=== PATIENT | female | born 1980 | race Caucasian/White ===

== ENCOUNTER 2016-08-25 20:53 | Emergency (ER) | payer BC, OTHER ==
[~2016-08-25] VITALS: Ht 152.4 cm; Wt 79.4 kg
[~2016-08-25 20:53] MED LIST: AC500T PO; ACET-2222 PO; AMOX500C2 PO; AZIT-21 PO; CLIN150C17 PO; CLIN300C11 PO; CLOT15CR4 TP; CPH250CIP PO; CPR500T PO; CYCL-97 PO; CYCL10TA45 PO; CYCL10TA9 PO; DCS100C PO; DICL25CA4 PO; FAMO20TA5 PO; FERR-47 PO; FLC100T1 PO; GABA-488 PO; HYDR-34 PO; HYDR-3720 PO; HYDR-3816 PO; HYDROCODONE; IBP800T PO; IBUP-1780 PO; LNS30CCR; NAPR-243 PO; NAPR-689 PO; NAPR550T PO; OMEP-10 PO; PHEN37.555; PHEN37.555 PO; PREN1TAB25 PO; RNT150T PO; SULF1TAB38 PO; TRAM50TA2 PO; TRM50T PO
[2016-08-25] MEDS ORDERED: KETOROLAC 60 MG/2 ML VIAL IM ONE (22:45)
[2016-08-25] MEDS ORDERED: PRD20T PO (22:45)
--- NOTE | 2016-08-25 22:46 | ED General ---
General Chief Complaint: Chest Wall/Rib Pain Stated Complaint: CHEST PAIN Nursing Triage Note: c/o left upper chest wall pain x2 weeks, seen at [facility] friday given motrin/flexeril. pt reports pain worse x2 days. denies injury. Nursing Sepsis Screen: No Definite Risk Source of Information: Patient Exam Limitations: No Limitations History of Present Illness Time Seen by Provider: 22:14 Initial Comments This 35-year-old woman presents to the emergency room with right hand paresthesias and pain around the left clavicle and left upper arm. Pain started a couple weeks ago. She was seen at the [facility] earlier last week. She has been taking ibuprofen without significant improvement. She takes Flexeril as well which helps her sleep but has not resolved the pain. Pain is a little worse with deep breathing and she has tenderness over the above -described areas. She also describes some pain with turning her neck. Allergies and Home Medications Allergies Coded Allergies: No Known Drug Allergies (Unverified , 01/09/09) Home Medications Cyclobenzaprine HCl 10 Mg Tablet #10 10 MG PO TID PRN PRN SPASMS Prescribed by: AMEENA ITWARI on 01/08/16 0325 Ibuprofen 800 Mg Tablet #20 1 TAB PO UD PRN PRN PAIN (Reported) Prednisone 20 Mg Tab #4 20 MG PO DAILY Prescribed by: AMEENA TIWARI on 08/25/16 8505 Constitutional: no symptoms reported EENTM: no symptoms reported Respiratory: no symptoms reported Cardiovascular: no symptoms reported Gastrointestinal: no symptoms reported Genitourinary: no symptoms reported Musculoskeletal: see HPI Skin: no symptoms reported Psychiatric/Neurological: See HPI Hematologic/Lymphatic: No Symptoms Reported Past Wxdoswv-Potfmg-Aggqsc Hx Patient Social History Alcohol Use: Denies Use Recreational Drug Use: No Smoking Status: Current Everyday Smoker Type Used: Cigarettes Recent Foreign Travel: No Contact w/Someone Who Travel: No Recent Infectious Disease Expo: No Recent Hopitalizations: No Immunizations Up To Date Tetanus Booster (TDap): Unknown Seasonal Allergies Seasonal Allergies: No Surgeries HX Surgeries: Yes (5 C-SECTIONS) Surgeries: Section Respiratory Hx Respiratory Disorders: No Cardiovascular Hx Cardiac Disorders: No Neurological Hx Neurological Disorders: Yes Neurological Disorders: Headaches /Migraines Reproductive System : No Hx : 5 Hx Para: 5 Hx Reproductive Disorders: No Sexually Transmitted Disease: No Female Reproductive Disorders: Denies Genitourinary Hx Genitourinary Disorders: Yes Genitourinary Disorders: UTI-Chronic Gastrointestinal Hx Gastrointestinal Disorders: No Musculoskeletal Hx Musculoskeletal Disorders: Yes Musculoskeletal Disorders: Arthritis, Chronic Back Pain Endocrine Hx Endocrine Disorders: No HEENT HX ENT Disorders: No Cancer Hx Cancer: No Psychosocial Hx Psychiatric Problems: No Integumentary HX Skin/Integumentary Disorder: Yes (Chronic dermatitis of the hands) Blood Transfusions Hx Blood Disorders: No Adverse Reaction to a Blood Tr: No Family Medical History Significant Family History: No Pertinent Family Hx Family Medial History: Family history: Hypertension 19 MOTHER Physical Exam Vital Signs Vital Sign - Last 12Hours 08/25/16 21:11 Temp 97.6 Pulse 89 Resp 16 B/P 123/74 Pulse Ox 99 O2 Delivery Room Air Capillary Refill : Less Than 3 Seconds General Appearance: No Apparent Distress WD/WN HEENT: PERRL/EOMI Normal ENT Inspection Neck: Normal Inspection Tender Lateral (Over the left paraspinous muscles) Respiratory: Lungs Clear Normal Breath Sounds No Accessory Muscle Use No Respiratory Distress Other (Upper left anterior chest is tender near the sternoclavicular joint and beneath the left clavicle) Cardiovascular: Regular Rate, Rhythm No Edema No Murmur Gastrointestinal: Non Tender Soft Extremity: Normal Inspection No Pedal Edema Neurologic/Psychiatric: Alert Oriented x3 No Motor/Sensory Deficits Normal Mood/Affect clamp operator II-XII Norm as Tested Skin: Normal Color Warm/Dry Progress/Results/Core Measures Results/Orders My Orders Orders-AMEENA CAO MD Chest Pa/Lat (2 View) (08/25/16 22:21) Ketorolac Injection (Toradol Injection) (08/25/16 22:45) Vital Signs/I&O Blood Pressure Mean: 90 Progress Note : Progress Note Pain appeared to be musculoskeletal in nature with tenderness over the left upper anterior chest near the clavicle and over the left neck. Toradol was administered in the ER. Chest x-ray was unremarkable. Diagnostic Imaging Diagonstic Imaging: Xray Plain Films/CT/US/NM/MRI: chest Comments Chest x-ray viewed by me and report not yet available. No acute abnormalities appreciated. Departure Impression Impression: Primary Impression: Chest wall pain Additional Impression: Neck pain on left side Disposition: 01 HOME, SELF-CARE Condition: Improved Departure-Patient Inst. Decision time for Depature: 22:35 Referrals: [facility] (PCP/Family) Primary Care Physician Patient Instructions: Chest Pain That Is Not Caused by the Heart (DC) Add. Discharge Instructions: You may continue using Tylenol and/or ibuprofen for pain. Use the prednisone as prescribed. Take prednisone and ibuprofen with food or milk to avoid irritation on your stomach. Follow-up with your primary care provider if not improving after a few days. All discharge instructions reviewed with patient and/or family. Voiced understanding. Scripts Prednisone 20 Mg Tab20 Mg PO DAILY #4 TAB Prov:AMEENA CAO MD 08/25/16 AMEENA CAO MD Aug 25, 2016 22:45
[2016-08-25 22:54] VITALS: BP 100/63
--- NOTE | 2016-08-26 07:59 | Diagnostic Imaging Report ---
INDICATION: Left upper chest wall pain for two weeks, no known injury. DISCUSSION: 2 views of the chest were obtained, comparison 11/11/2010. The heart and lungs are normal. No acute osseous abnormality identified. IMPRESSION: Negative chest. Dictated by: Dictated on workstation # [id number]
== END 2016-08-25 22:54 | disposition home or self-care (01) ==
LOC: EDUNIT# 20:53 → ER 20:56
DX: R07.89 Other chest pain (principal); M54.2 Cervicalgia; R20.2 Paresthesia of skin; F17.210 Nicotine dependence, cigarettes, uncomplicated
CPT/HCPCS: 71020; 96372; 99283

== ENCOUNTER 2017-08-05 21:42 | Emergency (ER) | payer OTHER ==
[~2017-08-05] VITALS: Ht 154.9 cm; Wt 77.1 kg
[~2017-08-05 21:42] MED LIST changes: -HYDR-3816 PO; +PRD20T PO
--- OUTSIDE RECORDS SUMMARY | 2017-08-05 21:47 | XMS REPORT ---
Author Author JUN LO [facility] Address Unknown Care Team Providers Care District Manager Major Accounts Sales Name Role Phone JUN LO Unavailable PROBLEMS Type Condition ICD9-CM Code [id number] Code Onset Dates Condition Status SNOMED Code Problem Bilateral low back pain without sciatica M54.5 Active 728484916 Problem Muscle spasm of back M62.830 Active 177624033 Assessment Dental examination Z01.20 Jan, Active 933203869 ALLERGIES Substance Reaction Event Type Date Status N.K.D.A. Unknown Non Drug Allergy Jan, Unknown SOCIAL HISTORY No smoking Hx information available PLAN OF CARE VITAL SIGNS Height 60 in 2016-02-01 Blood pressure systolic 121 mmHg 2016-02-01 Blood pressure diastolic 84 mmHg 2016-02-01 MEDICATIONS Medication Instructions Dosage Frequency Start Date End Date Duration Status Azithromycin 250 MG Orally Once a day 2 tablets on the first day, then 1 tablet daily for 4 days 24h Jan, Jan, 5 day(s) Active Naproxen 500 MG Orally every 12 hrs 1 tablet as needed 12h Active Flexeril Active Motrin IB 200 MG Orally every 6 hrs 1 tablet as needed 6h Jan, Jan, 5 days Active RESULTS No Results PROCEDURES Procedure Date Ordered Related Diagnosis Body Site Dental no charge Feb 01, 2016 IMMUNIZATIONS No Known Immunizations
--- OUTSIDE RECORDS SUMMARY | 2017-08-05 21:48 | XMS REPORT ---
Author Author JUN LO [employer] Address Unknown Phone Unavailable Care Team Providers Care Image Editor Name Role Phone JUN LO CP Unavailable Allergies, Adverse Reactions, Alerts Substance Reaction Event Type N.K.D.A. Info Not Available Non Drug Allergy Problems Problem Type Condition Code Onset Dates Condition Status Problem Muscle spasm of back M62.830 Active Assessment Dental examination Z01.20 Active Problem Bilateral low back pain without sciatica M54.5 Active Medications Medication Code System Code Instructions Start Date End Date Status Dosage [place] [facility] [address]-25 5-325 MG Orally every 6 hrs Jan 12, 2016 Jan 17, 2016 1 tablet as needed Gabapentin [facility] [address]-76 300 MG Orally Three times a day December 15, 2015 1 capsule Amoxicillin [facility] [address]-18 500 MG Orally every 8 hrs Jan 12, 2016 Jan 17, 2016 1 capsule Procedures Procedure Coding System Code Date LTD ORAL EVALUATION - PROBLEM FOCUS CPT-4 D0140 Jan 12, 2016 Vital Signs Date/Time: Jan 12, 2016 Blood Pressure Diastolic 84 mmHg Blood Pressure Systolic 122 mmHg Height 60 in Results No Known Results Summary Purpose [employer] Submission
--- OUTSIDE RECORDS SUMMARY | 2017-08-05 21:48 | XMS REPORT ---
Author Author ONI MA [facility] Address [address] [place] [address] Care Team Providers Care Patrol Judge Name Role Phone ONI MA Unavailable PROBLEMS Type Condition ICD9-CM Code PBY07-SF Code Onset Dates Condition Status SNOMED Code Problem Muscle spasm of back M62.830 Active 168003598 Problem Bilateral low back pain without sciatica M54.5 Active 586126055 ALLERGIES No Information SOCIAL HISTORY Never Assessed PLAN OF CARE VITAL SIGNS MEDICATIONS Unknown Medications RESULTS No Results PROCEDURES No Known procedures IMMUNIZATIONS No Known Immunizations MEDICAL (GENERAL) HISTORY Type Description Date Surgical History sectionx5 Hospitalization History Kidney infection
--- OUTSIDE RECORDS SUMMARY | 2017-08-05 21:48 | XMS REPORT ---
Author Author JOSE RAFAEL PORRAS Organization [employer] Address Unknown Phone Unavailable Care Team Providers Care Pinked Edge Sewing Machine Operator Name Role Phone JOSE RAFAEL PORRAS CP Unavailable Allergies No Known Allergies Problems Problem Type Condition ICD-9 Code Onset Dates Condition Status Problem Encounter for removal of intrauterine contraceptive device V25.12 Active Problem Contact dermatitis and other eczema due to detergents 692.0 Active Problem General counseling for prescription of oral contraceptives V25.01 Active Assessment Dental examination V72.2 Active Problem examination or test, positive result V72.42 Active Problem Previous delivery, unspecified as to episode of care or not applicable 654.20 Active Problem Spasm of muscle 728.85 Active Problem Tobacco use disorder complicating , childbirth, or the puerperium, unspecified as to episode of care or not applicable 649.00 Active Problem Pain in soft tissues of limb 729.5 Active Problem Other malaise and fatigue 780.79 Active Problem Headache 784.0 Active Problem Bicipital tenosynovitis 726.12 Active Medications No Known Medications Procedures Procedure Coding System Code Date INTRAORL-PERIAPICAL 1 FILM 03797 CPT-4 D0220 Feb 01, 2015 BITEWING - SINGLE FILM CPT-4 D0270 Feb 01, 2015 LTD ORAL EVALUATION - PROBLEM FOCUS CPT-4 D0140 Feb 01, 2015 EXTRAC ERUPTED TOOTH/EXPOSED ROOT CPT-4 D7140 Feb 01, 2015 Results No Known Results Summary Purpose [employer] Submission
--- OUTSIDE RECORDS SUMMARY | 2017-08-05 21:48 | XMS REPORT ---
Author VANDANA Alvarez Organization [employer] Address Unknown Phone Unavailable Care Team Providers Care Novelty Candy Maker Name Role Phone VANDANA SINCLAIR CP Unavailable Allergies, Adverse Reactions, Alerts Substance Reaction Event Type N.K.D.A. Info Not Available Non Drug Allergy Problems Problem Type Condition Code Onset Dates Condition Status Problem Muscle spasm of back M62.830 Active Assessment Bilateral low back pain without sciatica M54.5 Active Problem Bilateral low back pain without sciatica M54.5 Active Assessment Muscle spasm of back M62.830 Active Medications Medication Code System Code Instructions Start Date End Date [place] [address]-10 500 MG Orally every 12 hrs Jun 27, 2015 August 26, 2015 1 tablet as needed Cyclobenzaprine HCl [facility] [address]-45 10 MG Orally Three times a day JunAugust 26, 2015 1 tablet Flexeril NDC 0 not defined Tramadol HCl NDC 0 not defined Naproxen NDC [address]-28 500 MG Orally every 12 hrs 1 tablet as needed Procedures Procedure Coding System Code Date Office Visit, Est Pt., Level 3 CPT-4 88840 Jun 27, 2015 X-RAY EXAM OF LOWER SPINE CPT-4 63418 Jun 27, 2015 Vital Signs Date/Time: Jun 27, 2015 Temperature 98.5 F Weight 185.9 lbs Height 60 in BMI 36.30 Index Blood Pressure Diastolic 60 mmHg Blood Pressure Systolic 110 mmHg Cardiac Monitoring Heart Rate 88 bpm Results No Known Results Summary Purpose [employer]Works Submission
--- OUTSIDE RECORDS SUMMARY | 2017-08-05 21:48 | XMS REPORT ---
Author Author TORRES TRENT [facility] [employer] Address Unknown Phone Unavailable Care Team Providers Care Steam Fitter Supervisor Name Role Phone TORRES TRENT CP Unavailable Allergies, Adverse Reactions, Alerts Substance Reaction Event Type N.K.D.A. Info Not Available Non Drug Allergy Problems Problem Type Condition Code Onset Dates Condition Status Problem Muscle spasm of back M62.830 Active Assessment Dental examination Z01.20 Active Problem Bilateral low back pain without sciatica M54.5 Active Medications Medication Code System Code Instructions Start Date End Date Status Dosage [place] [facility] [address]-99 5-325 MG Orally every 6 hrs 1 tablet as needed Tramadol HCl [facility] [address]-72 50 mg Orally every 6 hrs December 15, 2015 1 tablet as needed Gabapentin [facility] [address]-93 300 MG Orally Three times a day December 15, 2015 1 capsule Clindamycin HCl [facility] [address]-61 300 MG Orally every 8 hrs December 15, 2015 December 22, 2015 1 capsule Procedures Procedure Coding System Code Date LTD ORAL EVALUATION - PROBLEM FOCUS CPT-4 D0140 December 19, 2015 Results No Known Results Summary Purpose eClinicalWorks Submission
--- OUTSIDE RECORDS SUMMARY | 2017-08-05 21:48 | XMS REPORT ---
Author Author VANDANA SINCLAIR Organization [employer] Address Unknown Phone Unavailable Care Team Providers Care Insurance Plan Specialist Name Role Phone VANDANA SINCLAIR CP Unavailable Allergies No Known Allergies Problems Problem Type Condition Code Onset Dates Condition Status Problem Muscle spasm of back M62.830 Active Assessment Bilateral low back pain without sciatica M54.5 Active Problem Bilateral low back pain without sciatica M54.5 Active Medications Medication Code System Code Instructions Start Date End Date Status Dosage PredniSONE [facility] [address]-43 10 MG Orally Once a day Jun 30, 2015 Jul 10, 2015 4 tablets for 4 days, then 3 tablets for 3 days, then 2 tablets for 2 days, then 1 tablet for 1 day. Results No Known Results Summary Purpose [employer] Submission
--- OUTSIDE RECORDS SUMMARY | 2017-08-05 21:48 | XMS REPORT ---
Author Author VANDANA SINCLAIR Organization [employer] Address Unknown Phone Unavailable Care Team Providers Care Water Fitness Instructor Name Role Phone VANDANA SINCLAIR CP Unavailable Allergies No Known Allergies Problems Problem Type Condition Code Onset Dates Condition Status Problem Muscle spasm of back M62.830 Active Problem Bilateral low back pain without sciatica M54.5 Active Medications No Known Medications Results No Known Results Summary Purpose [employer] Submission
--- OUTSIDE RECORDS SUMMARY | 2017-08-05 21:49 | XMS REPORT | Continuity of Care Document ---
Author Author [facility] Address Unknown Phone Unavailable Allergies Active Description Code Type Severity Reaction Onset Reported/Identified Relationship to Patient Clinical Status Yes No Known Drug Allergies [id number] Drug Allergy Mild N/A 01/09/2009 Medications There is no data. Problems Date Dx Coded Attending Type Code Diagnosis Diagnosed By 10/05/2009 ONI MA DO V65.11 NEW MOMMY VISIT 10/05/2009 V65.11 NEW MOMMY VISIT 10/05/2009 ONI MA DO V65.11 NEW MOMMY VISIT 10/05/2009 ONI MA DO V65.11 NEW MOMMY VISIT 10/05/2009 ONI MA DO V65.11 NEW MOMMY VISIT 10/05/2009 KASSIE FALK APRN A V65.11 NEW MOMMY VISIT 10/05/2009 ONI MA DO V65.11 NEW MOMMY VISIT 07/22/2012 ONI MA DO 726.12 BICIPITAL TENOSYNOVITIS 07/22/2012 ONI MA DO K 729.5 ARM PAIN 07/22/2012 726.12 BICIPITAL TENOSYNOVITIS 07/22/2012 729.5 ARM PAIN 07/22/2012 ONI MA DO 726.12 BICIPITAL TENOSYNOVITIS 07/22/2012 ONI MA DO K 729.5 ARM PAIN 07/22/2012 ONI MA DO K 726.12 BICIPITAL TENOSYNOVITIS 07/22/2012 ONI MA DO K 729.5 ARM PAIN 07/22/2012 ONI MA DO K 726.12 BICIPITAL TENOSYNOVITIS 07/22/2012 PAULA MA DOA K 729.5 ARM PAIN 07/22/2012 KASSIE FALK APRN A 726.12 BICIPITAL TENOSYNOVITIS 07/22/2012 KASSIE FALK APRN A 729.5 ARM PAIN 07/22/2012 MA DO, ONI K 726.12 BICIPITAL TENOSYNOVITIS 07/22/2012 MA DO, ONI K 729.5 ARM PAIN 11/04/2012 V25.01 CONTRACEPTION - ORAL CONTRACEPTION 11/04/2012 V25.12 IUD REMOVAL 11/04/2012 MA DO, ONI K V25.01 CONTRACEPTION - ORAL CONTRACEPTION 11/04/2012 MA DO, ONI K V25.12 IUD REMOVAL 11/04/2012 MA DO, ONI K V25.01 CONTRACEPTION - ORAL CONTRACEPTION 11/04/2012 MA DO, ONI K V25.12 IUD REMOVAL 11/04/2012 MA DO, ONI K V25.01 CONTRACEPTION - ORAL CONTRACEPTION 11/04/2012 MA DO, ONI K V25.12 IUD REMOVAL 11/04/2012 DEYA POSTAL INSPECTOR, KASSIE A V25.01 CONTRACEPTION - ORAL CONTRACEPTION 11/04/2012 DEYA POSTAL INSPECTOR, KASSIE A V25.12 IUD REMOVAL 11/04/2012 MA DO, ONI K V25.01 CONTRACEPTION - ORAL CONTRACEPTION 11/04/2012 MA DO, ONI K V25.12 IUD REMOVAL 03/16/2013 MA DO, ONI K 728.85 SPASM OF MUSCLE 03/16/2013 MA DO, ONI K 784.0 HEADACHE 03/16/2013 MA DO, ONI K 728.85 SPASM OF MUSCLE 03/16/2013 MA DO, ONI K 784.0 HEADACHE 03/16/2013 MA DO, ONI K 728.85 SPASM OF MUSCLE 03/16/2013 MA DO, ONI K 784.0 HEADACHE 03/16/2013 DEYA POSTAL INSPECTOR, KASSIE A 728.85 SPASM OF MUSCLE 03/16/2013 DEYA POSTAL INSPECTOR, KASSIE A 784.0 HEADACHE 03/16/2013 MA DO, ONI K 728.85 SPASM OF MUSCLE 03/16/2013 MA DO, ONI K 784.0 HEADACHE 03/24/2013 MA DO, ONI K 780.79 fatigue 03/24/2013 MA DO, ONI K 799.22 IRRITABILITY 03/24/2013 MA DO, ONI K 780.79 fatigue 03/24/2013 MA DO, ONI K 799.22 IRRITABILITY 03/24/2013 DEYA POSTAL INSPECTOR, KASSIE A 780.79 fatigue 03/24/2013 KASSIE FALK APRN A 799.22 IRRITABILITY 03/24/2013 ONI MA DO K 780.79 fatigue 03/24/2013 ONI MA DO K 799.22 IRRITABILITY 04/07/2013 ONI MA DO V72.42 EXAMINATION OR TEST POSITIVE RESULT 04/07/2013 KASSIE FALK APRN A V72.42 EXAMINATION OR TEST POSITIVE RESULT 04/07/2013 ONI MA DO K V72.42 EXAMINATION OR TEST POSITIVE RESULT 05/11/2013 KASSIE FALK APRN A 649.00 COMPL OF - TOBACCO USE 05/11/2013 KASSIE FALK APRN A 654.20 PREVIOUS 05/11/2013 ONI MA DO K 649.00 COMPL OF - TOBACCO USE 05/11/2013 ONI MA DO K 654.20 PREVIOUS 05/15/2014 ZAYRA OLMSTEAD MD Ot 723.4 05/15/2014 ZAYRA OLMSTEAD MD Ot 724.2 03/23/2015 Ot L25.9 12/05/2015 SRIDHAR ORTIZ APRN Ot F17.210 NICOTINE DEPENDENCE, CIGARETTES, UNCOMPL 12/05/2015 SRIDHAR ORTIZ APRN Ot R51 HEADACHE 12/06/2015 SRIDHAR ORTIZ APRN Ot F17.210 NICOTINE DEPENDENCE, CIGARETTES, UNCOMPL 12/06/2015 SRIDHAR ORTIZ APRN Ot R51 HEADACHE 12/17/2015 SRIDHAR ORTIZ APRN Ot K02.9 DENTAL CARIES, UNSPECIFIED 12/19/2015 SRIDHAR ORTIZ APRN Ot K02.9 DENTAL CARIES, UNSPECIFIED 01/08/2016 KILEY DONALD, AMEENA Duran Ot F17.210 NICOTINE DEPENDENCE, CIGARETTES, UNCOMPL 01/08/2016 KILEY DONALD, AMEENA Duran Ot R11.2 NAUSEA WITH VOMITING, UNSPECIFIED 01/08/2016 KILEY DONALD, AMEENA Duran Ot R51 HEADACHE 01/08/2016 KILEY DONALD, AMEENA Duran Ot S16.1XXA STRAIN OF MUSCLE, FASCIA AND TENDON AT N 01/08/2016 AMEENA CAO MD Ot X58.XXXA EXPOSURE TO OTHER SPECIFIED FACTORS, INI 01/08/2016 KILEY DONALD, AMEENA Duran Ot Y99.8 OTHER EXTERNAL CAUSE STATUS 08/25/2016 AMEENA CAO MD Ot F17.210 NICOTINE DEPENDENCE, CIGARETTES, UNCOMPL 08/25/2016 AMEENA CAO MD Ot M54.2 CERVICALGIA 08/25/2016 AMEENA CAO MD Ot R07.89 OTHER CHEST PAIN 08/25/2016 AMEENA CAO MD Ot R20.2 PARESTHESIA OF SKIN 08/27/2016 AMEENA CAO MD Ot F17.210 NICOTINE DEPENDENCE, CIGARETTES, UNCOMPL 08/27/2016 AMEENA CAO MD Ot M54.2 CERVICALGIA 08/27/2016 AMEENA CAO MD Ot R07.89 OTHER CHEST PAIN 08/27/2016 AMEENA CAO MD Ot R20.2 PARESTHESIA OF SKIN Procedures Code Description Performed By Performed On MATTHEW OBREGON 07/22/2012 93029 ANTIBODY SCREEN (order) 05/11/2013 77086 URINE TEST (IN- HOUSE) 05/11/2013 04795 UA OB DIP 05/11/2013 36778 CBC 05/11/2013 26459 TSH 05/11/2013 88506 HEP B SURFACE ANTIGEN (RML) 05/11/2013 92213 SYPHILLIS TEST 05/11/2013 4553568 ANTIBODY SCREEN (RESULT ONLY) 05/12/2013 75409 BLOOD TYPE/Rh FACTOR 05/12/2013 90236 HIV ANTIBODIES (RML) 05/12/2013 97259 RUBELLA ANTIBODY, IGG 05/12/2013 48435 CULTURE URINE 05/12/2013 Results There is no data. Encounters ACCT No. Visit Date/Time Discharge Status Pt. Type Provider Facility Loc./Unit Complaint [id number] 05/11/2013 10:53:00 05/11/2013 23:59:59 CLS Outpatient ONI MA DO [id number] 05/11/2013 10:53:00 05/11/2013 23:59:59 CLS Outpatient KASSIE FALK APRN [id number] 04/07/2013 09:31:00 04/07/2013 23:59:59 CLS Outpatient ONI MA DO [id number] 03/24/2013 16:34:00 03/24/2013 23:59:59 CLS Outpatient ONI MA DO [id number] 03/16/2013 18:22:00 03/16/2013 23:59:59 CLS Outpatient ONI MA DO [id number] 07/22/2012 14:13:00 07/22/2012 23:59:59 CLS Outpatient ONI MA DO [id number] 11/04/2012 11:49:00 Document Registration [id number] 08/25/2016 20:56:00 08/25/2016 22:54:00 DIS Emergency AMEENA CAO MD [facility] ER CHEST PAIN [id number] 01/08/2016 02:12:00 01/08/2016 03:33:00 DIS Emergency AMEENA CAO MD [facility] ER HEADACHES, N/V [id number] 12/17/2015 22:03:00 12/17/2015 22:35:00 DIS Emergency SRIDHAR ORTIZ APRN [facility] ER DENTAL PAIN [id number] 12/05/2015 20:58:00 12/05/2015 22:51:00 DIS Emergency SRIDHAR ORTIZ POSTAL INSPECTOR [facility] ER [id number] 05/15/2014 12:20:00 05/15/2014 14:26:00 DIS Emergency ZAYRA OLMSTEAD MD [facility] ER [id number] 11/25/2013 10:00:00 11/27/2013 17:53:00 DIS Inpatient [id number] 11/18/2013 11:15:00 11/18/2013 23:59:59 CLS Outpatient [id number] 11/08/2013 17:10:00 11/08/2013 18:45:00 DIS Outpatient [id number] 10/16/2013 17:21:00 10/16/2013 19:55:00 DIS Outpatient [id number] 09/14/2013 09:42:00 09/14/2013 23:59:59 CLS Outpatient [id number] 08/26/2013 17:21:00 08/26/2013 19:07:00 DIS Outpatient [id number] 08/19/2013 14:03:00 08/19/2013 23:59:59 CLS Outpatient [id number] 08/18/2013 18:23:00 08/18/2013 20:00:00 DIS Emergency [id number] 07/03/2013 02:19:00 07/03/2013 06:11:00 DIS Emergency [id number] 04/02/2013 11:33:00 04/02/2013 23:59:59 CLS Outpatient [id number] 04/01/2013 20:38:00 04/01/2013 23:11:00 DIS Emergency [id number] 11/02/2012 04:09:00 11/03/2012 14:00:00 DIS Inpatient [id number] 03/23/2015 22:43:00 Document Registration
[2017-08-05] MEDS ORDERED: LACTATED RINGERS 1,000 ML IV ONE (22:02)
--- NOTE | 2017-08-05 22:06 | ED GI ---
General Chief Complaint: Abdominal/GI Problems Stated Complaint: ABD AND BACK PAIN, HEADACHE, NAUSEA Nursing Triage Note: pt presents to er with complaint of lower abdominal pain and nausea. states it started a few days ago Sepsis Screen: No Definite Risk Source of Information: Patient Exam Limitations: No Limitations History of Present Illness Date Seen by Provider: Aug 05, 2017 Time Seen by Provider: 21:56 Initial Comments Patient presents to the ER by private conveyance with a chief complaint of nausea without vomiting for the last 3 or 4 days has progressively gotten worse , malaise, chills but no objective fever. She has no history of abdominal surgery other than 5 C-sections. She had a bowel movement this morning that was normal, formed without blood in it. She's not been around anybody with any sick features. She has no dysuria or discharge. Her last missed her period was 3-1/2 weeks ago and she is not on any kind of control. She is not having any pain in her belly or chest. No shortness of breath or coughing. No nasal congestion or ears feeling like her under water or having pain or pressure. Allergies and Home Medications Allergies Coded Allergies: No Known Drug Allergies (Unverified , 08/05/17) Home Medications Cyclobenzaprine HCl 10 Mg Tablet, 10 MG PO TID PRN for SPASMS Prescribed by: AMEENA TIWARI on 01/08/16 0325 Ibuprofen 800 Mg Tablet, 1 TAB PO UD PRN for PAIN, (Reported) Prednisone 20 Mg Tab, 20 MG PO DAILY Prescribed by: AMEENA TIWARI on 08/25/16 2245 Review of Systems Constitutional: No chills, No diaphoresis EENTM: No Blurred Vision, No Double Vision Respiratory: Denies Cough, Denies Shortness of Air Cardiovascular: Denies Chest Pain, Denies Edema, Denies Irregular Heart Rate, Denies Palpitations Gastrointestinal: Denies Abdomen Distended, Denies Abdominal Pain, Denies Constipated, Denies Diarrhea, Nausea, Denies Vomiting Genitourinary: Denies Discharge, Denies Drainage Musculoskeletal: No back pain, No joint pain Past Diysfiq-Nbbpki-Ojffna Hx Patient Social History Alcohol Use: Denies Use Recreational Drug Use: No Smoking Status: Current Everyday Smoker Type Used: Cigarettes Recent Foreign Travel: No Contact w/Someone Who Travel: No Recent Infectious Disease Expo: No Recent Hopitalizations: No Immunizations Up To Date Tetanus Booster (TDap): Unknown Seasonal Allergies Seasonal Allergies: No Surgeries History of Surgeries: Yes (5 C-SECTIONS) Surgeries: Section Respiratory History of Respiratory Disorde: No Cardiovascular History of Cardiac Disorders: No Neurological History of Neurological Disord: Yes Neurological Disorders: Headaches /Migraines Reproductive System Hx Reproductive Disorders: No Sexually Transmitted Disease: No Female Reproductive Disorders: Denies Genitourinary Genitourinary Disorders: UTI-Chronic Gastrointestinal History of Gastrointestinal Di: No Musculoskeletal History of Musculoskeletal Dis: Yes Musculoskeletal Disorders: Arthritis, Chronic Back Pain Endocrine History of Endocrine Disorders: No Cancer History of Cancer: No Psychosocial History of Psychiatric Problem: No Integumentary History of Skin or Integumenta: Yes (Chronic dermatitis of the hands) Blood Transfusions History of Blood Disorders: No Adverse Reaction to a Blood Tr: No Family Medical History Significant Family History: No Pertinent Family Hx Family Medial History: Family history: Hypertension 19 MOTHER Physical Exam Vital Signs VS - Last 72 Hours, by Label 08/05/17 21:45 Temp 98.7 Pulse 96 Resp 20 B/P (MAP) 119/74 (89) Pulse Ox 97 O2 Delivery Room Air Capillary Refill : Less Than 3 Seconds General Appearance: WD/WN, no apparent distress HEENT: PERRL/EOMI, normal ENT inspection, TMs normal, pharynx normal ( Oropharynx is dry) Neck: non-tender, full range of motion, supple, normal inspection Respiratory: chest non-tender, lungs clear, normal breath sounds, no respiratory distress, no accessory muscle use Cardiovascular: normal peripheral pulses, regular rate, rhythm, no edema, no murmur Peripheral Pulses: 2+ Dorsalis Pedis (R), 2+ Left Dors-Pedis (L) Gastrointestinal: normal bowel sounds, non tender, soft, no organomegaly Back: normal inspection, no vertebral tenderness, CVA tenderness (L) Neurologic/Psychiatric: alert, normal mood/affect, oriented x 3 Skin: normal color, warm/dry Progress/Results/Core Measures Results/Orders Lab Results Laboratory Tests Test 08/05/17 21:50 08/05/17 22:10 Range/Units Urine Color YELLOW Urine Clarity CLEAR Urine pH 6 5-9 Urine Specific Browning 1.020 1.016-1.022 Urine Protein NEGATIVE NEGATIVE Urine Glucose (UA) NEGATIVE NEGATIVE Urine Ketones NEGATIVE NEGATIVE Urine Nitrite NEGATIVE NEGATIVE Urine Bilirubin NEGATIVE NEGATIVE Urine Urobilinogen NORMAL NORMAL MG/DL Urine Leukocyte Esterase NEGATIVE NEGATIVE Urine RBC (Auto) 2+ H NEGATIVE Urine RBC 2-5 H /HPF Urine WBC RARE /HPF Urine Squamous Epithelial Cells 10-25 H /HPF Urine Crystals NONE /LPF Urine Bacteria TRACE /HPF Urine Casts NONE /LPF Urine Mucus NEGATIVE /LPF Urine Culture Indicated NO Urine Test NEGATIVE NEGATIVE White Blood Count 17.0 H 4.3-11.0 10^3/uL Red Blood Count 3.84 L 4.35-5.85 10^6/uL Hemoglobin 11.7 11.5-16.0 G/DL Hematocrit 35 35-52 % Mean Corpuscular Volume 92 80-99 FL Mean Corpuscular Hemoglobin 31 25-34 PG Mean Corpuscular Hemoglobin Concent 33 32-36 G/DL Red Cell Distribution Width 15.3 H 10.0-14.5 % Platelet Count 327 130-400 10^3/uL Mean Platelet Volume 10.9 H 7.4-10.4 FL Neutrophils (%) (Auto) 59 42-75 % Lymphocytes (%) (Auto) 32 12-44 % Monocytes (%) (Auto) 6 0-12 % Eosinophils (%) (Auto) 3 0-10 % Basophils (%) (Auto) 1 0-10 % Neutrophils # (Auto) 10.1 H 1.8-7.8 X 10^3 Lymphocytes # (Auto) 5.4 H 1.0-4.0 X 10^3 Monocytes # (Auto) 1.0 0.0-1.0 X 10^3 Eosinophils # (Auto) 0.5 H 0.0-0.3 10^3/uL Basophils # (Auto) 0.1 0.0-0.1 10^3/uL Neutrophils % (Manual) 59 % Lymphocytes % (Manual) 39 % Monocytes % (Manual) 0 % Eosinophils % (Manual) 2 % Basophils % (Manual) 0 % Band Neutrophils 0 % Anisocytosis SLIGHT Sodium Level 138 135-145 MMOL/L Potassium Level 3.7 3.6-5.0 MMOL/L Chloride Level 108 H 98-107 MMOL/L Carbon Dioxide Level 20 L 21-32 MMOL/L Anion Gap 10 5-14 MMOL/L Blood Urea Nitrogen 12 7-18 MG/DL Creatinine 0.63 0.60-1.30 MG/DL Estimat Glomerular Filtration Rate > 60 BUN/Creatinine Ratio 19 Glucose Level 113 H 70-105 MG/DL Calcium Level 8.6 8.5-10.1 MG/DL Total Bilirubin 0.1 0.1-1.0 MG/DL Aspartate Amino Transf (AST/SGOT) 10 5-34 U/L Alanine Aminotransferase (ALT/SGPT) 13 0-55 U/L Alkaline Phosphatase 91 40-136 U/L Total Protein 6.6 6.4-8.2 GM/DL Albumin 3.9 3.2-4.5 GM/DL Lipase 24 8-78 U/L My Orders Orders - AIME PEREZ Cbc With Automated Diff (08/05/17 22:02) Comprehensive Metabolic Panel (08/05/17 22:02) Hcg,Qualitative Urine (08/05/17 22:02) Ua Culture If Indicated (08/05/17 22:02) Saline Lock/Iv-Start (08/05/17 22:02) Lactated Ringers (Lr 1000 Ml Iv Solution (08/05/17 22:02) Ondansetron Injection (Zofran Injectio (08/05/17 22:15) Manual Differential (08/05/17 22:10) Ondansetron Injection (Zofran Injectio (08/05/17 22:45) Lipase (08/05/17 22:44) Ct Abd/Pelv W (Appendicitis) (08/05/17 22:48) Iohexol Injection (Omnipaque 350 Mg/Ml 1 (08/05/17 23:00) Ns (Ivpb) (Sodium Chloride 0.9% Ivpb Bag (08/05/17 23:00) Medications Given in ED Current Medications Medications Dose Ordered Sig/Franc Route Start Time Stop Time Status Last Admin Dose Admin Iohexol 100 ml ONCE ONCE IV 08/05/17 23:00 08/05/17 23:06 DC 08/05/17 23:15 100 ML Lactated Ringer's 1,000 ml @ 0 mls/hr Q0M ONCE IV 08/05/17 22:02 08/05/17 22:03 DC 08/05/17 22:15 1,000 MLS/HR Ondansetron HCl 4 mg ONCE ONCE IVP 08/05/17 22:15 08/05/17 22:16 DC 08/05/17 22:15 4 MG Ondansetron HCl 4 mg ONCE ONCE IVP 08/05/17 22:45 08/05/17 22:46 DC 08/05/17 22:48 4 MG Sodium Chloride 100 ml ONCE ONCE IV 08/05/17 23:00 08/05/17 23:06 DC 08/05/17 23:15 100 ML Vital Signs/I&O Vital Sign - Last 12Hours 08/05/17 21:45 Temp 98.7 Pulse 96 Resp 20 B/P (MAP) 119/74 (89) Pulse Ox 97 O2 Delivery Room Air Blood Pressure Mean: 89 Progress Note #1: Time: 22:05 Progress Note We'll check a urinalysis, urine test as well as some basic labs. Sounds like it may be a viral gastroenteritis. She's been avoiding drinking for the past couple days because of her nausea so we'll make sure she has something anti-medic and give her some fluids back while she is waiting on lab results. Progress Note #2: Time: 22:45 Progress Note Seeing the white blood cells being 17,000 without a left shift prompted us to go back and reexamine the patient's abdomen again and she endorses a little bit of tenderness in the epigastric region to being depressed but no history of pancreatitis, alcohol, triglyceridemia. We added a lipase and she still having some nausea so we'll give another round of Zofran through IV. She has some mild tenderness over McBurney's point as well without rebound. No mesenteric signs. CMP reveals mild acidosis so we'll going to go ahead and just get a CT scan of her abdomen with contrast looking for appendicitis versus enteritis/colitis. Diagnostic Imaging Diagonstic Imaging: CT Plain Films/CT/US/NM/MRI: pelvis Comments Appendix is well seen, non-thickened or inflamed. No acute intra-abdominal abnormality noted. Stat read impression no acute findings. No evidence of appendicitis. Reviewed: Reviewed by Me Departure Impression Impression: Primary Impression: Gastroenteritis and colitis, viral Disposition: 01 HOME, SELF-CARE Condition: Improved Departure-Patient Inst. Decision time for Depature: 23:58 Referrals: [facility] (PCP/Family) Primary Care Physician Patient Instructions: Viral Gastroenteritis, Adult (DC) Add. Discharge Instructions: Drink plenty fluids and use one tablet of Zofran on the tongue every 4 hours as needed to control your nausea. Expect to be sick for 3-5 days usually. If your symptoms worsen or you begin to have chest pain, nausea that is not controlled by the pills, or other worrisome symptoms return to care. All discharge instructions reviewed with patient and/or family. Voiced understanding. Scripts Ondansetron (Ondansetron Odt) 4 Mg Tab.rapdis 4 MG PO Q6H Y for NAUSEA/VOMITING, #8 TAB 0 Refills Prov: AIME PEREZ 08/05/17 Copy Copies To 1: ONI MA TITUS J Aug 05, 2017 22:06
[2017-08-05 22:09] LABS: BILIRUBIN,URINE NEGATIVE (NEGATIVE); CLARITY,URINE CLEAR; COLOR,URINE YELLOW; GLUCOSE, URINE (UA) NEGATIVE (NEGATIVE); KETONES,URINE NEGATIVE (NEGATIVE); LEUKOCYTE ESTERASE ,URINE NEGATIVE (NEGATIVE); NITRITE,URINE NEGATIVE (NEGATIVE); PH,URINE 6 (5-9); PROTEIN,URINE NEGATIVE (NEGATIVE); UROBILINOGEN,URINE NORMAL (NORMAL)
[2017-08-05] MEDS ORDERED: ONDANSETRON 4 MG/2 ML (SDV) Z0FRAN IVP ONE ×2 (22:15→22:45)
[2017-08-05 22:19] LABS: BASOPHILS # (AUTO) 0.1 10^3/uL (0.0-0.1); BASOPHILS % (AUTO) 1 % (0-10); EOSINOPHILS # (AUTO) 0.5 10^3/uL (0.0-0.3); EOSINOPHILS % (AUTO) 3 % (0-10); HEMATOCRIT 35 % (35-52); HEMOGLOBIN 11.7 G/DL (11.5-16.0); LYMPHOCYTES # (AUTO) 5.4 X 10^3 (1.0-4.0); LYMPHOCYTES % (AUTO) 32 % (12-44); MEAN CORPUSCULAR HEMOGLOBIN 31 PG (25-34); MEAN CORPUSCULAR HGB CONC 33 G/DL (32-36); MEAN CORPUSCULAR VOLUME 92 FL (80-99); MEAN PLATELET VOLUME 10.9 FL (7.4-10.4); MONOCYTES % (AUTO) 6 % (0-12); NEUTROPHILS # (AUTO) 10.1 X 10^3 (1.8-7.8); NEUTROPHILS % (AUTO) 59 % (42-75); PLATELET COUNT 327 10^3/uL (130-400); RED BLOOD COUNT 3.84 10^6/uL (4.35-5.85); RED CELL DISTRIBUTION WIDTH 15.3 % (10.0-14.5)
[2017-08-05 22:20] LABS: BACTERIA,URINE TRACE /HPF; WBC,URINE RARE /HPF
[2017-08-05 22:40] LABS: ANISOCYTOSIS SLIGHT; BAND NEUTROPHILS 0 %; BASOPHILS % (MANUAL) 0 %; EOSINOPHILS % (MANUAL) 2 %; LYMPHOCYTES % (MANUAL) 39 %; MONOCYTES % (MANUAL) 0 %; NEUTROPHILS % (MANUAL) 59 %
[2017-08-05 22:44] LABS: ALANINE AMINOTRANSFERASE 13 U/L (0-55); ALBUMIN 3.9 GM/DL (3.2-4.5); ALKALINE PHOSPHATASE 91 U/L (40-136); BILIRUBIN,TOTAL 0.1 MG/DL (0.1-1.0); BUN/CREATININE RATIO 19; CALCIUM 8.6 MG/DL (8.5-10.1); CARBON DIOXIDE 20 MMOL/L (21-32); CHLORIDE 108 MMOL/L (98-107); CREATININE SERUM 0.63 MG/DL (0.60-1.30); GFR ESTIMATED > 60; GLUCOSE 113 MG/DL (70-105); POTASSIUM 3.7 MMOL/L (3.6-5.0); SODIUM 138 MMOL/L (135-145); TOTAL PROTEIN 6.6 GM/DL (6.4-8.2)
[2017-08-05] MEDS ORDERED: IOHEXOL 350 MG/ML 100 ML (OMNIPAQUE 350) VIAL IV ONE (23:00)
[2017-08-05] MEDS ORDERED: NS 100 ML (IVPB) BAG IV ONE (23:00)
[2017-08-05] MEDS ORDERED: ONDA4TAB11 PO (23:59)
[2017-08-05] MEDS ORDERED: RX-ONDANSETRON 4 MG ODT (ZOFRAN) PPK #4 PO STA (23:59)
[2017-08-06 00:07] VITALS: BP 119/74
--- NOTE | 2017-08-06 06:16 | Diagnostic Imaging Report ---
PROCEDURE: CT abdomen and pelvis with contrast, rule out appendicitis. TECHNIQUE: Multiple contiguous axial images were obtained through the abdomen and pelvis after the administration of intravenous contrast. INDICATION: Right lower quadrant pain with nausea and emesis. FINDINGS: There is mild low-density throughout the liver which may represent steatosis. Gallbladder, pancreas and spleen are unremarkable in appearance. There is no evidence of adrenal gland lesion. There is concentration of contrast in both kidneys without evidence of mass or hydronephrosis. Subcentimeter cyst is noted in the anterior cortex of the left kidney. There is no evidence of free fluid in the abdomen or pelvis. No pathologically enlarged adenopathy is identified. There is minimal atherosclerotic calcification involving the right iliac artery. There are probable follicles or cysts within both ovaries. Partially opacified urinary bladder is unremarkable. There is no evidence of localized inflammation. There is narrowing of the L5-S1 disc space with associated endplate spurring and degenerative facet arthropathy, greater on the right. IMPRESSION: No CT evidence of acute abdominal or pelvic abnormality. Dictated by: Dictated on workstation # [id number]
[2017-08-07] MEDS ORDERED: PRD20T PO (00:20)
[2017-08-07] MEDS ORDERED: PROM25TA14 PO (00:20)
== END 2017-08-06 00:07 | disposition home or self-care (01) ==
LOC: EDUNIT# 21:42 → ER 21:44
DX: A08.4 Viral intestinal infection, unspecified (principal); G43.909 Migraine, unspecified, not intractable, without status migrainosus; F17.210 Nicotine dependence, cigarettes, uncomplicated; Z32.02 Encounter for pregnancy test, result negative; Z87.59 Personal history of other complications of pregnancy, childbirth and the puerperium; Z79.52 Long term (current) use of systemic steroids
CPT/HCPCS: 36415; 74177; 80053; 81000; 83690; 84703; 85007; 85027; 96361; 96374; 96376

== ENCOUNTER 2017-08-06 22:24 | Emergency (ER) | payer OTHER ==
[~2017-08-06] VITALS: Ht 154.9 cm; Wt 77.1 kg
[~2017-08-06 22:24] MED LIST changes: +ONDA4TAB11 PO
[2017-08-06] MEDS ORDERED: KETOROLAC 30 MG/ML VIAL ONE (22:42)
[2017-08-06] MEDS ORDERED: LACTATED RINGERS 1,000 ML IV ONE (22:42)
--- NOTE | 2017-08-06 23:40 | ED Abdominal Pain ---
General Chief Complaint: Abdominal/GI Problems Stated Complaint: LEFT SIDE PAIN Source of Information: Patient Exam Limitations: No Limitations History of Present Illness Date Seen by Provider: Aug 06, 2017 Time Seen by Provider: 22:34 Initial Comments Patient presents to the ER after being seen last night by the same provider for symptoms of epigastric and left upper quadrant abdominal pain. She had a laboratory workup showing white blood cell 17,000 without left shift and negative CT of the abdomen pelvis. She says she went home and was doing better and her headache is improved however she is back tonight because she was shaking having increasing pain and feeling of a lump on her left upper quadrant abdomen. She has no dysuria or discharge. Shes having no nausea, acid reflux, indigestion. Shell bowel movement earlier today that was normal formed without diarrhea. She said no vomiting. No one else around her has similar symptoms. Her pain is worse when she takes deep inspirations. No cough, sputum, fever, chills. Allergies and Home Medications Allergies Coded Allergies: No Known Drug Allergies (Unverified , 08/05/17) Home Medications Cyclobenzaprine HCl 10 Mg Tablet, 10 MG PO TID PRN for SPASMS Prescribed by: AMEENA TIWARI on 01/08/16 0325 Ibuprofen 800 Mg Tablet, 1 TAB PO UD PRN for PAIN, (Reported) Ondansetron 4 Mg Tab.rapdis, 4 MG PO Q6H PRN for NAUSEA/VOMITING Prescribed by: AIME PEREZ on 08/05/17 1468 Prednisone 20 Mg Tab, 20 MG PO DAILY Prescribed by: AMEENA TIWARI on 08/25/16 2245 Review of Systems Constitutional: No chills, No diaphoresis, No fever, No malaise EENTM: No Blurred Vision, No Double Vision Respiratory: Denies Cough, Denies Shortness of Air Cardiovascular: Denies Chest Pain, Denies Edema, Denies Syncope Gastrointestinal: See HPI, Denies Abdomen Distended, Abdominal Pain, Denies Constipated, Denies Diarrhea Genitourinary: Denies Burning, Denies Discharge Musculoskeletal: No back pain, No joint pain Skin: No pruritus, No rash Psychiatric/Neurological: Denies Headache, Denies Numbness, Denies Paresthesia Past Dqdtzew-Brkqal-Dsgyyg Hx Patient Social History Smoking Status: Current Everyday Smoker Type Used: Cigarettes Recent Foreign Travel: No Contact w/Someone Who Travel: No Recent Hopitalizations: No Immunizations Up To Date Tetanus Booster (TDap): Unknown Seasonal Allergies Seasonal Allergies: No Surgeries History of Surgeries: Yes (5 C-SECTIONS) Surgeries: Section Respiratory History of Respiratory Disorde: No Cardiovascular History of Cardiac Disorders: No Neurological History of Neurological Disord: Yes Neurological Disorders: Headaches /Migraines Reproductive System Hx Reproductive Disorders: No Sexually Transmitted Disease: No Female Reproductive Disorders: Denies Genitourinary Genitourinary Disorders: UTI-Chronic Gastrointestinal History of Gastrointestinal Di: No Musculoskeletal History of Musculoskeletal Dis: Yes Musculoskeletal Disorders: Arthritis, Chronic Back Pain Endocrine History of Endocrine Disorders: No Cancer History of Cancer: No Psychosocial History of Psychiatric Problem: No Integumentary History of Skin or Integumenta: Yes (Chronic dermatitis of the hands) Blood Transfusions History of Blood Disorders: No Adverse Reaction to a Blood Tr: No Family Medical History Significant Family History: No Pertinent Family Hx Family Medial History: Family history: Hypertension 19 MOTHER Physical Exam Vital Signs VS - Last 72 Hours, by Label 08/06/17 22:30 Temp 98.2 Pulse 100 Resp 16 B/P (MAP) 117/69 (85) Pulse Ox 98 O2 Delivery Room Air Capillary Refill : General Appearance: WD/WN, mild distress HEENT: PERRL/EOMI, TMs normal, pharynx normal Neck: non-tender, supple, normal inspection Respiratory: chest non-tender, lungs clear, normal breath sounds, no respiratory distress, no accessory muscle use Cardiovascular: normal peripheral pulses, regular rate, rhythm, no edema Gastrointestinal: normal bowel sounds, soft, tenderness (all 4 quadrants expressed tenderness to palpation however she has more tenderness in the left upper quadrant especially one palpating directly over costochondral margins.) Back: normal inspection, no CVA tenderness, no vertebral tenderness Neurologic/Psychiatric: alert, normal mood/affect, oriented x 3 Skin: normal color, warm/dry Progress/Results/Core Measures Results/Orders Lab Results Laboratory Tests Test 08/06/17 23:00 Range/Units White Blood Count 16.4 H 4.3-11.0 10^3/uL Red Blood Count 3.95 L 4.35-5.85 10^6/uL Hemoglobin 11.9 11.5-16.0 G/DL Hematocrit 37 35-52 % Mean Corpuscular Volume 93 80-99 FL Mean Corpuscular Hemoglobin 30 25-34 PG Mean Corpuscular Hemoglobin Concent 32 32-36 G/DL Red Cell Distribution Width 15.3 H 10.0-14.5 % Platelet Count 314 130-400 10^3/uL Mean Platelet Volume 11.0 H 7.4-10.4 FL Neutrophils (%) (Auto) 61 42-75 % Lymphocytes (%) (Auto) 29 12-44 % Monocytes (%) (Auto) 7 0-12 % Eosinophils (%) (Auto) 3 0-10 % Basophils (%) (Auto) 0 0-10 % Neutrophils # (Auto) 10.0 H 1.8-7.8 X 10^3 Lymphocytes # (Auto) 4.8 H 1.0-4.0 X 10^3 Monocytes # (Auto) 1.1 H 0.0-1.0 X 10^3 Eosinophils # (Auto) 0.4 H 0.0-0.3 10^3/uL Basophils # (Auto) 0.1 0.0-0.1 10^3/uL Neutrophils % (Manual) 63 % Lymphocytes % (Manual) 31 % Monocytes % (Manual) 3 % Eosinophils % (Manual) 1 % Basophils % (Manual) 0 % Band Neutrophils 2 % Sodium Level 141 135-145 MMOL/L Potassium Level 3.5 L 3.6-5.0 MMOL/L Chloride Level 110 H 98-107 MMOL/L Carbon Dioxide Level 17 L 21-32 MMOL/L Anion Gap 14 5-14 MMOL/L Blood Urea Nitrogen 9 7-18 MG/DL Creatinine 0.68 0.60-1.30 MG/DL Estimat Glomerular Filtration Rate > 60 BUN/Creatinine Ratio 13 Glucose Level 129 H 70-105 MG/DL Calcium Level 9.0 8.5-10.1 MG/DL Total Bilirubin 0.1 0.1-1.0 MG/DL Aspartate Amino Transf (AST/SGOT) 11 5-34 U/L Alanine Aminotransferase (ALT/SGPT) 17 0-55 U/L Alkaline Phosphatase 96 40-136 U/L Total Protein 6.6 6.4-8.2 GM/DL Albumin 4.0 3.2-4.5 GM/DL Lipase 27 8-78 U/L Monoscreen NEGATIVE NEGATIVE My Orders Orders - AIME PEREZ Ketorolac Injection (Toradol Injection) (2/28/18 22:42) Lactated Ringers (Lr 1000 Ml Iv Solution (08/06/17 22:42) Chest Pa/Lat (2 View) (08/06/17 ) Cbc With Automated Diff (08/06/17 23:00) Comprehensive Metabolic Panel (08/06/17 23:00) Lipase (08/06/17 23:00) Monotest (08/06/17 23:00) Saline Lock/Iv-Start (08/07/17 00:05) Manual Differential (08/06/17 23:00) Medications Given in ED Current Medications Medications Dose Ordered Sig/Franc Route Start Time Stop Time Status Last Admin Dose Admin Ketorolac Tromethamine 30 mg STK-MED ONCE .ROUTE 08/06/17 22:42 08/06/17 23:12 DC 08/06/17 22:45 30 MG Lactated Ringer's 1,000 ml @ ud STK-MED ONCE IV 08/06/17 22:42 08/06/17 23:12 DC 08/06/17 22:45 0 MLS/HR Vital Signs/I&O Vital Sign - Last 12Hours 08/06/17 22:30 Temp 98.2 Pulse 100 Resp 16 B/P (MAP) 117/69 (85) Pulse Ox 98 O2 Delivery Room Air Progress Note #1: Time: 23:39 Progress Note Other than a modestly elevated white blood cell count without left shift and was found on previous workup. Tonight her white blood cell count is the same 16.3 still without significant left shift. Monoscreen was negative. Her spleen was unremarkable on the CT yesterday. Progress Note #2: Time: 00:17 Progress Note Her lab is unchanged and her examination is unchanged. He still having tenderness in her left upper quadrant. She's had no diarrhea or loose stools. Reviewed her CT imaging from yesterday offered a CT scan again tonight with the caveat that there is no interval change in her labs or presentation and the likely nothing will be different on CT scan and the patient declined. We are going to try a plan for possible costochondritis versus further chest pain using prednisone, NSAIDs and follow-up next week with a primary care physician. Departure Impression Impression: Primary Impression: Costochondritis Additional Impressions: Pleuritic chest pain Left upper quadrant abdominal pain of unknown etiology Disposition: 01 HOME, SELF-CARE Condition: Stable Departure-Patient Inst. Decision time for Depature: 00:18 Referrals: [facility] (PCP/Family) Primary Care Physician Patient Instructions: Acute Abdomen (Belly Pain), Adult (DC) Add. 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 Use ibuprofen 800 mg every 8 hours [id number] for Naprosyn 2 capsules twice a day for the next 2 weeks. Follow-up next week or the following with a primary care physician for further evaluation and management of your pain. If your pain is unbearable or start to have nausea vomiting, diarrhea or fever then you should return to the ER. All discharge instructions reviewed with patient and/or family. Voiced understanding. Scripts Promethazine HCl (Promethazine Tablet) 25 Mg Tablet 25 MG PO Q6H Y for NAUSEA/VOMITING, #20 TAB 0 Refills Prov: AIME PEREZ 08/07/17 Prednisone (Prednisone) 20 Mg Tab 20 MG PO BID for 5 Days, #10 TAB 0 Refills Prov: AIME PEREZ 08/07/17 Work/School Note: Work Release Form Date Seen in the Emergency Department: Aug 07, 2017 Return to Work: Aug 08, 2017 Restrictions: No Restrictions AIME PEREZ Aug 06, 2017 23:40
[2017-08-07 00:05] LABS: EOSINOPHILS % (AUTO) 3 % (0-10); HEMATOCRIT 37 % (35-52); HEMOGLOBIN 11.9 G/DL (11.5-16.0); LYMPHOCYTES % (AUTO) 29 % (12-44); MEAN CORPUSCULAR HEMOGLOBIN 30 PG (25-34); MEAN CORPUSCULAR HGB CONC 32 G/DL (32-36); MEAN CORPUSCULAR VOLUME 93 FL (80-99); MONOCYTES % (AUTO) 7 % (0-12); NEUTROPHILS % (AUTO) 61 % (42-75); PLATELET COUNT 314 10^3/uL (130-400); RED BLOOD COUNT 3.95 10^6/uL (4.35-5.85); RED CELL DISTRIBUTION WIDTH 15.3 % (10.0-14.5)
[2017-08-07 00:06] LABS: BASOPHILS # (AUTO) 0.1 10^3/uL (0.0-0.1); BASOPHILS % (AUTO) 0 % (0-10); EOSINOPHILS # (AUTO) 0.4 10^3/uL (0.0-0.3); LYMPHOCYTES # (AUTO) 4.8 X 10^3 (1.0-4.0); MONOCYTES # (AUTO) 1.1 X 10^3 (0.0-1.0); WHITE BLOOD COUNT 16.4 10^3/uL (4.3-11.0)
[2017-08-07 00:07] LABS: BAND NEUTROPHILS 2 %; BASOPHILS % (MANUAL) 0 %; EOSINOPHILS % (MANUAL) 1 %; LYMPHOCYTES % (MANUAL) 31 %; MONOCYTES % (MANUAL) 3 %; NEUTROPHILS % (MANUAL) 63 %
[2017-08-07 00:08] LABS: ALKALINE PHOSPHATASE 96 U/L (40-136); BILIRUBIN,TOTAL 0.1 MG/DL (0.1-1.0); BUN/CREATININE RATIO 13; CARBON DIOXIDE 17 MMOL/L (21-32); CHLORIDE 110 MMOL/L (98-107); CREATININE SERUM 0.68 MG/DL (0.60-1.30); GFR ESTIMATED > 60; GLUCOSE 129 MG/DL (70-105); POTASSIUM 3.5 MMOL/L (3.6-5.0); SODIUM 141 MMOL/L (135-145)
[2017-08-07 00:09] LABS: ALANINE AMINOTRANSFERASE 17 U/L (0-55); LIPASE 27 U/L (8-78); TOTAL PROTEIN 6.6 GM/DL (6.4-8.2)
[2017-08-07] MEDS ORDERED: PROM25TA14 PO (00:20)
[2017-08-07] MEDS ORDERED: PRD20T PO (00:20)
[2017-08-07] MEDS ORDERED: KETOROLAC 30 MG/ML VIAL IVP ONE (00:30)
[2017-08-07] MEDS ORDERED: PROMETHAZINE 25 MG (PHENERGAN) TAB PO ONE (00:30)
[2017-08-07 00:44] VITALS: BP 117/69
[2017-08-07] MEDS ORDERED: fentaNYL INJECTION 100 MCG/2 ML AMP IVP ONE (00:45)
--- NOTE | 2017-08-07 06:56 | Diagnostic Imaging Report ---
INDICATION: Nausea with cough. Comparison with 08/25/2016. FINDINGS: PA and lateral chest shows lungs to be well-aerated and clear. The heart is not enlarged. There is no hilar adenopathy. No pulmonary edema. No pneumothorax or pleural effusion. No bony abnormalities. IMPRESSION: Normal PA and lateral chest. Dictated by: Dictated on workstation # [id number]
== END 2017-08-07 00:44 | disposition home or self-care (01) ==
LOC: EDUNIT# 22:24 → ER 22:25
DX: M94.0 Chondrocostal junction syndrome [Tietze] (principal); R07.81 Pleurodynia; R10.12 Left upper quadrant pain; G43.909 Migraine, unspecified, not intractable, without status migrainosus; F17.210 Nicotine dependence, cigarettes, uncomplicated; Z87.440 Personal history of urinary (tract) infections; Z87.59 Personal history of other complications of pregnancy, childbirth and the puerperium
CPT/HCPCS: 36415; 71046; 80053; 83690; 85007; 85027; 86308; 96361; 96374; 96375

== ENCOUNTER 2017-08-15 16:33 | Emergency (ER) | payer OTHER ==
[~2017-08-15] VITALS: Ht 154.9 cm; Wt 77.1 kg
[~2017-08-15 16:33] MED LIST changes: +PROM25TA14 PO
[2017-08-15] MEDS ORDERED: IBUPROFEN 800 MG (MOTRIN) TAB PO STA (17:40)
[2017-08-15] MEDS ORDERED: NS IV 1000 ML 1,000 ML IV ONE (17:52)
[2017-08-15 18:01] LABS: BILIRUBIN,URINE NEGATIVE (NEGATIVE); CLARITY,URINE CLEAR; COLOR,URINE YELLOW; GLUCOSE, URINE (UA) NEGATIVE (NEGATIVE); KETONES,URINE NEGATIVE (NEGATIVE); LEUKOCYTE ESTERASE ,URINE NEGATIVE (NEGATIVE); NITRITE,URINE NEGATIVE (NEGATIVE); PH,URINE 8 (5-9); PROTEIN,URINE NEGATIVE (NEGATIVE); UROBILINOGEN,URINE NORMAL (NORMAL)
--- NOTE | 2017-08-15 18:04 | ED General ---
General Chief Complaint: Cough/Cold/Flu Symptoms Stated Complaint: FEVER/HEADACHE/BODY ACHES Nursing Triage Note: C/O fever, sore throat, and nasal congestion since this am- cough Nursing Sepsis Screen: Possible Sepsis Risk Source of Information: Patient Exam Limitations: No Limitations (TASHA BUSTOS MD) History of Present Illness Date Seen by Provider: Aug 15, 2017 Time Seen by Provider: 17:45 Initial Comments Here with report of upper respiratory congestion, fever, sore throat and headache since yesterday. Has had a variety of illnesses over the last 10 days and is currently on Cipro and Flagyl for abdominal problems. She also has taken. Rocephin headache and that has not helped. She does have migraines. Complains of being cold but has known fever here. Does have sick contacts in her family with similar. No vomiting or diarrhea. Timing/Duration: 1 Week, Getting Worse Severity: Moderate Associated Systoms: No Chest Pain, Cough, Fever/Chills, Headaches, No Nausea/ Vomiting, No Shortness of Air, No Weakness (TASHA BUSTOS MD) Allergies and Home Medications Allergies Coded Allergies: No Known Drug Allergies (Unverified , 08/15/17) Home Medications Cyclobenzaprine HCl 10 Mg Tablet, 10 MG PO TID PRN for SPASMS Prescribed by: AMEENA TIWARI on 01/08/16 0325 Ibuprofen 800 Mg Tablet, 1 TAB PO UD PRN for PAIN, (Reported) Ondansetron 4 Mg Tab.rapdis, 4 MG PO Q6H PRN for NAUSEA/VOMITING Prescribed by: AIME MOSLEY on 08/05/17 2359 Prednisone 20 Mg Tab, 20 MG PO DAILY Prescribed by: AMEENA TIWARI on 08/25/16 2245 Prednisone 20 Mg Tab, 20 MG PO BID Prescribed by: AIME MOSLEY on 08/07/17 0020 Promethazine HCl 25 Mg Tablet, 25 MG PO Q6H PRN for NAUSEA/VOMITING Prescribed by: AIME MOSLEY on 08/07/17 0020 Patient Home Medication List Home Medication List Reviewed: Yes (TASHA BUSTOS MD) Constitutional: No chills, No fever EENTM: nose congestion, throat pain, No ear pain Respiratory: cough, No short of breath Cardiovascular: no symptoms reported Gastrointestinal: see HPI, abdominal pain, No nausea, No vomiting Genitourinary: no symptoms reported : No (TASHA BUSTOS MD) All Other Systems Reviewed Negative Unless Noted: Yes (TASHA BUSTOS MD) Past Yqpyltq-Hvypge-Qamtgm Hx Patient Social History Alcohol Use: Denies Use Recreational Drug Use: No Smoking Status: Current Everyday Smoker Type Used: Cigarettes 2nd Hand Smoke Exposure: No Recent Foreign Travel: No Contact w/Someone Who Travel: No Recent Infectious Disease Expo: No Recent Hopitalizations: No Physical Abuse: No Sexual Abuse: No Mistreated: No Fear: No (TASHA BUSTOS MD) Immunizations Up To Date Tetanus Booster (TDap): Unknown (TASHA BUSTOS MD) Seasonal Allergies Seasonal Allergies: No (TASHA BUSTOS MD) Surgeries History of Surgeries: Yes (5 C-SECTIONS) Surgeries: Section (TASHA BUSTOS MD) Respiratory History of Respiratory Disorde: No (TASHA BUSTOS MD) Cardiovascular History of Cardiac Disorders: No (TASHA BUSTOS MD) Neurological History of Neurological Disord: Yes Neurological Disorders: Headaches /Migraines (TASHA BUSTOS MD) Reproductive System Hx Reproductive Disorders: No Sexually Transmitted Disease: No Female Reproductive Disorders: Denies (TASHA BUSTOS MD) Genitourinary Genitourinary Disorders: UTI-Chronic (TASHA BUSTOS MD) Gastrointestinal History of Gastrointestinal Di: No (TASHA BUSTOS MD) Musculoskeletal History of Musculoskeletal Dis: Yes Musculoskeletal Disorders: Arthritis, Chronic Back Pain (TASHA BUSTOS MD) Endocrine History of Endocrine Disorders: No (TASHA BUSTOS MD) Cancer History of Cancer: No (TASHA BUSTOS MD) Psychosocial History of Psychiatric Problem: No Suicide Risk Score: 0 (TASHA BUSTOS MD) Integumentary History of Skin or Integumenta: Yes (Chronic dermatitis of the hands) (TASHA BUSTOS MD) Blood Transfusions History of Blood Disorders: No Adverse Reaction to a Blood Tr: No (TASHA BUSTOS MD) Reviewed Nursing Assessment Reviewed/Agree w Nursing PMH: Yes (TASHA BUSTOS MD) Family Medical History Significant Family History: No Pertinent Family Hx Family Medial History: Family history: Hypertension 19 MOTHER (TASHA BUSTOS MD) Family Medial History: Family history: Hypertension 19 MOTHER (AIME MOSLEY) Physical Exam Vital Signs Vital Signs - First Documented 08/15/17 17:08 Temp 100.3 Pulse 105 Resp 20 B/P (MAP) 113/52 (72) Pulse Ox 100 (AIME MOSLEY) Vital Signs Capillary Refill : Less Than 3 Seconds (TASHA BUSTOS MD) General Appearance: No Apparent Distress, WD/WN HEENT: PERRL/EOMI, Pharyngeal Erythema, Other (moderate bilateral nasal congestion with erythema and clear rhinorrhea) Neck: Full Range of Motion, Supple Respiratory: Lungs Clear, Normal Breath Sounds Cardiovascular: Regular Rate, Rhythm, No Murmur Gastrointestinal: Normal Bowel Sounds, Non Tender, Soft Back: Normal Inspection, No CVA Tenderness, No Vertebral Tenderness Extremity: Normal Range of Motion, Non Tender, Other (does have body aches everywhere) Neurologic/Psychiatric: Alert, Oriented x3 Skin: Normal Color, Warm/Dry (TASHA BUSTOS MD) Progress/Results/Core Measures Suspected Sepsis Recent Fever Within 48 Hours: Yes Infection Criteria Present: Suspected New Infection New/Unexplained Altered Menta: No Sepsis Screen: Possible Sepsis Risk Sepsis Diagnosis: SIRS Temperature:100.3 Pulse: 105 Respiratory Rate: 20 Blood Pressure 113 /52 Mean: 72 (TASHA BUSTOS MD) Results/Orders Lab Results Laboratory Tests Test 08/15/17 17:51 08/15/17 18:10 Range/Units Urine Color YELLOW Urine Clarity CLEAR Urine pH 8 5-9 Urine Specific [place] 1.015 L 1.016-1.022 Urine Protein NEGATIVE NEGATIVE Urine Glucose (UA) NEGATIVE NEGATIVE Urine Ketones NEGATIVE NEGATIVE Urine Nitrite NEGATIVE NEGATIVE Urine Bilirubin NEGATIVE NEGATIVE Urine Urobilinogen NORMAL NORMAL MG/DL Urine Leukocyte Esterase NEGATIVE NEGATIVE Urine RBC (Auto) 1+ H NEGATIVE Urine RBC 2-5 H /HPF Urine WBC NONE /HPF Urine Squamous Epithelial Cells RARE /HPF Urine Crystals NONE /LPF Urine Bacteria NEGATIVE /HPF Urine Casts NONE /LPF Urine Mucus NEGATIVE /LPF Urine Culture Indicated NO Urine Test NEGATIVE NEGATIVE White Blood Count 14.5 H 4.3-11.0 10^3/uL Red Blood Count 4.31 L 4.35-5.85 10^6/uL Hemoglobin 12.9 11.5-16.0 G/DL Hematocrit 40 35-52 % Mean Corpuscular Volume 92 80-99 FL Mean Corpuscular Hemoglobin 30 25-34 PG Mean Corpuscular Hemoglobin Concent 33 32-36 G/DL Red Cell Distribution Width 16.1 H 10.0-14.5 % Platelet Count 339 130-400 10^3/uL Mean Platelet Volume 10.7 H 7.4-10.4 FL Neutrophils (%) (Auto) 75 42-75 % Lymphocytes (%) (Auto) 16 12-44 % Monocytes (%) (Auto) 7 0-12 % Eosinophils (%) (Auto) 3 0-10 % Basophils (%) (Auto) 0 0-10 % Neutrophils # (Auto) 10.8 H 1.8-7.8 X 10^3 Lymphocytes # (Auto) 2.3 1.0-4.0 X 10^3 Monocytes # (Auto) 1.0 0.0-1.0 X 10^3 Eosinophils # (Auto) 0.4 H 0.0-0.3 10^3/uL Basophils # (Auto) 0.1 0.0-0.1 10^3/uL Neutrophils % (Manual) 74 % Lymphocytes % (Manual) 21 % Monocytes % (Manual) 5 % Eosinophils % (Manual) 0 % Basophils % (Manual) 0 % Band Neutrophils 0 % Anisocytosis SLIGHT Sodium Level 137 135-145 MMOL/L Potassium Level 3.9 3.6-5.0 MMOL/L Chloride Level 105 98-107 MMOL/L Carbon Dioxide Level 23 21-32 MMOL/L Anion Gap 9 5-14 MMOL/L Blood Urea Nitrogen 6 L 7-18 MG/DL Creatinine 0.66 0.60-1.30 MG/DL Estimat Glomerular Filtration Rate > 60 BUN/Creatinine Ratio 9 Glucose Level 82 70-105 MG/DL Calcium Level 8.9 8.5-10.1 MG/DL Total Bilirubin 0.4 0.1-1.0 MG/DL Aspartate Amino Transf (AST/SGOT) 15 5-34 U/L Alanine Aminotransferase (ALT/SGPT) 28 0-55 U/L Alkaline Phosphatase 103 40-136 U/L C-Reactive Protein High Sensitivity 6.03 H 0.00-0.50 MG/DL Total Protein 7.4 6.4-8.2 GM/DL Albumin 4.3 3.2-4.5 GM/DL (AIME MOSLEY) Micro Results Microbiology 08/15/17 Influenza Types A,B Antigen (DIMITRI) - Final, Complete (AIME MOSLEY) My Orders Orders - AIME MOSLEY Acetaminophen Tablet (Tylenol Tablet) (08/15/17 20:30) (AIME MOSLEY) Medications Given in ED Current Medications Medications Dose Ordered Sig/Franc Route Start Time Stop Time Status Last Admin Dose Admin Sodium Chloride 1,000 ml @ 0 mls/hr Q0M ONCE IV 08/15/17 17:52 08/15/17 17:54 DC 08/15/17 18:24 1,000 MLS/HR (AIME MOSLEY) Vital Signs/I&O Vital Sign - Last 12Hours 08/15/17 08/15/17 17:08 17:46 Temp 100.3 100.3 Pulse 105 Resp 20 B/P (MAP) 113/52 (72) Pulse Ox 100 (AIME MOSLEY) Vital Signs/I&O Capillary Refill : Less Than 3 Seconds (TASHA BUSTOS MD) Blood Pressure Mean: 72 Progress Note : Progress Note Seen and evaluated. Ibuprofen 800 mg by mouth for mild fever. Due to persistence of symptoms, IV, labs, UA, normal saline 1 L bolus ordered. We will check CT of the head and chest x-ray. Care transferred to Dr. Mosley at 1805. (TASHA BUSTOS MD) Progress Note #1: Time: 20:28 Progress Note #2: Time: 20:28 Progress Note Assume care of the patient at shift change from Dr. Bustos. Reviewed records and labs. The white blood cell count does appear to be going down is no left shift. It seems that outpatient they're treating her for possible infectious colitis with Cipro and Flagyl. However some of her symptoms of body ache chills could be from viral also she is endorsing what looks to be sinusitis. We have decided to do a CT of her head rule out dangerous pathology as well as it would gets a chance to look at her sinuses. Indeed there is ethmoid mucosal thickening indicating sinus infection so we will switch up her ciprofloxacin 2 level Floxin which would cover her sinusitis and let her continue her antibiotics. The trend of white blood cell going down is encouraging. She says the Motrin has not helped much however we'll give her a gram of Tylenol to go with this. The plan will be to switch up the Cipro for Levaquin for her tender sinuses and headache. We'll renew some Phenergan and give her a couple hydrocodone for breakthrough pain to get her through the weekend and if her pain in her head is not improving in the next 3 days she is to follow-up with her primary care physician. She is in agreement with this plan. (AIME MOSLEY) Diagnostic Imaging Diagonstic Imaging: Xray Plain Films/CT/US/NM/MRI: chest Comments NAME: HARI JAY R MED REC#: [id number] PHYSICIAN: TASHA BUSTOS MD CC: RUTH CARBAJAL MD; TASHA BUSTOS MD Page 1 of 1 RADIOLOGY REPORT VIA [facility]. [place], [place] CC: RUTH CARBAJAL MD; TASHA BUSTOS MD Page 1 of 1 RADIOLOGY REPORT NAME: HARI JAY R [facility] REC#: [id number] PT STATUS: REG ER : 1980 PHYSICIAN: TASHA BUSTOS MD ADMIT DATE: 08/15/17/ER Signed Date of Exam: 08/15/17 CHEST PA/LAT (2 VIEW) INDICATION: Fever, sore throat, coughing, nasal congestion since morning. COMPARISON STUDY: Chest from 08/06. FINDINGS: Frontal and lateral views of the chest demonstrates lungs to be clear. The heart, mediastinum, pulmonary vascularity and visualized bony thorax are normal. IMPRESSION: Normal chest. Dictated by: Dictated on workstation # [id number] Dict: 08/15/171850 Trans: 08/15/171902 Interpreted by: RUTH CARBAJAL MD Electronically signed by: RUTH CARBAJAL MD 08/15/171902 Reviewed: Reviewed by Me Diagonstic Imaging: CT Plain Films/CT/US/NM/MRI: head Comments NAME: HARI JAY R MED REC#: [id number] PHYSICIAN: TASHA BUSTOS MD CC: RUTH CARBAJAL MD; TASHA BUSTOS MD Page 1 of 1 RADIOLOGY REPORT VIA [place], [place] CC: RUTH CARBAJAL MD; TASHA BUSTOS MD Page 1 of 1 RADIOLOGY REPORT NAME: HARI JAY [facility] REC#: [id number] PT STATUS: REG ER : 1980 PHYSICIAN: TASHA BUSTOS MD ADMIT DATE: 08/15/17/ER Signed Date of Exam: 08/15/17 CT HEAD WO PROCEDURE: CT head without contrast. TECHNIQUE: Multiple contiguous axial images were obtained through the brain without the use of intravenous contrast. INDICATION: Complaining of fever, sore throat, cough and nasal congestion since this morning. FINDINGS: Noncontrast CT scanning of the head demonstrates no mass effect, midline shift, hemorrhage, or extra-axial fluid collections. The hinton-white matter differentiation is normal. The ventricles, cortical sulci, and basilar cisterns appear normal. The mastoid air cells are clear. There is some mucosal thickening of the ethmoid sinuses. The maxillary sinuses are not included. IMPRESSION: 1. Normal intracranial contents. 2. There is mild mucosal thickening of the ethmoid sinuses. The maxillary sinuses are not included. Dictated by: Dictated on workstation # [id number] Dict: 08/15/17 1838 Trans: 08/15/171902 Interpreted by: RUTH CARBAJAL MD Electronically signed by: RUTH CARBAJAL MD 08/15/171902 Reviewed: Reviewed by Me (AIME MOSLEY) Departure Impression Impression: Primary Impression: Sinusitis Qualified Codes: J01.20 - Acute ethmoidal sinusitis, unspecified Additional Impressions: Headache Qualified Codes: G44.201 - Tension-type headache, unspecified, intractable Colitis Disposition: 01 HOME, SELF-CARE Condition: Stable Departure-Patient Inst. Decision time for Depature: 20:43 (AIME MOSLEY) Referrals: [facility] (PCP/Family) Primary Care Physician Patient Instructions: Sinusitis, Adult (DC) Add. Discharge Instructions: Drink lots of fluids. Use sinus nasal wash. You can also use topical nasal steroids such as Flonase. Stop taking the ciprofloxacin. Start taking the Levaquin until completion. Finished taking the Flagyl as prescribed. If your headache has not improved by Friday then you should follow up with your primary care physician next week for further evaluation of your sinus headache. Use the promethazine every 6 hours as needed for nausea especially nausea accompanied with your headache. You can use the hydrocodone one tablet every 6 hours as needed for breakthrough pain if the Tylenol Motrin and promethazine are not treating your headache and you cannot function. All discharge instructions reviewed with patient and/or family. Voiced understanding. Scripts Levofloxacin (Levaquin) 750 Mg Tablet 750 MG PO DAILY for 10 Days, #10 TAB 0 Refills Prov: AIME MOSLEY 08/15/17 Hydrocodone/Acetaminophen (Hydrocodone-Acetamin 5-325 mg) 1 Each Tablet 1 EACH PO Q6H Y for BREAKTHROUGH PAIN, #12 TAB 0 Refills Prov: AIME MOSLEY 08/15/17 Promethazine HCl (Promethazine Tablet) 25 Mg Tablet 25 MG PO Q6H Y for NAUSEA/VOMITING, #20 TAB 0 Refills Prov: AIME MOSLEY 08/15/17 Copy Copies To 1: ONI AM TIMOTHY D MD Aug 15, 2017 18:04 AIME MOSLEY Aug 15, 2017 20:32
[2017-08-15 18:08] LABS: BACTERIA,URINE NEGATIVE /HPF; SQUAMOUS EPITHELIAL CELL,UR RARE /HPF
[2017-08-15 18:23] LABS: BASOPHILS # (AUTO) 0.1 10^3/uL (0.0-0.1); BASOPHILS % (AUTO) 0 % (0-10); EOSINOPHILS # (AUTO) 0.4 10^3/uL (0.0-0.3); EOSINOPHILS % (AUTO) 3 % (0-10); HEMATOCRIT 40 % (35-52); HEMOGLOBIN 12.9 G/DL (11.5-16.0); LYMPHOCYTES # (AUTO) 2.3 X 10^3 (1.0-4.0); LYMPHOCYTES % (AUTO) 16 % (12-44); MEAN CORPUSCULAR HEMOGLOBIN 30 PG (25-34); MEAN CORPUSCULAR HGB CONC 33 G/DL (32-36); MEAN CORPUSCULAR VOLUME 92 FL (80-99); MEAN PLATELET VOLUME 10.7 FL (7.4-10.4); MONOCYTES % (AUTO) 7 % (0-12); NEUTROPHILS # (AUTO) 10.8 X 10^3 (1.8-7.8); NEUTROPHILS % (AUTO) 75 % (42-75); PLATELET COUNT 339 10^3/uL (130-400); RED BLOOD COUNT 4.31 10^6/uL (4.35-5.85); RED CELL DISTRIBUTION WIDTH 16.1 % (10.0-14.5); WHITE BLOOD COUNT 14.5 10^3/uL (4.3-11.0)
[2017-08-15 18:43] LABS: ALANINE AMINOTRANSFERASE 28 U/L (0-55); ALBUMIN 4.3 GM/DL (3.2-4.5); ALKALINE PHOSPHATASE 103 U/L (40-136); BILIRUBIN,TOTAL 0.4 MG/DL (0.1-1.0); BUN/CREATININE RATIO 9; CALCIUM 8.9 MG/DL (8.5-10.1); CARBON DIOXIDE 23 MMOL/L (21-32); CHLORIDE 105 MMOL/L (98-107); CREATININE SERUM 0.66 MG/DL (0.60-1.30); GFR ESTIMATED > 60; GLUCOSE 82 MG/DL (70-105); POTASSIUM 3.9 MMOL/L (3.6-5.0); SODIUM 137 MMOL/L (135-145); TOTAL PROTEIN 7.4 GM/DL (6.4-8.2)
--- NOTE | 2017-08-15 18:43 | Diagnostic Imaging Report ---
PROCEDURE: CT head without contrast. TECHNIQUE: Multiple contiguous axial images were obtained through the brain without the use of intravenous contrast. INDICATION: Complaining of fever, sore throat, cough and nasal congestion since this morning. FINDINGS: Noncontrast CT scanning of the head demonstrates no mass effect, midline shift, hemorrhage, or extra-axial fluid collections. The hinton-white matter differentiation is normal. The ventricles, cortical sulci, and basilar cisterns appear normal. The mastoid air cells are clear. There is some mucosal thickening of the ethmoid sinuses. The maxillary sinuses are not included. IMPRESSION: 1. Normal intracranial contents. 2. There is mild mucosal thickening of the ethmoid sinuses. The maxillary sinuses are not included. Dictated by: Dictated on workstation # [id number]
[2017-08-15 18:45] LABS: ANISOCYTOSIS SLIGHT; BAND NEUTROPHILS 0 %; BASOPHILS % (MANUAL) 0 %; EOSINOPHILS % (MANUAL) 0 %; LYMPHOCYTES % (MANUAL) 21 %; MONOCYTES % (MANUAL) 5 %; NEUTROPHILS % (MANUAL) 74 %
--- NOTE | 2017-08-15 19:00 | Diagnostic Imaging Report ---
INDICATION: Fever, sore throat, coughing, nasal congestion since morning. COMPARISON STUDY: Chest from 08/06. FINDINGS: Frontal and lateral views of the chest demonstrates lungs to be clear. The heart, mediastinum, pulmonary vascularity and visualized bony thorax are normal. IMPRESSION: Normal chest. Dictated by: Dictated on workstation # [id number]
[2017-08-15] MEDS ORDERED: ACETAMINOPHEN 500 MG TAB (TYLENOL) PO ONE (20:30)
[2017-08-15] MEDS ORDERED: HYDR-3812 PO (20:47)
[2017-08-15] MEDS ORDERED: LEVO750T9 PO (20:47)
[2017-08-15] MEDS ORDERED: PROM25TA14 PO (20:47)
[2017-08-15] MEDS ORDERED: RX-ONDANSETRON 4 MG ODT (ZOFRAN) PPK #4 PO STA (20:49)
[2017-08-15] MEDS ORDERED: RX-HYDROCODONE/APAP 5/325 MG #4 TAB PK PO PRN (21:00)
[2017-08-15 21:04] VITALS: BP 100/45
--- OUTSIDE RECORDS SUMMARY | 2017-08-17 06:08 | XMS REPORT | Continuity of Care Document ---
Author Author Formerly [facility] Address Unknown Phone Unavailable Allergies Active Description Code Type Severity Reaction Onset Reported/Identified Relationship to Patient Clinical Status Yes No Known Drug Allergies [id number] Drug Allergy Mild N/A 08/05/2017 Medications There is no data. Problems Date [...] MA DOA K 729.5 ARM PAIN 07/22/2012 ONI MA [...] ONI K V25.12 IUD REMOVAL 11/04/2012 DEYA NURSE PRACTITIONER, KASSIE A V25.01 CONTRACEPTION - ORAL CONTRACEPTION 11/04/2012 DEYA NURSE PRACTITIONER, KASSIE A V25.12 IUD REMOVAL 11/04/2012 MA [...] DO, ONI K 784.0 HEADACHE 03/16/2013 DEYA NURSE PRACTITIONER, KASSIE A 728.85 SPASM OF MUSCLE 03/16/2013 DEYA NURSE PRACTITIONER, KASSIE A 784.0 HEADACHE 03/16/2013 MA DO, ONI K 728.85 SPASM OF MUSCLE 03/16/2013 MA DO, ONI K 784.0 HEADACHE 03/24/2013 MA DO, ONI K 780.79 fatigue 03/24/2013 MA DO, ONI K 799.22 IRRITABILITY 03/24/2013 MA DO, ONI K 780.79 fatigue 03/24/2013 MA DO, ONI K 799.22 IRRITABILITY 03/24/2013 DEYA NURSE PRACTITIONER, KASSIE A 780.79 fatigue 03/24/2013 KASSIE FALK [...] CAO MD Ot R20.2 PARESTHESIA OF SKIN 08/07/2017 AIME PEREZ MD Ot A08.4 VIRAL INTESTINAL INFECTION, UNSPECIFIED 08/07/2017 AIME PEREZ MD Ot F17.210 NICOTINE DEPENDENCE, CIGARETTES, UNCOMPL 08/07/2017 AIME PEREZ MD Ot G43.909 MIGRAINE, UNSP, NOT INTRACTABLE, WITHOUT 08/07/2017 AIME PEREZ MD Ot R10.30 LOWER ABDOMINAL PAIN, UNSPECIFIED 08/07/2017 AIME PEREZ MD Ot Z32.02 ENCOUNTER FOR TEST, RESULT NEG 08/07/2017 AIME PEREZ MD Ot 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 08/07/2017 AIME PEREZ MD Ot Z87.59 PERSONAL HISTORY OF COMP OF PREG, CHLDBR 08/07/2017 AIME PEREZ MD Ot A08.4 VIRAL INTESTINAL INFECTION, UNSPECIFIED 08/07/2017 AIME PEREZ MD Ot F17.210 NICOTINE DEPENDENCE, CIGARETTES, UNCOMPL 08/07/2017 AIME PEREZ MD Ot G43.909 MIGRAINE, UNSP, NOT INTRACTABLE, WITHOUT 08/07/2017 AIME EPREZ MD Ot R10.30 LOWER ABDOMINAL PAIN, UNSPECIFIED 08/07/2017 AIME PEREZ MD Ot Z32.02 ENCOUNTER FOR TEST, RESULT NEG 08/07/2017 AIME PEREZ MD Ot 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 08/07/2017 AIME PEREZ MD Ot Z87.59 PERSONAL HISTORY OF COMP OF PREG, CHLDBR 08/11/2017 AIME PEREZ MD Ot A08.4 VIRAL INTESTINAL INFECTION, UNSPECIFIED 08/11/2017 AIME PEREZ MD Ot F17.210 NICOTINE DEPENDENCE, CIGARETTES, UNCOMPL 08/11/2017 AIME PEREZ MD Ot G43.909 MIGRAINE, UNSP, NOT INTRACTABLE, WITHOUT 08/11/2017 AIME PEREZ MD Ot R10.30 LOWER ABDOMINAL PAIN, UNSPECIFIED 08/11/2017 AIME PEREZ MD Ot Z32.02 ENCOUNTER FOR TEST, RESULT NEG 08/11/2017 AIME PEREZ MD Ot Z79.52 SHELTER (CURRENT) USE OF SYSTEMIC STER 08/11/2017 AIME PEREZ MD Ot Z87.59 PERSONAL HISTORY OF COMP OF PREG, CHLDBR 08/11/2017 AIME PEREZ MD Ot F17.210 NICOTINE DEPENDENCE, CIGARETTES, UNCOMPL 08/11/2017 AIME PEREZ MD Ot G43.909 MIGRAINE, UNSP, NOT INTRACTABLE, WITHOUT 08/11/2017 AIME PEREZ MD Ot M94.0 CHONDROCOSTAL JUNCTION SYNDROME [TIETZE] 08/11/2017 AIME PEREZ MD Ot R07.81 PLEURODYNIA 08/11/2017 AIME PEREZ MD Ot R10.12 LEFT UPPER QUADRANT PAIN 08/11/2017 AIME PEREZ MD Ot R10.13 EPIGASTRIC PAIN 08/11/2017 AIME PEREZ MD Ot Z87.440 PERSONAL HISTORY OF URINARY (TRACT) INFE 08/11/2017 AIME PEREZ MD Ot Z87.59 PERSONAL HISTORY OF COMP OF PREG, CHLDBR 08/13/2017 AIME PEREZ MD Ot F17.210 NICOTINE DEPENDENCE, CIGARETTES, UNCOMPL 08/13/2017 AIME PEREZ MD Ot G43.909 MIGRAINE, UNSP, NOT INTRACTABLE, WITHOUT 08/13/2017 AIME PEREZ MD Ot M94.0 CHONDROCOSTAL JUNCTION SYNDROME [TIETZE] 08/13/2017 AIME PEREZ MD Ot R07.81 PLEURODYNIA 08/13/2017 AIME PEREZ MD Ot R10.12 LEFT UPPER QUADRANT PAIN 08/13/2017 AIME PEREZ MD, Ot R10.13 EPIGASTRIC PAIN 08/13/2017 AIME PEREZ MD Ot Z87.440 PERSONAL HISTORY OF URINARY (TRACT) INFE 08/13/2017 AIME PEREZ MD, Ot Z87.59 PERSONAL HISTORY OF COMP OF PREG, CHLDBR Procedures Code Description Performed By Performed On MATTHEW OBREGON 07/22/2012 92383 ANTIBODY SCREEN (order) 05/11/2013 01580 URINE TEST (IN- HOUSE) 05/11/2013 88054 UA OB DIP 05/11/2013 72255 CBC 05/11/2013 91302 TSH 05/11/2013 46043 HEP B SURFACE ANTIGEN (RML) 05/11/2013 88139 SYPHILLIS TEST 05/11/2013 [id number] ANTIBODY SCREEN (RESULT ONLY) 05/12/2013 80238 BLOOD TYPE/Rh FACTOR 05/12/2013 60096 HIV ANTIBODIES (RML) 05/12/2013 20448 RUBELLA ANTIBODY, IGG 05/12/2013 44223 CULTURE URINE 05/12/2013 Results Test Result Range Urine beta human chorionic gonadotropin (hCG) measurement - 08/05/17 21:50 Urine beta human chorionic gonadotropin (hCG) measurement NEGATIVE NEGATIVE Complete urinalysis with reflex to culture - 08/05/17 21:50 Urine color determination YELLOW NRG Urine clarity determination CLEAR NRG Urine pH measurement by test strip 6 5-9 Specific gravity of urine by test strip 1.020 1.016- 1.022 Urine protein assay by test strip, semi-quantitative NEGATIVE NEGATIVE Urine glucose detection by automated test strip NEGATIVE NEGATIVE Erythrocytes detection in urine sediment by light microscopy 2+ NEGATIVE Urine ketones detection by automated test strip NEGATIVE NEGATIVE Urine nitrite detection by test strip NEGATIVE NEGATIVE Urine total bilirubin detection by test strip NEGATIVE NEGATIVE Urine urobilinogen measurement by automated test strip (mass/volume) NORMAL NORMAL Urine leukocyte esterase detection by dipstick NEGATIVE NEGATIVE Automated urine sediment erythrocyte count by microscopy (number/high power field) [HPF] NRG Automated urine sediment leukocyte count by microscopy (number/high power field ) RARE NRG Bacteria detection in urine sediment by light microscopy TRACE NRG Squamous epithelial cells detection in urine sediment by light microscopy 10-25 NRG Crystals detection in urine sediment by light microscopy NONE NRG Casts detection in urine sediment by light microscopy NONE NRG Mucus detection in urine sediment by light microscopy NEGATIVE NRG Complete urinalysis with reflex to culture NO NRG Complete blood count (CBC) with automated white blood cell (WBC) differential - 08/05/17 22:10 Blood leukocytes automated count (number/volume) 17.0 10*3/uL 4.3-11.0 Blood erythrocytes automated count (number/volume) 3.84 10*6/uL 4.35-5.85 Venous blood hemoglobin measurement (mass/volume) 11.7 g/dL 11.5-16.0 Blood hematocrit (volume fraction) 35 % 35-52 Automated erythrocyte mean corpuscular volume 92 [foz_us] 80-99 Automated erythrocyte mean corpuscular hemoglobin (mass per erythrocyte) 31 pg 25-34 Automated erythrocyte mean corpuscular hemoglobin concentration measurement ( mass/volume) 33 g/dL 32-36 Automated erythrocyte distribution width ratio 15.3 % 10.0-14.5 Automated blood platelet count (count/volume) 327 10*3/uL 130-400 Automated blood platelet mean volume measurement 10.9 [foz_us] 7.4-10.4 Automated blood neutrophils/100 leukocytes 59 % 42-75 Automated blood lymphocytes/100 leukocytes 32 % 12-44 Blood monocytes/100 leukocytes 6 % 0-12 Automated blood eosinophils/100 leukocytes 3 % 0-10 Automated blood basophils/100 leukocytes 1 % 0-10 Blood neutrophils automated count (number/volume) 10.1 10*3 1.8-7.8 Blood lymphocytes automated count (number/volume) 5.4 10*3 1.0-4.0 Blood monocytes automated count (number/volume) 1.0 10*3 0.0-1.0 Automated eosinophil count 0.5 10*3/uL 0.0-0.3 Automated blood basophil count (count/volume) 0.1 10*3/uL 0.0-0.1 Blood manual differential performed detection - 08/05/17 22:10 Blood monocytes/100 leukocytes 0 % NRG Manual blood segmented neutrophils/100 leukocytes 59 % NRG Blood band neutrophils/100 leukocytes 0 % NRG Manual blood lymphocytes/100 leukocytes 39 % [facility] Manual eosinophils/100 leukocytes in nose 2 % [facility] Manual blood basophils/100 leukocytes 0 % [facility] Blood anisocytosis detection by light microscopy SLIGHT [facility] Comprehensive metabolic panel - 08/05/17 22:10 Serum or plasma sodium measurement (moles/volume) 138 mmol/L 135-145 Serum or plasma potassium measurement (moles/volume) 3.7 mmol/L 3.6-5.0 Serum or plasma chloride measurement (moles/volume) 108 mmol/L 98-107 Carbon dioxide 20 mmol/L 21-32 Serum or plasma anion gap determination (moles/volume) 10 mmol/L 5-14 Serum or plasma urea nitrogen measurement (mass/volume) 12 mg/dL 7-18 Serum or plasma creatinine measurement (mass/volume) 0.63 mg/dL 0.60-1.30 Serum or plasma urea nitrogen/creatinine mass ratio 19 NRG Serum or plasma creatinine measurement with calculation of estimated glomerular filtration rate > [facility] Serum or plasma glucose measurement (mass/volume) 113 mg/dL 70-105 Serum or plasma calcium measurement (mass/volume) 8.6 mg/dL 8.5-10.1 Serum or plasma total bilirubin measurement (mass/volume) 0.1 mg/dL 0.1-1.0 Serum or plasma alkaline phosphatase measurement (enzymatic activity/volume) 91 U/L 40-136 Serum or plasma aspartate aminotransferase measurement (enzymatic activity/ volume) 10 U/L 5-34 Serum or plasma alanine aminotransferase measurement (enzymatic activity/volume ) 13 U/L 0-55 Serum or plasma protein measurement (mass/volume) 6.6 g/dL 6.4-8.2 Serum or plasma albumin measurement (mass/volume) 3.9 g/dL 3.2-4.5 Lipase - 08/05/17 22:10 Lipase 24 U/L 8-78 Serum heterophile antibody titer - 08/06/17 23:00 Serum heterophile antibody titer NEGATIVE NEGATIVE Complete blood count (CBC) with automated white blood cell (WBC) differential - 08/06/17 23:00 Blood leukocytes automated count (number/volume) 16.4 10*3/uL 4.3-11.0 Blood erythrocytes automated count (number/volume) 3.95 10*6/uL 4.35-5.85 Venous blood hemoglobin measurement (mass/volume) 11.9 g/dL 11.5-16.0 Blood hematocrit (volume fraction) 37 % 35-52 Automated erythrocyte mean corpuscular volume 93 [foz_us] 80-99 Automated erythrocyte mean corpuscular hemoglobin (mass per erythrocyte) 30 pg 25-34 Automated erythrocyte mean corpuscular hemoglobin concentration measurement ( mass/volume) 32 g/dL 32-36 Automated erythrocyte distribution width ratio 15.3 % 10.0-14.5 Automated blood platelet count (count/volume) 314 10*3/uL 130-400 Automated blood platelet mean volume measurement 11.0 [foz_us] 7.4-10.4 Automated blood neutrophils/100 leukocytes 61 % 42-75 Automated blood lymphocytes/100 leukocytes 29 % 12-44 Blood monocytes/100 leukocytes 7 % 0-12 Automated blood eosinophils/100 leukocytes 3 % 0-10 Automated blood basophils/100 leukocytes 0 % 0-10 Blood neutrophils automated count (number/volume) 10.0 10*3 1.8-7.8 Blood lymphocytes automated count (number/volume) 4.8 10*3 1.0-4.0 Blood monocytes automated count (number/volume) 1.1 10*3 0.0-1.0 Automated eosinophil count 0.4 10*3/uL 0.0-0.3 Automated blood basophil count (count/volume) 0.1 10*3/uL 0.0-0.1 Blood manual differential performed detection - 08/06/17 23:00 Blood monocytes/100 leukocytes 3 % NRG Manual blood segmented neutrophils/100 leukocytes 63 % NRG Blood band neutrophils/100 leukocytes 2 % NRG Manual blood lymphocytes/100 leukocytes 31 % NRG Manual eosinophils/100 leukocytes in nose 1 % NRG Manual blood basophils/100 leukocytes 0 % NRG Comprehensive metabolic panel - 08/06/17 23:00 Serum or plasma sodium measurement (moles/volume) 141 mmol/L 135-145 Serum or plasma potassium measurement (moles/volume) 3.5 mmol/L 3.6-5.0 Serum or plasma chloride measurement (moles/volume) 110 mmol/L 98-107 Carbon dioxide 17 mmol/L 21-32 Serum or plasma anion gap determination (moles/volume) 14 mmol/L 5-14 Serum or plasma urea nitrogen measurement (mass/volume) 9 mg/dL 7-18 Serum or plasma creatinine measurement (mass/volume) 0.68 mg/dL 0.60-1.30 Serum or plasma urea nitrogen/creatinine mass ratio 13 NRG Serum or plasma creatinine measurement with calculation of estimated glomerular filtration rate > NRG Serum or plasma glucose measurement (mass/volume) 129 mg/dL 70-105 Serum or plasma calcium measurement (mass/volume) 9.0 mg/dL 8.5-10.1 Serum or plasma total bilirubin measurement (mass/volume) 0.1 mg/dL 0.1-1.0 Serum or plasma alkaline phosphatase measurement (enzymatic activity/volume) 96 U/L 40-136 Serum or plasma aspartate aminotransferase measurement (enzymatic activity/ volume) 11 U/L 5-34 Serum or plasma alanine aminotransferase measurement (enzymatic activity/volume ) 17 U/L 0-55 Serum or plasma protein measurement (mass/volume) 6.6 g/dL 6.4-8.2 Serum or plasma albumin measurement (mass/volume) 4.0 g/dL 3.2-4.5 Lipase - 08/06/17 23:00 Lipase 27 U/L 8-78 Encounters ACCT No. Visit Date/Time Discharge Status Pt. Type Provider Facility Loc./Unit Complaint [id number] 05/11/2013 10:53:00 05/11/2013 23:59:59 CLS Outpatient ONI MA DO [id number] 05/11/2013 10:53:00 05/11/2013 23:59:59 CLS Outpatient DEYA NURSE PRACTITIONER, KASSIE A [id number] 04/07/2013 09:31:00 04/07/2013 23:59:59 CLS Outpatient ONI MA DO [id number] 03/24/2013 16:34:00 03/24/2013 23:59:59 CLS Outpatient ONI MA DO [id number] 03/16/2013 18:22:00 03/16/2013 23:59:59 CLS Outpatient ONI MA DO [id number] 07/22/2012 14:13:00 07/22/2012 23:59:59 CLS Outpatient ONI MA DO [id number] 11/04/2012 11:49:00 Document Registration [id number] 08/06/2017 22:25:00 08/07/2017 00:44:00 DIS Outpatient ANA DONALD, AIME [facility] ER LEFT SIDE PAIN [id number] 08/05/2017 21:44:00 08/06/2017 00:07:00 DIS Outpatient AIME PEREZ MD Via [facility] ER ABD AND BACK PAIN, HEADACHE, NAUSEA [id number] 08/25/2016 20:56:00 08/25/2016 22:54:00 DIS Emergency AMEENA CAO MD [facility] ER CHEST PAIN [id number] 01/08/2016 02:12:00 01/08/2016 03:33:00 DIS Emergency AMEENA CAO MD [facility] ER HEADACHES, N/V [id number] 12/17/2015 22:03:00 12/17/2015 22:35:00 DIS Emergency SRIDHAR ORTIZ APRN [facility] ER DENTAL PAIN [id number] 12/05/2015 20:58:00 12/05/2015 22:51:00 DIS Emergency SRIDHAR ORTIZ APRN [facility] ER [id number] 05/15/2014 12:20:00 05/15/2014 14:26:00 DIS Emergency ZAYRA OLMSTEAD MD [facility] ER [id number] 11/25/2013 10:00:00 11/27/2013 17:53:00 DIS Inpatient [id number] 11/18/2013 11:15:00 11/18/2013 23:59:59 CLS Outpatient [id number] 11/08/2013 17:10:00 11/08/2013 18:45:00 DIS Outpatient [id number] 10/16/2013 17:21:00 10/16/2013 19:55:00 DIS Outpatient [id number] 09/14/2013 09:42:00 09/14/2013 23:59:59 CLS Outpatient [id number] 08/26/2013 17:21:00 08/26/2013 19:07:00 DIS Outpatient [id number] 08/19/2013 14:03:00 08/19/2013 23:59:59 CLS Outpatient [id number] 08/18/2013 18:23:00 08/18/2013 20:00:00 DIS Emergency [id number] 07/03/2013 02:19:00 07/03/2013 06:11:00 DIS Emergency [id number] 04/02/2013 11:33:00 04/02/2013 23:59:59 CLS Outpatient [id number] 04/01/2013 20:38:00 04/01/2013 23:11:00 DIS Emergency [id number] 11/02/2012 04:09:00 11/03/2012 14:00:00 DIS Inpatient [id number] 03/23/2015 22:43:00 Document Registration
== END 2017-08-15 21:04 | disposition home or self-care (01) ==
LOC: EDUNIT# 16:33 → ER 16:34
DX: J32.9 Chronic sinusitis, unspecified (principal); K52.9 Noninfective gastroenteritis and colitis, unspecified; G43.909 Migraine, unspecified, not intractable, without status migrainosus; F17.210 Nicotine dependence, cigarettes, uncomplicated; Z87.59 Personal history of other complications of pregnancy, childbirth and the puerperium; Z79.52 Long term (current) use of systemic steroids
CPT/HCPCS: 36415; 70450; 71046; 80053; 81000; 84703; 85007; 85027; 86141; 87804

== ENCOUNTER 2017-11-22 23:07 | Emergency (ER) | payer OTHER ==
[~2017-11-22] VITALS: Ht 154.9 cm; Wt 77.1 kg
[~2017-11-22 23:07] MED LIST changes: +HYDR-3812 PO; +LEVO750T9 PO
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
[2017-11-22] MEDS ORDERED: KETOROLAC 30 MG/ML VIAL IM ONE (23:30)
--- NOTE | 2017-11-22 23:31 | ED Lower Extremity ---
General Chief Complaint: Lower Extremity Stated Complaint: TOES TINGLE W PAIN Nursing Triage Note: BILATERAL FOOT NUMBNESS/PAIN Nursing Sepsis Screen: No Definite Risk Source: patient, other Exam Limitations: no limitations History of Present Illness Date Seen by Provider: Nov 22, 2017 Time Seen by Provider: 23:20 Initial Comments Patient presents to the ER by private conveyance with a chief complaint of one month progressively worsening pain in bilateral lower extremities with pins and needles tingling worse in her left foot than right. She does not have a history of diabetes or other neuropathy. She does have a history of low back pain. She' s not having any low back pain presently. She does have a migraine headache however and when she gets her migraines or tingling in her feet are worse. She does have plans to follow-up with her primary care Dr. Yuli Landa at the clinic Friday in 2 days. She says however she cannot make it with the pain. She has been taking Tylenol but it does not help much. She's had no fevers, chills, nausea, vomiting. Her last missed her period was 10/30/17 approximately 3 weeks ago. She's had no trauma to her feet, legs or back, loss of control of her bowel or bladder, weakness, numbness or muscle wasting. Allergies and Home Medications Allergies Coded Allergies: No Known Drug Allergies (Unverified , 08/15/17) Home Medications Cyclobenzaprine HCl 10 Mg Tablet, 10 MG PO TID PRN for SPASMS Prescribed by: AMEENA TIWARI on 01/08/16 0325 Hydrocodone/Acetaminophen 1 Each Tablet, 1 EACH PO Q6H PRN for BREAKTHROUGH PAIN Prescribed by: AIME PEREZ on 08/15/17 2047 Ibuprofen 800 Mg Tablet, 1 TAB PO UD PRN for PAIN, (Reported) Ondansetron 4 Mg Tab.rapdis, 4 MG PO Q6H PRN for NAUSEA/VOMITING Prescribed by: AIME PEREZ on 08/05/17 2359 Prednisone 20 Mg Tab, 20 MG PO DAILY Prescribed by: AMEENA TIWARI on 08/25/16 2245 Prednisone 20 Mg Tab, 20 MG PO BID Prescribed by: AIME PEREZ on 08/07/17 0020 Promethazine HCl 25 Mg Tablet, 25 MG PO Q6H PRN for NAUSEA/VOMITING Prescribed by: AIME PEREZ on 08/07/17 0020 Promethazine HCl 25 Mg Tablet, 25 MG PO Q6H PRN for NAUSEA/VOMITING Prescribed by: AIME PEREZ on 08/15/172046 Patient Home Medication List Home Medication List Reviewed: Yes Constitutional: No chills, No diaphoresis EENTM: No blurred vision, No double vision, No eye pain Respiratory: No cough, No short of breath Cardiovascular: No chest pain, No edema Gastrointestinal: No abdominal pain, No constipation, No nausea Genitourinary: No discharge, No dysuria Past Tnqezmx-Kezuqa-Xfvnsd Hx Patient Social History Alcohol Use: Denies Use Recreational Drug Use: No Smoking Status: Current Everyday Smoker Type Used: Cigarettes 2nd Hand Smoke Exposure: No Recent Foreign Travel: No Contact w/Someone Who Travel: No Recent Infectious Disease Expo: No Recent Hopitalizations: No Immunizations Up To Date Tetanus Booster (TDap): Unknown Seasonal Allergies Seasonal Allergies: No Past Medical History Surgeries: Yes (5 C-SECTIONS) Section Respiratory: No Cardiac: No Neurological: Yes Headaches /Migraines : No Reproductive Disorders: No Female Reproductive Disorders: Denies Sexually Transmitted Disease: No Genitourinary: Yes UTI-Chronic Gastrointestinal: No Musculoskeletal: Yes Arthritis, Chronic Back Pain Endocrine: No HEENT: No Cancer: No Psychosocial: No Integumentary: Yes (Chronic dermatitis of the hands) Blood Disorders: No Adverse Reaction/Blood Tranf: No Family Medical History Family history: Hypertension 19 MOTHER No Pertinent Family Hx Physical Exam Vital Signs Capillary Refill : Less Than 3 Seconds General Appearance: WD/WN, no apparent distress Neck: non-tender, full range of motion, normal inspection Cardiovascular: normal peripheral pulses, regular rate, rhythm, other (dorsal pedal and posterior tibial pulses are 2 out of 4 bilateral symmetric.) Respiratory: no respiratory distress, no accessory muscle use Hips: bilateral hip non-tender, bilateral hip normal inspection, bilateral hip normal range of motion Legs: bilateral leg non-tender, bilateral leg normal inspection, bilateral leg normal range of motion Knees: bilateral knee non-tender, bilateral knee normal inspection, bilateral knee normal range of motion, bilateral knee no evidence of injury, bilateral knee other (anterior posterior drawer test negative. Her collateral medial and lateral ligaments are without laxity, pain. There is no crepitus in the knee joint.) Ankles: bilateral ankle non-tender, bilateral ankle normal inspection, bilateral ankle normal range of motion, bilateral ankle no evidence of injury Feet: bilateral foot non-tender, bilateral foot normal inspection, bilateral foot normal range of motion, bilateral foot no evidence of injury Reflexes: 2+ knee (R), 2+ knee (L) Neurologic/Tendon: normal motor functions, normal tendon functions, responds to pain, no evidence tendon injury Neurologic/Psychiatric: no motor/sensory deficits, alert, oriented x 3 Skin: normal color, warm/dry Progress/Results/Core Measures Results/Orders My Orders Orders - AIME PEREZ Ketorolac Injection (Toradol Injection) (11/22/17 23:30) Blood Pressure Mean: 86 Progress Progress Note : Time: 23:31 Progress Note We'll recommend NSAIDs and Tylenol and follow-up with her primary care provider for what sounds like neuropathic pain. The a neuropathy from compression of her low back radiculopathy versus a pain processing syndrome. Departure Impression Primary Impression: Neuropathic pain of ankle Qualified Codes: G57.92 - Unspecified mononeuropathy of left lower limb Disposition: HOME, SELF-CARE Condition: Stable Departure-Patient Inst. Decision time for Depature: 23:32 Referrals: [facility] [place] (PCP/Family) Primary Care Physician Patient Instructions: Neuropathic Pain Add. Discharge Instructions: Keep your follow-up appointment with your primary care provider to get appropriate workup for causes of neuropathic pain. Start the NSAIDs on a scheduled basis 2 capsules of Naprosyn twice daily. You can also use Tylenol 1000 mg every 8 hours as needed for breakthrough pain. You can use Capsaicin oil or other creams such as icy hot to help alleviate the sensation of pins and needles. All discharge instructions reviewed with patient and/or family. Voiced understanding. Copy Copies To 1: ONI MA TITUS J Nov 22, 2017 23:31
[2017-11-22 23:39] VITALS: BP 124/68
== END 2017-11-22 23:39 | disposition home or self-care (01) ==
LOC: EDUNIT# 23:07 → ER 23:10
DX: G57.93 Unspecified mononeuropathy of bilateral lower limbs (principal); G43.909 Migraine, unspecified, not intractable, without status migrainosus; F17.210 Nicotine dependence, cigarettes, uncomplicated; Z79.52 Long term (current) use of systemic steroids; Z87.2 Personal history of diseases of the skin and subcutaneous tissue; Z87.59 Personal history of other complications of pregnancy, childbirth and the puerperium
CPT/HCPCS: 96372; 99284

== ENCOUNTER 2018-03-08 22:30 | Emergency (ER) | payer OTHER ==
[~2018-03-08] VITALS: Ht 154.9 cm; Wt 77.1 kg
--- OUTSIDE RECORDS SUMMARY | 2018-03-08 22:34 | XMS REPORT ---
Author Author NIKI WILKINS Organization [facility] Address [address] [place] [address] Care Team Providers Care Reception Specialist Name Role Phone WILKINSNIKI Monson Unavailable PROBLEMS Type Condition ICD9-CM Code PBV31-RD Code Onset Dates Condition Status SNOMED Code Problem Bilateral low back pain without sciatica M54.5 Active 474011697 Problem Leukocytosis, unspecified type D72.829 Active 134292076 Problem Amenorrhea N91.2 Active 97405399 Problem Muscle spasm of back M62.830 Active 264714365 Problem Other obesity due to excess calories E66.09 Active 274894055 Problem Other chronic pain G89.29 Active 78661932 Problem Paresthesia of skin R20.2 Active 34536517 Problem Body mass index (BMI) of 36.0-36.9 in adult Z68.36 Active 450764638 Problem Lumbago with sciatica, right side M54.41 Active 405791699 Problem Lumbago with sciatica, left side M54.42 Active 685226521 ALLERGIES No Known Allergies ENCOUNTERS Encounter Location Date Diagnosis [facility] [id number] [place] [address] 33211- 3621 Dec, [facility] [id number] [place] [address] 49018- 1589 Nov, Lumbago with sciatica, right side M54.41 ; Lumbago with sciatica, left side M54.42 ; Other chronic pain G89.29 ; Paresthesia of skin R20.2 ; Pain in unspecified limb M79.609 ; Other obesity due to excess calories E66.09 and Body mass index (BMI) of 36.0-36.9 in adult Z68.36 [facility] [id number] [place] [address] 32662 -2376 Aug, Abdominal pain R10.9 and Leukocytosis, unspecified type D72.829 [facility] [id number] [place] [address] 15590 -4468 Jul, 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 [facility] [id number] [place] [address] 91433 -[phone] 08 Jul, 2017 Amenorrhea N91.2 and Abdominal pain R10.9 [facility] [id number] [place] [address] 02591- 7485 Aug, [facility] [id number] [place] [address] 19619- 8653 May, [facility] [id number] [place] [address] [id number] Feb, Dental examination Z01.20 [facility] [id number] [place] [address] [id number] Jan, Dental examination Z01.20 [facility] [address] [id number] [place] [address] [id number] Jan, Dental examination Z01.20 [facility] [id number] [place] [address] [id number] Dec, Dental examination Z01.20 [facility] [id number] [place] [address] 44578 -7152 Dec, Dental caries, unspecified K02.9 [facility] [id number] [place] [address] [id number] Nov, Dental examination Z01.20 [facility] [id number] [place] [address] 86464- 0757 Jun, Bilateral low back pain without sciatica M54.5 [facility] [id number] [place] [address] 03322- 2131 Jun, [facility] [id number] [place] [address] 41408- 3531 Jun, Bilateral low back pain without sciatica M54.5 and Muscle spasm of back M62.830 [facility] [address] [id number] [phone] Jan, Dental examination V72.2 [facility] [address] [id number] [address]89 Sep, [facility] [address] [facility] [id number] [place] [address] 48470- 7322 Sep, [facility] [address] [facility] [id number] [place] [address] 15003- 1044 Jul, [facility] [id number] [place] [address] 05958- 5352 Jul, [facility] [id number] [place] [address] 76907- 1596 Nov, [facility] [id number] [place] [address] 05929- 3483 Nov, [facility] [address] [facility] [id number] [address] 7691 Nov, [facility] [id number] [place] [address] 30516- 7719 Nov, [facility] [id number] [address] 8001 Nov, [facility] [address] [address] 1690 Nov, [facility] [address] [facility] [id number] 7916 May, [facility] [id number] [place] [address] [phone]- 4106 May, [facility] [address] [id number] 7986 May, [facility] [id number] [address] 4527 Mar, [facility] [address] [address]- 2494 Mar, [facility] [address] 2463 Mar, [facility] [address] [id number] 1946 Mar, [facility] [id number] [place] [address] 979038- 9303 Mar, [facility] [id number] [place] [address] 949882- 7211 Nov, [facility] [id number] [place] [address] 98777- 3429 Nov, [facility] [id number] [place] [address] 30057- 0669 October, [facility] [address] [address] 2921 October, [facility] [id number] [place] [address] 26291- 1310 Sep, [facility] [address] [address] 4836 Jul, [facility] [address] [address]- 9289 Jul, IMMUNIZATIONS No Known Immunizations SOCIAL HISTORY Never Assessed REASON FOR VISIT toes numb for one month, pain shoots into her knees, c/o tingling/numbness on left side/headache-[place], ER on Friday evening for pain. PLAN OF CARE Activity Details Follow Up prn Reason:est care VITAL SIGNS Height 60 in 2017-11-24 Weight 179.8 lbs 2017-11-24 Temperature 98.2 degrees Fahrenheit 2017-11-24 Heart Rate 84 bpm 2017-11-24 Respiratory Rate 20 2017-11-24 BMI 35.11 kg/m2 2017-11-24 Blood pressure systolic 122 mmHg 2017-11-24 Blood pressure diastolic 68 mmHg 2017-11-24 MEDICATIONS Medication Instructions Dosage Frequency Start Date End Date Duration Status Excedrin Migraine 250-250-65 MG Orally every 6 hrs 2 tablets as needed 6h Active Naproxen 500 MG Orally every 12 hrs 1 tablet as needed 12h Active Flexeril 10 MG Orally 3 times a day 1 tablet 8h Active PredniSONE 20 mg Orally Once a day 2 tablet 24h Nov, Nov, 05 days Active Fioricet 50-300-40 MG Orally every 6 hrs 1 capsule as needed 6h Jul, Not-Taking Gabapentin 300 MG Orally Once a day 1 capsule at bedtime 24h Nov, 30 day(s) Active RESULTS No Results PROCEDURES Procedure Date Ordered Result Body Site COMPLETE CBC W/AUTO DIFF WBC November 24, 2017 COMPREHEN METABOLIC PANEL November 24, 2017 VENIPUNCT, ROUTINE* November 24, 2017 LIPID PANEL November 24, 2017 ASSAY THYROID STIM HORMONE November 24, 2017 VITAMIN B-12 November 24, 2017 ASSAY OF VITAMIN D November 24, 2017 INSTRUCTIONS MEDICATIONS ADMINISTERED No Known Medications MEDICAL (GENERAL) HISTORY Type Description Date Surgical History sectionx5 Hospitalization History Kidney infection
--- OUTSIDE RECORDS SUMMARY | 2018-03-08 22:34 | XMS REPORT ---
Author Author NIKI WILKINS Organization [facility] Address [address] [place] [address] Care Team Providers Care Felt Finishing Supervisor Name Role Phone WILKINSNIKI Monson Unavailable PROBLEMS Type Condition ICD9-CM Code GRD90-HF Code Onset Dates Condition Status SNOMED Code Problem Bilateral low back pain without sciatica M54.5 Active 276101406 Problem Leukocytosis, unspecified type D72.829 Active 783636099 Problem Amenorrhea N91.2 Active 74523811 Problem Muscle spasm of back M62.830 Active 118152786 Problem Other obesity due to excess calories E66.09 Active 388529209 Problem Other chronic pain G89.29 Active 34517438 Problem Paresthesia of skin R20.2 Active 87575584 Problem Body mass index (BMI) of 36.0-36.9 in adult Z68.36 Active 827867976 Problem Lumbago with sciatica, right side M54.41 Active 027898145 Problem Lumbago with sciatica, left side M54.42 Active 926621221 ALLERGIES No Information ENCOUNTERS Encounter Location Date Diagnosis [facility] [id number] [place] [address] 51566- 4540 Dec, [facility] [id number] [place] [address] 33341- 8870 Nov, Lumbago with sciatica, right side M54.41 ; Lumbago with sciatica, left side M54.42 ; Other chronic pain G89.29 ; Paresthesia of skin R20.2 ; Pain in unspecified limb M79.609 ; Other obesity due to excess calories E66.09 and Body mass index (BMI) of 36.0-36.9 in adult Z68.36 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 [id number] [place] [address] 30233 -2523 08 Jul, 2017 Amenorrhea N91.2 and Abdominal pain R10.9 [facility] [id number] [place] [address] 86339- 7204 14 Aug, 2016 [facility] [id number] [place] [address] 56095- 8570 May, [facility] [id number] [place] [address] [phone] Feb, Dental examination Z01.20 [facility] [id number] [place] [address] [id number] Jan, Dental examination Z01.20 [facility] [id number] [place] [address] [id number] Jan, Dental examination Z01.20 [facility] [id number] [place] [address] [id number] Dec, Dental examination Z01.20 [facility] [address] [address] -[address] Dec, Dental caries, unspecified K02.9 [facility] [id number] [place] [address] [id number] Nov, Dental examination Z01.20 [facility] [id number] [place] [address] 91705- 3363 Jun, Bilateral low back pain without sciatica M54.5 [facility] [id number] [place] [address] 45908- 7775 Jun, [facility] [id number] [place] [address] 78987- 5429 Jun, Bilateral low back pain without sciatica M54.5 and Muscle spasm of back M62.830 [facility] [address] [id number] [id number] Jan, Dental examination V72.2 [facility] [address] [address]- 3982 Sep, [facility] [id number] [place] [address] 41634- 4694 Sep, [facility] [id number] [place] [address] 89636- 7593 Jul, [facility] [id number] [place] [address] 07847- 6566 Jul, [facility] [id number] [place] [address] 65945- 8639 Nov, [facility] [id number] [place] [address] 15339- 1649 Nov, [facility] [id number] [place] [address] 86480- 2714 Nov, [facility] [id number] [place] [address] 08546- 7064 Nov, [facility] [address], [place] [address]- 8350 Nov, [facility] [address], [place] [address]- 6200 Nov, [facility] [address] 3265 May, [facility] [id number] [place] [address] 195502- 5786 May, [facility] [address]- 1225 May, [facility] [id number] [place] [address] 50360- 7391 Mar, [facility] [address], [place] [address]- 2793 Mar, [facility] [address], [place] [address]- 9643 Mar, [facility] [address], [place] [address]- 4876 Mar, [facility] [id number] [place] [address] 46819- 0693 Mar, [facility] [id number] [place] [address] 81031- 5001 Nov, [facility] [id number] [place] [address] 96525- 2016 Nov, [facility] [id number] [place] [address] 11077- 4907 October, [facility] [address], [place] [address]- 3462 October, [facility] [address], [place] [address]- 0905 Sep, [facility] [address], [place] [address]- 4561 Jul, [facility] [address], [place] [address]- 0043 Jul, IMMUNIZATIONS No Known Immunizations SOCIAL HISTORY Never Assessed REASON FOR VISIT continued pain PLAN OF CARE VITAL SIGNS MEDICATIONS Unknown Medications RESULTS No Results PROCEDURES No Known procedures INSTRUCTIONS MEDICATIONS ADMINISTERED No Known Medications MEDICAL (GENERAL) HISTORY Type Description Date Surgical History sectionx5 Hospitalization History Kidney infection
--- OUTSIDE RECORDS SUMMARY | 2018-03-08 22:34 | XMS REPORT ---
Author Author SAMUEL ANNE [facility] Address [address] [place] [address] Care Team Providers Care Pin Sorter And Bagger Name Role Phone SAMUEL ANNE Unavailable PROBLEMS Type Condition ICD9-CM Code AIY39-XC Code Onset Dates Condition Status SNOMED Code Problem Bilateral low back pain without sciatica M54.5 Active 319145549 Problem Leukocytosis, unspecified type D72.829 Active 144675191 Problem Amenorrhea N91.2 Active 74507131 Problem Muscle spasm of back M62.830 Active 294250824 Problem Other obesity due to excess calories E66.09 Active 226819779 Problem Other chronic pain G89.29 Active 48469890 Problem Paresthesia of skin R20.2 Active 54559344 Problem Body mass index (BMI) of 36.0-36.9 in adult Z68.36 Active 733649715 Problem Lumbago with sciatica, right side M54.41 Active 902347625 Problem Lumbago with sciatica, left side M54.42 Active 590037539 ALLERGIES No Known Allergies ENCOUNTERS Encounter Location Date Diagnosis [facility] [id number] [place] [address] 48308- 1625 Dec, [facility] [id number] [place] [address] 59015- 9868 Dec, [facility] [id number] [place] [address] 58135- 8777 Nov, Lumbago with sciatica, right side M54.41 ; Lumbago with sciatica, left side M54.42 ; Other chronic pain G89.29 ; Paresthesia of skin R20.2 ; Pain in unspecified limb M79.609 ; Other obesity due to excess calories E66.09 and Body mass index (BMI) of 36.0-36.9 in adult Z68.36 [facility] [address] [place] [address] 93172 -1055 Aug, Abdominal pain R10.9 and Leukocytosis, unspecified type D72.829 [facility] [id number] [place] [address] 41336 -0852 20 Jul, 2017 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 [facility] [id number] [place] [address] 54188 -8978 08 Jul, 2017 Amenorrhea N91.2 and Abdominal pain R10.9 [place] [id number] [place] [address] 76116- 4016 Aug, [facility] [id number] [place] [address] 49787- 6028 May, [facility] [id number] [place] [address] [phone] Feb, Dental examination Z01.20 [facility] [id number] [place] [address] [phone] Jan, Dental examination Z01.20 [facility] [id number] [place] [address] [phone] Jan, Dental examination Z01.20 [facility] [id number] [place] [address] [id number] Dec, Dental examination Z01.20 [facility] [address] [place] [address] 62786 -2175 Dec, Dental caries, unspecified K02.9 [facility] [id number] [place] [address] [phone] Nov, Dental examination Z01.20 [facility] [id number] [place] [address] 45546- 6117 Jun, Bilateral low back pain without sciatica M54.5 [facility] [id number] [place] [address] 91406- 8772 Jun, [facility] [address] [address] 3[address] Jun, Bilateral low back pain without sciatica M54.5 and Muscle spasm of back M62.830 [facility] [address] [id number] [id number] Jan, Dental examination V72.2 [facility] [id number] [place] [address] 83045- 0257 Sep, [facility] [address] [facility] [id number] [place] [address] 81020- 3235 Sep, [facility] [id number] [place] [address] 28992- 8215 Jul, [facility] [id number] [place] [address] 38108- 0855 Jul, [facility] [id number] [place] [address] 55328- 0815 Nov, [facility] [id number] [address]- 0376 Nov, [facility] [address] [place] [address] 20755- 5760 Nov, [facility] [address] [address]- 0864 Nov, [facility] [id number] [address]- 4992 Nov, [facility] [address] [facility] [id number] [address]- 7482 Nov, [facility] [id number] 4996 May, [facility] [id number] [address]- 6505 May, [facility] [id number] [address]- 2546 May, [facility] [address] [address]- 2546 Mar, [facility] [address] [address]- 2546 Mar, [facility] [address] [address]- 2546 Mar, [facility] [address] [address]- 2546 Mar, [facility] [id number] [place] [address] 95491- 2546 Mar, [facility] [address] [address]- 2546 Nov, [facility] [address] [address]- 2546 Nov, [facility] [address] [address]- 2546 October, [facility] [address] [address]- 2546 October, [facility] [address] [address]- 2546 Sep, [facility] [address] [address]- 2546 Jul, [facility] [id number] [address]- 2546 Jul, IMMUNIZATIONS No Known Immunizations SOCIAL HISTORY Never Assessed REASON FOR VISIT reports stiff neck since yesterday am when she woke up. denies any injury to this area. reports pain down her back due to the neck pain. was in the ER friday and friday noc for this abdominal pain. pain is all over her abdomen. when asked pt to take one finger and point to the area of pain...she is unable to do this...does reports left side hurts worse than the right. also complaining of nausea. had negative CT of abdomen and pelvis when at the ER last week. daljit, last BM was this am...normal for her. last menstural perion...07/17/2017. litzy pain with intercourse. PLAN OF CARE Activity Details Follow Up Needs to establish with PCP Reason: VITAL SIGNS Height 60 in 2017-08-10 Weight 181.4 lbs 2017-08-10 Temperature 97.8 degrees Fahrenheit 2017-08-10 Heart Rate 86 bpm 2017-08-10 Respiratory Rate 20 2017-08-10 BMI 35.42 kg/m2 2017-08-10 Blood pressure systolic 126 mmHg 2017-08-10 Blood pressure diastolic 74 mmHg 2017-08-10 MEDICATIONS Medication Instructions Dosage Frequency Start Date End Date Duration Status Fioricet 50-300-40 MG Orally every 6 hrs 1 capsule as needed 6h 20 Jul, 2017 Not-Taking PredniSONE 10 MG Orally Once a day 1 tablet 24h Active Promethazine HCl 25 MG Orally every 12 hrs 1 tablet as needed 12h Active Excedrin Migraine 250-250-65 MG Orally every 6 hrs 2 tablets as needed 6h Not-Taking Naproxen 500 MG Orally every 12 hrs 1 tablet as needed 12h Active Cipro 500 mg Orally twice a day 1 tablet 12h Aug, Aug, 10 day(s) Active Flexeril Not-Taking Flagyl 500 mg Orally 2 times a day 1 tablet 12h Aug, Aug, 10 day(s) Active RESULTS Name Result Date Reference Range UA LONG DIP (IN HOUSE) 2017-08-10 Lot # [id number] Exp date 2017 10 31 Clarity clear Color yellow Odor none GLU negative MARICRUZ negative KET negative SG 1.010 BLO trace pH 6.0 Protein negative URO 0.2 NIT negative VITO negative Lot # [id number] Exp date September 2017 PROCEDURES Procedure Date Ordered Result Body Site URINALYSIS, AUTO, W/O SCOPE August 10, 2017 INSTRUCTIONS MEDICATIONS ADMINISTERED No Known Medications MEDICAL (GENERAL) HISTORY Type Description Date Surgical History sectionx5 Hospitalization History Kidney infection
--- OUTSIDE RECORDS SUMMARY | 2018-03-08 22:35 | XMS REPORT ---
Author Author MARISSA RUTH [facility] Address [address] [place] [address] Care Team Providers Care Grease Monkey Name Role Phone MARISSA RUTH Unavailable PROBLEMS Type Condition ICD9-CM Code BJE53-DS Code Onset Dates Condition Status SNOMED Code Problem Bilateral low back pain without sciatica M54.5 Active 950651441 Problem Leukocytosis, unspecified type D72.829 Active 109226446 Problem Amenorrhea N91.2 Active 11905915 Problem Muscle spasm of back M62.830 Active 925447590 Problem Other obesity due to excess calories E66.09 Active 188131832 Problem Other chronic pain G89.29 Active 87469099 Problem Paresthesia of skin R20.2 Active 82671903 Problem Body mass index (BMI) of 36.0-36.9 in adult Z68.36 Active 607414823 Problem Lumbago with sciatica, right side M54.41 Active 222858238 Problem Lumbago with sciatica, left side M54.42 Active 861691937 ALLERGIES No Known Allergies ENCOUNTERS Encounter Location Date Diagnosis [place] [address] [place] [address] 66621- 2944 Dec, [facility] [id number] [place] [address] 75328- 5871 Dec, [place] [address] [place] [address] 10832- 8252 Nov, Lumbago with sciatica, right side M54.41 ; Lumbago with sciatica, left side M54.42 ; Other chronic pain G89.29 ; Paresthesia of skin R20.2 ; Pain in unspecified limb M79.609 ; Other obesity due to excess calories E66.09 and Body mass index (BMI) of 36.0-36.9 in adult Z68.36 [facility] [address], [place] [address] -[address] Aug, Abdominal pain R10.9 and Leukocytosis, unspecified type D72.829 [facility] [address] [place] [address] 01263 -2933 20 Jul, 2017 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 [facility] [id number] [place] [address] 42415 -5159 08 Jul, 2017 Amenorrhea N91.2 and Abdominal pain R10.9 [place] [id number] [place] [address] 55463- 5742 Aug, [facility] [id number] [place] [address] 35354- 6472 May, [facility] [id number] [place] [address] [phone] Feb, Dental examination Z01.20 [facility] [id number] [place] [address] [phone] Jan, Dental examination Z01.20 [facility] [id number] [place] [address] [phone] Jan, Dental examination Z01.20 [facility] [id number] [place] [address] [phone] Dec, Dental examination Z01.20 [facility] [address] [place] [address] 74918 -1015 Dec, Dental caries, unspecified K02.9 [facility] [id number] [place] [address] [phone] Nov, Dental examination Z01.20 [facility] [id number] [place] [address] 63327- 2750 Jun, Bilateral low back pain without sciatica M54.5 [facility] [id number] [place] [address] 83207- 9066 Jun, [facility] [address] [facility] [id number] [address]- 4204 Jun, Bilateral low back pain without sciatica M54.5 and Muscle spasm of back M62.830 [facility] [address] [id number] [phone] Jan, Dental examination V72.2 [facility] [address] [facility] [id number] [place] [address] 46420- 7609 Sep, [facility] [address] [facility] [id number] [place] [address] 67687- 0835 Sep, [facility] [address] [facility] [id number] [place] [address] 77269- 9702 Jul, [facility] [id number] [place] [address] 20721- 7071 Jul, [facility] [id number] [place] [address] 99884- 0215 Nov, [facility] [address] [facility] [id number], [place] [address]- 2124 Nov, [facility] [address] [facility] [id number] [place] [address] 50261- 4247 Nov, [facility] [address] [facility] [id number], [place] [address]- 1317 Nov, [facility] [address] [facility] [id number], [place] [address]- 9031 Nov, [facility] [address] [facility] [id number], [place] [address]- 2323 Nov, [facility] [address] [facility] [id number] [place] [address] 251857- 9401 May, [facility] [address] [facility] [id number] 3174 May, [facility] [address], [place] [address]- 2546 May, [facility] [address], [place] [address]- 1116 Mar, [facility] [address], [place] [address]- 9986 Mar, [facility] [id number] [address]- 2546 Mar, [facility] [id number] [place] [address] 86997- 2546 Mar, [facility] [id number] [place] [address] 06230- 0476 Mar, [facility] [id number] [place] [address] 95028- 9056 Nov, [facility] [id number] [place] [address] 84931- 0496 Nov, [facility] [address], [place] [address]- 4406 October, [facility] [id number] [place] [address] 51055- 1646 October, [facility] [address], [place] [address]- 7726 Sep, [facility] [address], [place] [address]- 6486 Jul, [facility] [address], [place] [address]- 2546 Jul, IMMUNIZATIONS Vaccine Route Administration Date Status PHENERGAN (IM) 25 MG (25 MG/ML) IM Intramuscular Jul 29, 2017 Administered TORADOL (IM) 60 MG/2ML (UP TO 15 MG) IM Intramuscular Jul 29, 2017 Administered SOCIAL HISTORY Never Assessed REASON FOR VISIT Migraine, nausea, dizziness x2 days JStrasserRN PLAN OF CARE Activity Details Follow Up prn Reason: VITAL SIGNS Height 60 in 2017-07-29 Weight 177 lbs 2017-07-29 Temperature 98.1 degrees Fahrenheit 2017-07-29 Heart Rate 88 bpm 2017-07-29 Respiratory Rate 2017-07-29 BMI 34.56 kg/m2 2017-07-29 Blood pressure systolic 124 mmHg 2017-07-29 Blood pressure diastolic 60 mmHg 2017-07-29 MEDICATIONS Medication Instructions Dosage Frequency Start Date End Date Duration Status Naproxen 500 MG Orally every 12 hrs 1 tablet as needed 12h Not- Taking Excedrin Migraine 250-250-65 MG Orally every 6 hrs 2 tablets as needed 6h Active Fioricet 50-300-40 MG Orally every 6 hrs 1 capsule as needed 6h Jul, Active Flexeril Not-Taking RESULTS No Results PROCEDURES Procedure Date Ordered Result Body Site TORADOL (IM) 60 MG/2ML (UP TO 15 MG) Jul 29, 2017 PHENERGAN (IM) 25 MG (25 MG/ML) Jul 29, 2017 THER/PROPH/DIAG INJ, SC/IM Jul 29, 2017 INSTRUCTIONS MEDICATIONS ADMINISTERED No Known Medications MEDICAL (GENERAL) HISTORY Type Description Date Surgical History sectionx5 Hospitalization History Kidney infection
--- OUTSIDE RECORDS SUMMARY | 2018-03-08 22:37 | XMS REPORT | Continuity of Care Document ---
Author Author [facility] Address Unknown Phone Unavailable Allergies Active Description Code Type Severity Reaction Onset Reported/Identified Relationship to Patient Clinical Status Yes No Known Drug Allergies [id number] Drug Allergy Mild N/A 08/15/2017 Medications There [...] ONI K V25.12 IUD REMOVAL 11/04/2012 DEYA STEEL CHECKER, KASSIE A V25.01 CONTRACEPTION - ORAL CONTRACEPTION 11/04/2012 DEYA STEEL CHECKER, KASSIE A V25.12 IUD REMOVAL 11/04/2012 MA [...] DO, ONI K 784.0 HEADACHE 03/16/2013 DEYA STEEL CHECKER, KASSIE A 728.85 SPASM OF MUSCLE 03/16/2013 DEYA STEEL CHECKER, KASSIE A 784.0 HEADACHE 03/16/2013 MA DO, ONI K 728.85 SPASM OF MUSCLE 03/16/2013 MA DO, ONI K 784.0 HEADACHE 03/24/2013 MA DO, ONI K 780.79 fatigue 03/24/2013 MA DO, ONI K 799.22 IRRITABILITY 03/24/2013 MA DO, ONI K 780.79 fatigue 03/24/2013 MA DO, ONI K 799.22 IRRITABILITY 03/24/2013 DEYA STEEL CHECKER, KASSIE A 780.79 fatigue 03/24/2013 KASSIE FALK [...] NEG 08/06/2017 AIME PEREZ MD Ot Z79.52 SHOT HOLE 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 (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) USE OF SYSTEMIC STER 08/06/2017 AIME [...] NEG 08/07/2017 AIME PEREZ MD Ot Z79.52 USP (CURRENT) USE OF SYSTEMIC STER 08/07/2017 AIME [...] NEG 08/07/2017 AIME PEREZ MD Ot Z79.52 SHOT HOLE 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 (CURRENT) USE OF SYSTEMIC STER 08/07/2017 AIME [...] NEG 08/11/2017 AIME PEREZ MD Ot Z79.52 USP (CURRENT) USE OF SYSTEMIC STER 08/11/2017 AIME [...] UNSPECIFIED 08/15/2017 AIME PEREZ MD Ot Z79.52 SHOT HOLE SHOOTER (CURRENT) USE OF SYSTEMIC STER 08/15/2017 AIME PEREZ MD Ot Z87.59 PERSONAL HISTORY OF COMP OF PREG, CHLDBR 11/22/2017 AIME PEREZ MD Ot F17.210 NICOTINE DEPENDENCE, CIGARETTES, UNCOMPL 11/22/2017 AIME PEREZ MD Ot G43.909 MIGRAINE, UNSP, NOT INTRACTABLE, WITHOUT 11/22/2017 AIME PEREZ MD Ot G57.93 UNSPECIFIED MONONEUROPATHY OF BILATERAL 11/22/2017 AIME PEREZ MD Ot R20.0 ANESTHESIA OF SKIN 11/22/2017 AIME PEREZ MD Ot Z79.52 SHOT HOLE SHOOTER (CURRENT) USE OF SYSTEMIC STER 11/22/2017 AIME PEREZ MD Ot Z87.2 PERSONAL HISTORY OF DISEASES OF THE SKIN 11/22/2017 AIME PEREZ MD Ot Z87.59 PERSONAL HISTORY OF COMP OF PREG, CHLDBR 11/24/2017 AIME PEREZ MD Ot F17.210 NICOTINE DEPENDENCE, CIGARETTES, UNCOMPL 11/24/2017 AIME PEREZ MD Ot G43.909 MIGRAINE, UNSP, NOT INTRACTABLE, WITHOUT 11/24/2017 AIME PEREZ MD Ot G57.93 UNSPECIFIED MONONEUROPATHY OF BILATERAL 11/24/2017 AIME PEREZ MD Ot R20.0 ANESTHESIA OF SKIN 11/24/2017 AIME PEREZ MD Ot Z79.52 USP (CURRENT) USE OF SYSTEMIC STER 11/24/2017 AIME PEREZ MD Ot Z87.2 PERSONAL HISTORY OF DISEASES OF THE SKIN 11/24/2017 AIME PEREZ MD Ot Z87.59 PERSONAL HISTORY OF COMP OF PREG, CHLDBR Procedures Code Description Performed By Performed On MATTHEW OBREGON 07/22/2012 55136 ANTIBODY SCREEN (order) 05/11/2013 90750 URINE TEST (IN- HOUSE) 05/11/2013 83835 UA OB DIP 05/11/2013 58149 CBC 05/11/2013 07921 TSH 05/11/2013 66449 HEP B SURFACE ANTIGEN (RML) 05/11/2013 48427 SYPHILLIS TEST 05/11/2013 6334123 ANTIBODY SCREEN (RESULT ONLY) 05/12/2013 18453 BLOOD TYPE/Rh FACTOR 05/12/2013 82431 HIV ANTIBODIES (RML) 05/12/2013 53246 RUBELLA ANTIBODY, IGG 05/12/2013 56092 CULTURE URINE 05/12/2013 Results Test Result Range [...] 08/05/17 22:10 Blood monocytes/100 leukocytes 0 % NR Manual blood segmented neutrophils/100 leukocytes 59 % NRG Blood band neutrophils/100 leukocytes 0 % NRG Manual blood lymphocytes/100 leukocytes 39 % NR Manual eosinophils/100 leukocytes in nose 2 % NR Manual blood basophils/100 leukocytes 0 % NRG Blood anisocytosis detection by light microscopy SLIGHT BANNER Comprehensive metabolic panel - 08/05/17 22:10 Serum [...] anisocytosis detection by light microscopy SLIGHT NRG VITAMIN D, 25-H - 11/24/17 12:50 VITAMIN D,25-OH,TOTAL,IA 62 ng/mL 30-100 VITAMIN B12 - 11/24/17 12:50 VITAMIN B12 304 pg/mL 200-1100 Encounters ACCT No. Visit Date/Time Discharge Status Pt. Type Provider Facility Loc./Unit Complaint [id number] 05/11/2013 10:53:00 05/11/2013 23:59:59 [facility] Outpatient ON[place] DO [id number] 05/11/2013 10:53:00 05/11/2013 23:59:59 [facility] Outpatient KASSIE FALK APRN [id number] 04/07/2013 09:31:00 04/07/2013 23:59:59 [facility] Outpatient ONI MA DO [id number] 03/24/2013 16:34:00 03/24/2013 23:59:59 [facility] Outpatient ONI [place] DO [id number] 03/16/2013 18:22:00 03/16/2013 23:59:59 [facility] Outpatient ONI MA DO [id number] 07/22/2012 14:13:00 07/22/2012 23:59:59 [facility] Outpatient ONI MA DO Armani [id number] 11/04/2012 11:49:00 Document Registration [id number] 11/24/2017 12:20:00 11/24/2017 23:59:59 [facility] [id number] 11/24/2017 12:20:00 Document Registration [id number] 11/22/2017 23:10:00 11/22/2017 23:39:00 DIS Emergency AIME PEREZ MD [facility] ER TOES TINGLE W PAIN [id number] 08/15/2017 16:34:00 08/15/2017 21:04:00 DIS Emergency AIME EPREZ MD [facility] ER FEVER/HEADACHE/BODY ACHES [id number] 08/06/2017 22:25:00 08/07/2017 00:44:00 DIS Emergency AIME PEREZ MD [facility] ER LEFT SIDE PAIN [id number] 08/05/2017 21:44:00 08/06/2017 00:07:00 DIS Emergency AIME PEREZ MD [facility] ER ABD AND BACK PAIN, HEADACHE, NAUSEA [id number] 08/25/2016 20:56:00 08/25/2016 22:54:00 DIS Emergency AMEENA CAO MD [facility] ER CHEST PAIN [id number] 01/08/2016 02:12:00 01/08/2016 03:33:00 DIS Emergency AMEENA CAO MD [facility] ER HEADACHES, N/V [id number] 12/17/2015 22:03:00 12/17/2015 22:35:00 DIS Emergency SRIDHAR ORTIZ APRN [facility] ER DENTAL PAIN [id number] 12/05/2015 20:58:00 12/05/2015 22:51:00 DIS Emergency SRIDHAR ORTIZ STEEL CHECKER [facility] ER [id number] 05/15/2014 12:20:00 05/15/2014 14:26:00 DIS Emergency ISHAN DONALD, ZAYRA Lomeli [facility] [id number] 11/25/2013 10:00:00 11/27/2013 17:53:00 DIS Inpatient [id number] 11/18/2013 11:15:00 11/18/2013 23:59:59 [facility] Outpatient [id number] 11/08/2013 17:10:00 11/08/2013 18:45:00 DIS Outpatient [id number] 10/16/2013 17:21:00 10/16/2013 19:55:00 DIS Outpatient [id number] 09/14/2013 09:42:00 09/14/2013 23:59:59 CLS Outpatient [id number] 08/26/2013 17:21:00 08/26/2013 19:07:00 DIS Outpatient [id number] 08/19/2013 14:03:00 08/19/2013 23:59:59 CLS Outpatient [id number] 08/18/2013 18:23:00 08/18/2013 20:00:00 DIS Emergency [id number] 07/03/2013 02:19:00 07/03/2013 06:11:00 DIS Emergency [id number] 04/02/2013 11:33:00 04/02/2013 23:59:59 CLS Outpatient [id number] 04/01/2013 20:38:00 04/01/2013 23:11:00 DIS Emergency [id number] 11/02/2012 04:09:00 11/03/2012 14:00:00 DIS Inpatient [id number] 03/23/2015 22:43:00 Document Registration
[2018-03-08] MEDS ORDERED: DULO20CA PO (22:51)
[2018-03-08] MEDS ORDERED: diphenhydrAMINE 50 MG/ML INJ (BENADRYL) IM STA (23:21)
[2018-03-08] MEDS ORDERED: KETOROLAC 60 MG/2 ML VIAL IM STA (23:21)
[2018-03-08] MEDS ORDERED: ORPHENADRINE 60 MG/2 ML (NORFLEX) AMP IM STA (23:21)
[2018-03-09] MEDS ORDERED: BUTA1CAP45 PO (00:08)
[2018-03-09] MEDS ORDERED: CYCL10TA9 PO (00:08)
[2018-03-09] MEDS ORDERED: NAPR-915 PO (00:08)
--- NOTE | 2018-03-09 00:09 | ED Headache ---
General Chief Complaint: Head/Cervical Problems Stated Complaint: MIGRAINE Nursing Triage Note: Pt c/o migraine for 3-4 days. Pt took 9 excedrin migraine yesterday, 6 today and a fioricet tonight at 1730. Pt states nothing has touched the pain. Pt is light sensitive. Nursing Sepsis Screen: No Definite Risk Source: patient History of Present Illness Date Seen by Provider: Mar 08, 2018 Time Seen by Provider: 23:08 Initial Comments PT ARRIVES VIA POV FROM HOME C/O "REALLY BAD MIGRAINE" STATES HEADACHE BEGAN " 3, 4, 5 DAYS AGO" PAIN IS MOSTLY ON TOP OF HEAD PT HAS CHRONIC HEADACHES--AT LEAST ONE HEADACHE A WEEK, BUT HAS HEADACHES THIS BAD A COUPLE OF TIMES A MONTH PT STATES SHE HAS TAKEN A TOTAL OF 9 EXCEDRIN YESTERDAY, AND 6 TODAY ( TAKES 3 PILLS AT A TIME) STATES SHE ALSO TOOK 1 FIORCET AT 1730--LAST PILL PT STATES NO RELIEF NO NAUSEA NO VISION CHANGES NO RECENT ILLNESS LMP 02/26/18. NORMAL. NO CONTROL PCP: MARNIE, [facility]--MISSED FIRST APPOINTMENT WITH HER, HAS NOT RESCHEDULED Allergies and Home Medications Allergies Coded Allergies: No Known Drug Allergies (Unverified , 08/15/17) Home Medications Butalb/Acetaminophen/Caffeine 1 Each Capsule, 1-2 EACH PO Q6H PRN for HEADACHE Prescribed by: LEEANNE WANG on 03/09/187 Cyclobenzaprine HCl 10 Mg Tablet, 10 MG PO TID PRN for SPASMS Prescribed by: AMEENA TIWARI on 01/08/16 0325 Cyclobenzaprine HCl 10 Mg Tablet, 10 MG PO Q8H Prescribed by: LEEANNE WANG on 03/09/187 Hydrocodone/Acetaminophen 1 Each Tablet, 1 EACH PO Q6H PRN for BREAKTHROUGH PAIN Prescribed by: AIME PEREZ on 08/15/172046 Ibuprofen 800 Mg Tablet, 1 TAB PO UD PRN for PAIN, (Reported) Naproxen 500 Mg Tablet, 500 MG PO BID Prescribed by: LEEANNE WANG on 03/09/187 Ondansetron 4 Mg Tab.rapdis, 4 MG PO Q6H PRN for NAUSEA/VOMITING Prescribed by: AIME PEREZ on 08/05/17 4490 Prednisone 20 Mg Tab, 20 MG PO DAILY Prescribed by: AMEENA TIWARI on 08/25/162244 Prednisone 20 Mg Tab, 20 MG PO BID Prescribed by: AIME PEREZ on 08/07/17 0020 Promethazine HCl 25 Mg Tablet, 25 MG PO Q6H PRN for NAUSEA/VOMITING Prescribed by: AIME PEREZ on 08/07/17 0020 Promethazine HCl 25 Mg Tablet, 25 MG PO Q6H PRN for NAUSEA/VOMITING Prescribed by: AIME PEREZ on 08/15/172046 Patient Home Medication List Home Medication List Reviewed: Yes Review of Systems Review of Systems Constitutional: no symptoms reported Eyes: No Symptoms Reported Ears, Nose, Mouth, Throat: no symptoms reported Respiratory: no symptoms reported Cardiovascular: no symptoms reported Gastrointestinal: no symptoms reported Genitourinary: no symptoms reported Musculoskeletal: no symptoms reported Skin: no symptoms reported Psychiatric/Neurological: See HPI, Headache Past Yrtggyz-Byygsx-Ynspdu Hx Patient Social History Alcohol Use: Denies Use Recreational Drug Use: No Smoking Status: Current Everyday Smoker (1 PPD) Type Used: Cigarettes 2nd Hand Smoke Exposure: No Recent Foreign Travel: No Contact w/Someone Who Travel: No Recent Infectious Disease Expo: No Recent Hopitalizations: No Immunizations Up To Date Tetanus Booster (TDap): Unknown Seasonal Allergies Seasonal Allergies: No Past Medical History Surgeries: Yes (5 C-SECTIONS) Section Respiratory: No Cardiac: No Neurological: Yes Headaches /Migraines Reproductive Disorders: No Female Reproductive Disorders: Denies Sexually Transmitted Disease: No Genitourinary: Yes UTI-Chronic Gastrointestinal: No Musculoskeletal: Yes Arthritis, Chronic Back Pain Endocrine: No HEENT: No Cancer: No Psychosocial: No Integumentary: Yes (Chronic dermatitis of the hands) Blood Disorders: No Adverse Reaction/Blood Tranf: No Family Medical History Family history: Hypertension 19 MOTHER No Pertinent Family Hx Physical Exam Vital Signs Vital Signs - First Documented 03/08/18 22:36 Temp 98.6 Pulse 73 Resp 20 B/P (MAP) 112/62 (79) Pulse Ox 98 O2 Delivery Room Air Capillary Refill : Less Than 3 Seconds Height, Weight, BMI Height: 5'1.00" Weight: 170lbs. 0oz. 77.060266lw; 32.87 BMI Method:Stated General Appearance: WD/WN, no apparent distress, other (HAS TOWEL OVER FACE) HEENT: PERRL/EOMI, normal ENT inspection, TMs normal, pharynx normal, photophobia (MILD) Neck: non-tender, full range of motion, supple, normal inspection Cardiovascular: regular rate, rhythm, no murmur Respiratory: normal breath sounds Gastrointestinal: non tender, soft Extremities: normal inspection, no pedal edema Psychiatric: alert, oriented x 3 Crainal Nerves: normal hearing, normal speech, PERRL Coordination/Gait: normal gait Motor/Sensory: no motor deficit, no sensory deficit Skin: normal color, warm/dry Progress/Results/Core Measures Results/Orders My Orders Orders - LEEANNE WANG DO Ketorolac Injection (Toradol Injection) (03/08/18 23:21) Orphenadrine Injection (Norflex Injectio (03/08/18 23:21) Diphenhydramine Injection (Benadryl Inje (03/08/18 23:21) Vital Signs/I&O 03/08/18 03/09/18 22:36 00:21 Temp 98.6 97.9 Pulse 73 69 Resp 20 18 B/P (MAP) 112/62 (79) 110/76 Pulse Ox 98 100 O2 Delivery Room Air Room Air Blood Pressure Mean: 79 Progress Progress Note : Progress Note HEADACHE IMPROVING AND PT IS NO LONGER PHOTOPHOBIC PT STATES SHE IS OUT OF FIORCET, SHE IS ALSO OUT OF HER FLEXERIL AND NAPROXEN THAT SHE TAKES FOR CHRONIC BACK PAIN Departure Impression Primary Impression: Headache Additional Impression: Chronic headaches Disposition: 01 HOME, SELF-CARE Condition: Improved Departure-Patient Inst. Referrals: [facility] (PCP/Family) Primary Care Physician Patient Instructions: Headache, Adult (DC) Add. Discharge Instructions: LOTS OF CLEAR LIQUIDS--WATER, BROTH, JELLO, GATORADE FOLLOW UP WITH YOUR DR TOMORROW IF NO BETTER All discharge instructions reviewed with patient and/or family. Voiced understanding. Scripts Cyclobenzaprine HCl (Cyclobenzaprine HCl) 10 Mg Tablet 10 MG PO Q8H, #15 TAB Prov: LEEANNE WANG DO 03/09/18 Naproxen (Naproxen) 500 Mg Tablet 500 MG PO BID, #20 TAB Prov: LEEANNE WANG DO 03/09/18 Butalb/Acetaminophen/Caffeine (Esgic Capsule) 1 Each Capsule 1-2 EACH PO Q6H PRN for HEADACHE, #10 CAP Prov: LEEANNE WANG DO 03/09/18 LEEANNE WANG DO Mar 09, 2018 00:08
[2018-03-09 00:21] VITALS: BP 110/76
== END 2018-03-09 00:21 | disposition home or self-care (01) ==
LOC: EDUNIT# 22:30 → ER 22:30
DX: G43.909 Migraine, unspecified, not intractable, without status migrainosus (principal); F17.210 Nicotine dependence, cigarettes, uncomplicated; Z79.52 Long term (current) use of systemic steroids; Z98.890 Other specified postprocedural states; Z87.440 Personal history of urinary (tract) infections
CPT/HCPCS: 99284

== ENCOUNTER 2018-03-18 19:43 | Observation (INO) | payer OTHER ==
[~2018-03-18] VITALS: Ht 154.9 cm; Wt 89.5 kg
[~2018-03-18 19:43] MED LIST changes: +BUTA1CAP45 PO; +DULO20CA PO; +NAPR-915 PO
--- NOTE | 2018-03-18 19:58 | ED Headache ---
General Stated Complaint: MIGRANE Source: patient History of Present Illness Date Seen by Provider: Mar 18, 2018 Time Seen by Provider: 19:57 Initial Comments To ER with a global headache for 2-3 weeks. No nausea no vomiting. Chills but no measured fever. He's had a slight cough that just started this evening. He reports diffuse body aches. Temperature on arrival to ER is 100.2. Timing/Duration: other (3 weeks) Severity/Quality: constant Location: global Prior Headaches/Recent Trauma: frequent headaches Associated Symptoms: fatigue, fever/chills; No nausea/vomiting, No sinus infection, No stiff neck Allergies and Home Medications Allergies Coded Allergies: No Known Drug Allergies (Unverified , 08/15/17) Home Medications Butalb/Acetaminophen/Caffeine 1 Each Capsule, 1-2 EACH PO Q6H PRN for HEADACHE Prescribed by: LEEANNE WANG on 03/09/187 Cyclobenzaprine HCl 10 Mg Tablet, 10 MG PO TID PRN for SPASMS Prescribed by: AMEENA TIWARI on 01/08/16 0325 Cyclobenzaprine HCl 10 Mg Tablet, 10 MG PO Q8H Prescribed by: LEEANNE WANG on 03/09/187 Hydrocodone/Acetaminophen 1 Each Tablet, 1 EACH PO Q6H PRN for BREAKTHROUGH PAIN Prescribed by: AIME PEREZ on 08/15/172046 Ibuprofen 800 Mg Tablet, 1 TAB PO UD PRN for PAIN, (Reported) Naproxen 500 Mg Tablet, 500 MG PO BID Prescribed by: LEEANNE WANG on 03/09/187 Ondansetron 4 Mg Tab.rapdis, 4 MG PO Q6H PRN for NAUSEA/VOMITING Prescribed by: AIME PEREZ on 08/05/17 2359 Prednisone 20 Mg Tab, 20 MG PO DAILY Prescribed by: AMEENA TIWARI on 08/25/16 2245 Prednisone 20 Mg Tab, 20 MG PO BID Prescribed by: AIME PEREZ on 08/07/17 002 Promethazine HCl 25 Mg Tablet, 25 MG PO Q6H PRN for NAUSEA/VOMITING Prescribed by: AIME PEREZ on 08/07/17 002 Promethazine HCl 25 Mg Tablet, 25 MG PO Q6H PRN for NAUSEA/VOMITING Prescribed by: AIME PEREZ on 08/15/172046 Patient Home Medication List Home Medication List Reviewed: Yes Review of Systems Review of Systems Constitutional: see HPI, chills, malaise Eyes: No Symptoms Reported Ears, Nose, Mouth, Throat: no symptoms reported Respiratory: see HPI, cough Cardiovascular: no symptoms reported Genitourinary: no symptoms reported Musculoskeletal: no symptoms reported Skin: no symptoms reported Psychiatric/Neurological: No Symptoms Reported Past Mayipey-Dnapqc-Rzfyqc Hx Patient Social History Type Used: Cigarettes 2nd Hand Smoke Exposure: No Recent Foreign Travel: No Contact w/Someone Who Travel: No Recent Hopitalizations: No Immunizations Up To Date Tetanus Booster (TDap): Unknown Seasonal Allergies Seasonal Allergies: No Past Medical History Surgeries: Yes (5 C-SECTIONS) Section Respiratory: No Cardiac: No Neurological: Yes Headaches /Migraines Reproductive Disorders: No Female Reproductive Disorders: Denies Sexually Transmitted Disease: No Genitourinary: Yes UTI-Chronic Gastrointestinal: No Musculoskeletal: Yes Arthritis, Chronic Back Pain Endocrine: No HEENT: No Cancer: No Psychosocial: No Integumentary: Yes (Chronic dermatitis of the hands) Blood Disorders: No Adverse Reaction/Blood Tranf: No Family Medical History Family history: Hypertension 19 MOTHER No Pertinent Family Hx Physical Exam Vital Signs Vital Signs - First Documented 03/18/18 19:50 Temp 100.2 Pulse 115 Resp 19 B/P (MAP) 128/76 (93) Capillary Refill : Height, Weight, BMI Height: 5'1.00" Weight: 170lbs. 0oz. 77.474583gp; 32.87 BMI Method:Stated General Appearance: WD/WN, no apparent distress HEENT: PERRL/EOMI, normal ENT inspection, TMs normal Neck: non-tender, full range of motion Cardiovascular: no murmur, tachycardia (118) Respiratory: normal breath sounds, no respiratory distress, no accessory muscle use Gastrointestinal: normal bowel sounds, non tender Psychiatric: alert, oriented x 3 Skin: normal color, warm/dry Progress/Results/Core Measures Results/Orders Lab Results Laboratory Tests Test 03/18/18 20:01 03/18/18 20:03 03/18/18 20:30 Range/Units White Blood Count 20.0 H 4.3-11.0 10^3/uL Red Blood Count 3.69 L 4.35-5.85 10^6/uL Hemoglobin 11.2 L 11.5-16.0 G/DL Hematocrit 34 L 35-52 % Mean Corpuscular Volume 92 80-99 FL Mean Corpuscular Hemoglobin 30 25-34 PG Mean Corpuscular Hemoglobin Concent 33 32-36 G/DL Red Cell Distribution Width 16.5 H 10.0-14.5 % Platelet Count 351 130-400 10^3/uL Mean Platelet Volume 10.7 H 7.4-10.4 FL Neutrophils (%) (Auto) 84 H 42-75 % Lymphocytes (%) (Auto) 10 L 12-44 % Monocytes (%) (Auto) 4 0-12 % Eosinophils (%) (Auto) 1 0-10 % Basophils (%) (Auto) 0 0-10 % Neutrophils # (Auto) 16.8 H 1.8-7.8 X 10^3 Lymphocytes # (Auto) 2.1 1.0-4.0 X 10^3 Monocytes # (Auto) 0.9 0.0-1.0 X 10^3 Eosinophils # (Auto) 0.2 0.0-0.3 10^3/uL Basophils # (Auto) 0.0 0.0-0.1 10^3/uL Neutrophils % (Manual) 83 % Lymphocytes % (Manual) 11 % Monocytes % (Manual) 3 % Eosinophils % (Manual) 1 % Basophils % (Manual) 1 % Band Neutrophils 1 % Dohle Bodies SLIGHT Anisocytosis SLIGHT Sodium Level 135 135-145 MMOL/L Potassium Level 3.4 L 3.6-5.0 MMOL/L Chloride Level 102 98-107 MMOL/L Carbon Dioxide Level 21 21-32 MMOL/L Anion Gap 12 5-14 MMOL/L Blood Urea Nitrogen 6 L 7-18 MG/DL Creatinine 0.67 0.60-1.30 MG/DL Estimat Glomerular Filtration Rate > 60 BUN/Creatinine Ratio 9 Glucose Level 139 H 70-105 MG/DL Calcium Level 9.4 8.5-10.1 MG/DL Corrected Calcium 9.1 8.5-10.1 MG/DL Total Bilirubin 0.3 0.1-1.0 MG/DL Aspartate Amino Transf (AST/SGOT) 22 5-34 U/L Alanine Aminotransferase (ALT/SGPT) 34 0-55 U/L Alkaline Phosphatase 119 40-136 U/L Total Protein 7.6 6.4-8.2 GM/DL Albumin 4.4 3.2-4.5 GM/DL Monoscreen NEGATIVE NEGATIVE Urine Color YELLOW Urine Clarity CLEAR Urine pH 6 5-9 Urine Specific [place] 1.015 L 1.016-1.022 Urine Protein NEGATIVE NEGATIVE Urine Glucose (UA) NEGATIVE NEGATIVE Urine Ketones NEGATIVE NEGATIVE Urine Nitrite NEGATIVE NEGATIVE Urine Bilirubin NEGATIVE NEGATIVE Urine Urobilinogen NORMAL NORMAL MG/DL Urine Leukocyte Esterase NEGATIVE NEGATIVE Urine RBC (Auto) 3+ H NEGATIVE Urine RBC 10-25 H /HPF Urine WBC NONE /HPF Urine Squamous Epithelial Cells 0-2 /HPF Urine Crystals NONE /LPF Urine Bacteria NEGATIVE /HPF Urine Casts NONE /LPF Urine Mucus NEGATIVE /LPF Urine Culture Indicated NO Urine Test NEGATIVE NEGATIVE Urine Opiates Screen POSITIVE H NEGATIVE Urine Oxycodone Screen NEGATIVE NEGATIVE Urine Methadone Screen NEGATIVE NEGATIVE Urine Propoxyphene Screen NEGATIVE NEGATIVE Urine Barbiturates Screen NEGATIVE NEGATIVE Ur Tricyclic Antidepressants Screen NEGATIVE NEGATIVE Urine Phencyclidine Screen NEGATIVE NEGATIVE Urine Amphetamines Screen NEGATIVE NEGATIVE Urine Methamphetamines Screen NEGATIVE NEGATIVE Urine Benzodiazepines Screen POSITIVE H NEGATIVE Urine Cocaine Screen NEGATIVE NEGATIVE Urine Cannabinoids Screen NEGATIVE NEGATIVE Group A Streptococcus Screen NEGATIVE NEGATIVE Micro Results Microbiology 03/18/18 Influenza Types A,B Antigen (DIMITRI) - Final, Complete My Orders Orders - SRIDHAR ORTIZ APRN Ketorolac Injection (Toradol Injection) (03/18/18 20:00) Diphenhydramine Injection (Benadryl Inje (03/18/18 20:00) Prochlorperazine Injection (Compazine In (03/18/18 20:00) Cbc With Automated Diff (03/18/18 19:56) Comprehensive Metabolic Panel (03/18/18 19:56) Influenza A And B Antigens (03/18/18 19:56) Ns Iv 1000 Ml (Sodium Chloride 0.9%) (03/18/18 20:00) Ketorolac Injection (Toradol Injection) (03/18/18 20:00) Prochlorperazine Injection (Compazine In (03/18/18 20:00) Diphenhydramine Injection (Benadryl Inje (03/18/18 20:00) Acetaminophen Tablet (Tylenol Tablet) (03/18/18 20:00) Manual Differential (03/18/18 20:01) Rapid Strep A Screen (03/18/18 20:25) Chest 1 View, Ap/Pa Only (03/18/18 20:25) Monotest (03/18/18 20:26) Hcg,Qualitative Urine (03/18/18 20:36) Ct Head Wo (03/18/18 20:48) Csf Cell Count (03/18/18 20:48) Csf Glucose (03/18/18 20:48) Csf Total Protein (03/18/18 20:48) Csf Culture (03/18/18 20:48) Virus Culture (03/18/18 20:48) Anesthesia Consult (03/18/18 20:57) Fentanyl Injection (Sublimaze Injection (03/18/18 21:00) Chest Pa/Lat (2 View) (03/18/18 21:18) Ns Iv 1000 Ml (Sodium Chloride 0.9%) (03/18/18 22:00) Blood Culture (03/18/18 21:46) Lactic Acid Analyzer (03/18/18 21:46) Midazolam Injection (Versed Injection) (03/18/18 22:00) Lidocaine 1% Inj 20 Ml (Xylocaine 1% Inj (03/18/18 21:53) Lidocaine Pf 1% 5 Ml Injection (Xylocain (03/18/18 21:55) Lidocaine Pf 1% 5 Ml Injection (Xylocain (03/18/18 21:56) Medications Given in ED Current Medications Medications Dose Ordered Sig/Franc Route Start Time Stop Time Status Last Admin Dose Admin Acetaminophen 1,000 mg ONCE ONCE PO 03/18/18 20:00 03/18/18 20:01 DC 03/18/18 20:12 1,000 MG Diphenhydramine HCl 25 mg ONCE ONCE IVP 03/18/18 20:00 03/18/18 20:01 DC 03/18/18 20:13 25 MG Fentanyl Citrate 50 mcg ONCE ONCE IVP 03/18/18 21:00 03/18/18 21:01 DC 03/18/18 21:09 50 MCG Ketorolac Tromethamine 30 mg ONCE ONCE IVP 03/18/18 20:00 03/18/18 20:01 DC 03/18/18 20:14 30 MG Lidocaine HCl 5 ml STK-MED ONCE .ROUTE 03/18/18 21:55 03/18/18 22:00 DC 03/18/18 22:05 5 ML Lidocaine HCl 5 ml STK-MED ONCE .ROUTE 03/18/18 21:56 03/18/18 22:01 DC 03/18/18 22:06 5 ML Midazolam HCl 2 mg ONCE ONCE IVP 03/18/18 22:00 03/18/18 22:01 DC 03/18/18 22:05 2 MG Prochlorperazine Edisylate 5 mg ONCE ONCE IV 03/18/18 20:00 03/18/18 20:01 DC 03/18/18 20:14 5 MG Vital Signs/I&O 03/18/18 03/18/18 19:50 20:12 Temp 100.2 100.2 Pulse 115 Resp 19 B/P (MAP) 128/76 (93) Diagnostic Imaging Diagonstic Imaging: CT Comments NAME: HARI JAY [facility] REC#: [id number] PT STATUS: REG ER : 1980 PHYSICIAN: SRIDHAR ORTIZ APRN ADMIT DATE: 03/18/18/ER Signed Date of Exam:03/18/18 CT HEAD WO PROCEDURE: CT head without contrast. TECHNIQUE: Multiple contiguous axial images were obtained through the brain without the use of intravenous contrast. INDICATION: Headache. Comparison: 08/15/2017 Findings: No hyperdense hemorrhage or space-occupying mass. No hydrocephalus or midline shift. The basilar cisterns are normal. Cline-white matter differentiation is well preserved. The mastoid air cells are clear. Paranasal sinuses are normal. No focal osseous abnormality of the calvarium. Impression: No acute intracranial process. Dictated by: Dictated on workstation # [id number] Dict: 03/18/182110 Trans: 03/18/182111 [facility] [id number] Interpreted by: AVI GAMA MD Electronically signed by: AVI GAMA MD 03/18/182111 NAME: HARI JAY [facility] REC#: [id number] PT STATUS: REG ER : 1980 PHYSICIAN: SRIDHAR ORTIZ APRN ADMIT DATE: 03/18/18/ER Draft Date of Exam:03/18/18 CHEST 1 VIEW, AP/PA ONLY CHEST 1 VIEW, AP/PA ONLY Indication: Fever Comparison: 08/15/2017 Findings: Examination is limited due to patient's body habitus and portable technique. This results in summation shadow over the lungs. There is potential increased right upper lobe pulmonary opacities, these could be artifactual. Posterior lower lobes are very poorly evaluated by portable radiography. No pleural effusion or pneumothorax. Normal cardiomediastinal silhouette. Impression: Limited portable examination due to patient's large breast resulting in summation artifact. Allowing for this, there is potential increased right upper lobe opacities rasing the possibility of pneumonia. If it will alter the patient's management, consider dedicated PA and lateral chest radiographs for better evaluation of the lungs. Dictated on workstation # [id number] Dict: 03/18/182100 Trans: 03/18/182114 [facility] [id number] Interpreted by: AVI GAMA MD Electronically signed by: Departure Communication (Admissions) Time/Spoke to Admitting Phy: 22:[address] Benitez who agrees to admit observation treating with empiric Rocephin since we are unable to obtain CSF. However her symptoms have been present for 2-3 weeks so bacterial meningitis would be unlikely given that she has no neurologic deficit and no nuchal rigidity.. Patient reports minimal improvement in her headache after Toradol, Compazine, Benadryl and fentanyl. Of note, she was positive for benzodiazepines and opiates, neither of which can I find a previous prescription for on her external medication history 2224- anesthesia has been in the room to attempt lumbar puncture. Patient was intolerant of attempts despite total of 4 mg of Versed reporting that she was very anxious and wished to stop after a few attempts. Impression Primary Impression: Headache Additional Impression: Leukocytosis Disposition: ADMITTED INPATIENT Condition: Stable Admissions Decision to Admit Reason: Admit from ER (General) Decision to Admit/Date: Mar 18, 2018 Time/Decision to Admit Time: 22:25 Departure-Patient Inst. Referrals: [facility] (PCP/Family) Primary Care Physician SRIDHAR ORTIZ APRN Mar 18, 2018 19:58
[2018-03-18] MEDS ORDERED: diphenhydrAMINE 50 MG/ML INJ (BENADRYL) IVP ONE (20:00)
[2018-03-18] MEDS ORDERED: NS IV 1000 ML 1,000 ML IV SCH ×2 (20:00→22:00)
[2018-03-18] MEDS ORDERED: ACETAMINOPHEN 500 MG TAB (TYLENOL) PO ONE (20:00)
[2018-03-18] MEDS ORDERED: PROCHLORPERAZINE 10 MG/2ML INJ (COMPAZINE) IM ONE (20:00)
[2018-03-18] MEDS ORDERED: KETOROLAC 60 MG/2 ML VIAL IM ONE (20:00)
[2018-03-18] MEDS ORDERED: KETOROLAC 30 MG/ML VIAL IVP ONE (20:00)
[2018-03-18] MEDS ORDERED: PROCHLORPERAZINE 10 MG/2ML INJ (COMPAZINE) IV ONE (20:00)
[2018-03-18] MEDS ORDERED: diphenhydrAMINE 50 MG/ML INJ (BENADRYL) IM ONE (20:00)
[2018-03-18 20:13] LABS: BASOPHILS % (AUTO) 0 % (0-10); EOSINOPHILS # (AUTO) 0.2 10^3/uL (0.0-0.3); EOSINOPHILS % (AUTO) 1 % (0-10); HEMATOCRIT 34 % (35-52); HEMOGLOBIN 11.2 G/DL (11.5-16.0); LYMPHOCYTES # (AUTO) 2.1 X 10^3 (1.0-4.0); LYMPHOCYTES % (AUTO) 10 % (12-44); MEAN CORPUSCULAR HEMOGLOBIN 30 PG (25-34); MEAN CORPUSCULAR HGB CONC 33 G/DL (32-36); MEAN CORPUSCULAR VOLUME 92 FL (80-99); MEAN PLATELET VOLUME 10.7 FL (7.4-10.4); MONOCYTES # (AUTO) 0.9 X 10^3 (0.0-1.0); MONOCYTES % (AUTO) 4 % (0-12); NEUTROPHILS # (AUTO) 16.8 X 10^3 (1.8-7.8); NEUTROPHILS % (AUTO) 84 % (42-75); PLATELET COUNT 351 10^3/uL (130-400); RED BLOOD COUNT 3.69 10^6/uL (4.35-5.85); RED CELL DISTRIBUTION WIDTH 16.5 % (10.0-14.5)
[2018-03-18 20:16] LABS: BILIRUBIN,URINE NEGATIVE (NEGATIVE); CLARITY,URINE CLEAR; COLOR,URINE YELLOW; GLUCOSE, URINE (UA) NEGATIVE (NEGATIVE); KETONES,URINE NEGATIVE (NEGATIVE); LEUKOCYTE ESTERASE ,URINE NEGATIVE (NEGATIVE); NITRITE,URINE NEGATIVE (NEGATIVE); PH,URINE 6 (5-9); PROTEIN,URINE NEGATIVE (NEGATIVE); UROBILINOGEN,URINE NORMAL (NORMAL)
[2018-03-18 20:26] LABS: BACTERIA,URINE NEGATIVE /HPF; SQUAMOUS EPITHELIAL CELL,UR 0-2 /HPF
[2018-03-18 20:31] LABS: ALANINE AMINOTRANSFERASE 34 U/L (0-55); ALBUMIN 4.4 GM/DL (3.2-4.5); ALKALINE PHOSPHATASE 119 U/L (40-136); BILIRUBIN,TOTAL 0.3 MG/DL (0.1-1.0); BUN/CREATININE RATIO 9; CALCIUM 9.4 MG/DL (8.5-10.1); CARBON DIOXIDE 21 MMOL/L (21-32); CHLORIDE 102 MMOL/L (98-107); CREATININE SERUM 0.67 MG/DL (0.60-1.30); GFR ESTIMATED > 60; GLUCOSE 139 MG/DL (70-105); POTASSIUM 3.4 MMOL/L (3.6-5.0); SODIUM 135 MMOL/L (135-145); TOTAL PROTEIN 7.6 GM/DL (6.4-8.2)
[2018-03-18 20:33] LABS: AMPHETAMINE SCREEN, URINE NEGATIVE (NEGATIVE); BARBITURATE SCREEN URINE NEGATIVE (NEGATIVE); BENZODIAZEPINES SCREEN URINE POSITIVE (NEGATIVE); CANNABINOID SCREEN, URINE NEGATIVE (NEGATIVE); COCAINE SCREEN URINE NEGATIVE (NEGATIVE); METHADONE STAT NEGATIVE (NEGATIVE); METHAMPHETAMINE SCREEN URINE S NEGATIVE (NEGATIVE); OPIATE SCREEN URINE POSITIVE (NEGATIVE); OXYCODONE STAT NEGATIVE (NEGATIVE); PROPOXYPHENE STAT NEGATIVE (NEGATIVE); TRICYCLIC ANTIDEPRESSANTS SCRE NEGATIVE (NEGATIVE)
[2018-03-18 20:52] LABS: ANISOCYTOSIS SLIGHT; BAND NEUTROPHILS 1 %; BASOPHILS % (MANUAL) 1 %; EOSINOPHILS % (MANUAL) 1 %; LYMPHOCYTES % (MANUAL) 11 %; MONOCYTES % (MANUAL) 3 %; NEUTROPHILS % (MANUAL) 83 %
[2018-03-18] MEDS ORDERED: fentaNYL INJECTION 100 MCG/2 ML AMP IVP ONE (21:00)
--- NOTE | 2018-03-18 21:14 | Diagnostic Imaging Report ---
PROCEDURE: CT head without contrast. TECHNIQUE: Multiple contiguous axial images were obtained through the brain without the use of intravenous contrast. INDICATION: Headache. Comparison: 08/15/2017 Findings: No hyperdense hemorrhage or space-occupying mass. No hydrocephalus or midline shift. The basilar cisterns are normal. Cline-white matter differentiation is well preserved. The mastoid air cells are clear. Paranasal sinuses are normal. No focal osseous abnormality of the calvarium. Impression: No acute intracranial process. Dictated by: Dictated on workstation # [id number]
--- NOTE | 2018-03-18 21:16 | Diagnostic Imaging Report ---
CHEST 1 VIEW, AP/PA ONLY Indication: Fever Comparison: 08/15/2017 Findings: Examination is limited due to patient's body habitus and portable technique. This results in summation shadow over the lungs. There is potential increased right upper lobe pulmonary opacities, these could be artifactual. Posterior lower lobes are very poorly evaluated by portable radiography. No pleural effusion or pneumothorax. Normal cardiomediastinal silhouette. Impression: Limited portable examination due to patient's large breast resulting in summation artifact. Allowing for this, there is potential increased right upper lobe opacities rasing the possibility of pneumonia. If it will alter the patient's management, consider dedicated PA and lateral chest radiographs for better evaluation of the lungs. Dictated by: Dictated on workstation # [id number]
[2018-03-18] MEDS ORDERED: LIDOCAINE 1% INJ 20 ML 20 ML VIAL ONE (21:53)
--- NOTE | 2018-03-18 21:53 | Diagnostic Imaging Report ---
INDICATION: Fever. COMPARISON: Chest radiograph of earlier same day at 8:48 PM and two-view chest of 08/15/2017. FINDINGS: New ill-defined airspace consolidations in the right upper lobe are present. No pleural effusion or pneumothorax. Heart is normal in size. Normal pulmonary vasculature. IMPRESSION: PA and lateral chest radiograph confirms right upper lobe opacities which are most compatible with pneumonia given patient's fever. Dictated by: Dictated on workstation # [id number]
[2018-03-18] MEDS ORDERED: LIDOCAINE PF 1% 5 ML (XYLOCAINE) AMP ONE ×2 (21:55→21:56)
[2018-03-18] MEDS ORDERED: MIDAZOLAM 5 MG/5 ML (VERSED) VIAL IVP ONE (22:00)
--- NOTE | 2018-03-18 22:42 | Anesthesia-Procedure Note ---
Procedures/Interventions Procedure Start/Stop/Diagnosis Date of Procedure: Mar 18, 2018 Start Time: 22:00 Referring Physician: Jc Preprocedural Diagnosis: Migraine Brief History Called to ER for LP of 37 y/o with c/o H/A x [address] negative. ASA 2 HX obtained from pt and chart. Pt lateral in bed with mask on. Consent obtained after explaining procedure and risks. Pt expressed reservations about procedure initially but elected to proceed. Pt received a liter of IVF pre procedure and was given 2 mg of Versed by RN for anxiety. Pt turned self left lateral and prepped in sterile technique. Local injected at L4-5 for a total of 5 cc. Unable to palpate any vertebral spaces. Attempted x3 without success. Pt had trouble holding still and could not tolerate needle redirection despite injecting more local. Pt elected to stop procedure after the third attempt. Risks of not completing LP explained and pt elected to stop. Procedure aborted. Stop Time: 22:25 Postprocedural Diagnosis: Migraine Lumbar Puncture Discussed Risk,Benefits: Yes Patient Consents: Yes Position: Lying, L4-5, Left Sterile Technique: Yes Spinal Needle Used: 22g AutoShag 3 1/2 inch Other Comment: Procedure Aborted SURESH ARNOLD CRNA Mar 18, 2018 22:42
[2018-03-18] MEDS ORDERED: cefTRIAXone FOR IV USE 1,000 MG in NS (IVPB) 50 ML IV ONE (23:00)
[2018-03-18 23:30] VITALS: BP 121/64
[2018-03-18] MEDS ORDERED: ONDANSETRON 4 MG/2 ML (SDV) Z0FRAN IV PRN (23:45)
[2018-03-18] MEDS ORDERED: ACETAMINOPHEN 325 MG TABLET PO PRN (23:45)
[2018-03-19] MEDS: ACET/BUTAL/CAFF (FIORICET) TAB PO PRN ×2 (00:15→09:10)
[2018-03-19] MEDS: NS IV 1000 ML 1,000 ML IV SCH ×2 (00:16→08:01)
[2018-03-19 04:50] VITALS: BP 122/58
[2018-03-19 05:14] LABS: BASOPHILS % (AUTO) 0 % (0-10); EOSINOPHILS # (AUTO) 0.3 10^3/uL (0.0-0.3); EOSINOPHILS % (AUTO) 2 % (0-10); HEMATOCRIT 30 % (35-52); HEMOGLOBIN 9.5 G/DL (11.5-16.0); LYMPHOCYTES # (AUTO) 2.9 X 10^3 (1.0-4.0); LYMPHOCYTES % (AUTO) 18 % (12-44); MEAN CORPUSCULAR HEMOGLOBIN 29 PG (25-34); MEAN CORPUSCULAR HGB CONC 31 G/DL (32-36); MEAN CORPUSCULAR VOLUME 92 FL (80-99); MEAN PLATELET VOLUME 10.7 FL (7.4-10.4); MONOCYTES # (AUTO) 0.8 X 10^3 (0.0-1.0); MONOCYTES % (AUTO) 5 % (0-12); NEUTROPHILS # (AUTO) 12.3 X 10^3 (1.8-7.8); NEUTROPHILS % (AUTO) 75 % (42-75); PLATELET COUNT 332 10^3/uL (130-400); RED CELL DISTRIBUTION WIDTH 16.8 % (10.0-14.5); WHITE BLOOD COUNT 16.3 10^3/uL (4.3-11.0)
[2018-03-19] MEDS ORDERED: FLU QUADRIvalent (5+ YOA) 2018-2019 (AFLURIA) 0.5 ML IM ONE (07:30)
[2018-03-19 08:35] VITALS: BP 116/68
[2018-03-19] MEDS ORDERED: CYCL10TA9 PO (09:07)
[2018-03-19] MEDS ORDERED: DULO60CA58 PO (09:07)
[2018-03-19] MEDS ORDERED: BUTA1TAB9 PO (09:07)
[2018-03-19] MEDS ORDERED: NAPR-1071 PO (09:07)
[2018-03-19] MEDS ORDERED: NICOTINE 21 MG (NICODERM) PATCH TD SCH (09:15)
[2018-03-19] MEDS ORDERED: HYDR-700 PO (09:16)
[2018-03-19] MEDS ORDERED: ASPI-789 PO (09:17)
[2018-03-19 12:00] VITALS: BP 116/54
[2018-03-19] MEDS ORDERED: PRD10T PO (13:09)
[2018-03-19] MEDS ORDERED: TPR25T PO (13:09)
[2018-03-19] MEDS ORDERED: SMTR50T PO (13:09)
[2018-03-19] MEDS ORDERED: DOXY100T2 PO (13:15)
[2018-03-19] MEDS ORDERED: SUMAtriptan 6 MG/0.5 ML (IMITREX) INJ SQ NR (13:17)
[2018-03-19] MEDS ORDERED: predniSONE 20 MG TAB PO NR (13:18)
[2018-03-19] MEDS ORDERED: NS 250 ML (IVPB) BAG IV ONE (14:45)
[2018-03-19] MEDS ORDERED: IOHEXOL 350 MG/ML 100 ML (OMNIPAQUE 350) VIAL IV ONE (14:45)
--- NOTE | 2018-03-19 15:30 | Diagnostic Imaging Report ---
PROCEDURE: CT abdomen and pelvis with and without contrast. TECHNIQUE: Precontrast acquisitions were acquired through the abdomen and pelvis. Multiple contiguous axial images were obtained through the abdomen and pelvis after the administration of intravenous contrast. INDICATION: Hematuria. Fever. COMPARISON: 08/05/2017. FINDINGS: Included portions of the lung bases show subtle partially visualized groundglass density within the included portions of the left lower lobe (image one, series 2 and 3). CT ABDOMEN: Normal appendix is identified. Small bowel loops are nondistended. No renal or ureter calculi are seen on either side. Additionally, there is no hydroureteronephrosis or other evidence of obstruction. No renal parenchymal masses are identified. The adrenal glands, spleen, pancreas, and liver have a normal CT appearance. There is no loculated fluid collection, free fluid, nor free air within the abdomen. No abnormal mesenteric or retroperitoneal adenopathy is seen. Bony structures show no acute abnormalities. CT PELVIS: Prominent left ovarian follicle is identified and measures 2.4 cm in diameter. There is small amount of free fluid within the pelvis. There is no loculated fluid collection or free air. No abnormal lymph nodes are identified. Bony structures show no acute abnormalities. IMPRESSION: 1. Partially visualized groundglass densities within the included portions of the left lower lobe. Findings may be on the basis of underlying infiltrate. Continued followup with chest radiographs is recommended. 2. Small amount of free fluid within the pelvis; possibly physiologic. 3. Prominent left ovarian follicle. Dictated by: Dictated on workstation # [id number]
[2018-03-19 16:13] VITALS: BP 136/75
[2018-03-19 16:50] VITALS: BP 136/75
--- NOTE | 2018-03-19 21:25 | Discharge Instructions ---
Discharge [facility] Discharge Medications New Medications: Doxycycline Hyclate (Doxycycline Hyclate) 100 Mg Tablet 100 MG PO BID, #14 TAB 0 Refills Sumatriptan Succinate (Imitrex) 50 Mg Tab 50 MG PO UD, #8 TAB 0 Refills Take at onset of headache, may repeat x 1 in 2 hours if headache persists. Topiramate (Topamax) 25 Mg Tablet 25 MG PO UD for 30 Days, #60 TAB Start one tab at bedtime x 7 days, then increase to BID. Prednisone (Prednisone) 10 Mg Tab 0 PO UD, #21 TAB 0 Refills Take 6 tabs (60mg) daily, decrease by 1 tab (10mg) daily. Continued Medications: Aspirin/Acetaminophen/Caffeine (Excedrin Migraine Caplet) 1 Each Tablet 1 TAB PO BID PRN for HEADACHE, TAB Cyclobenzaprine HCl (Cyclobenzaprine HCl) 10 Mg Tablet 10 MG PO TID PRN for MUSCLE SPASMS, TAB Naproxen (Naprosyn) 500 Mg Tablet 500 MG PO BID PRN for PAIN-MILD, TAB Discontinued Medications: Butalb/Acetaminophen/Caffeine (Qjaook-Zydajdpt-Xomg 50-325-40) 1 Each Tablet 1-2 TAB PO Q6H PRN for HEADACHE, TAB Duloxetine HCl (Duloxetine HCl) 60 Mg Capsule.dr 60 MG PO DAILY, CAP LAST FILLED #30 01-30-18 Hydroxyzine HCl (Hydroxyzine HCl) 25 Mg Tablet 25 MG PO BID PRN for ANXIETY, TAB LAST FILLED #30 01-30-18 Activity & Diet Discharge Diet: Regular Diet Activity as Tolerated: Yes LINH TOPETE MD Mar 19, 2018 13:14
--- NOTE | 2018-03-19 21:32 | Short Stay Summary ---
History of Present Illness History of Present Illness Reason for visit/HPI 37 yo female had migraine persistent for 2 weeks, was seen in ER for the headache and had mild improvement, but persisted and she ran out of [employer] script in a few days and returned to ER. She notes chills last night. She does also state she had some chest discomfort last night in ER but not any longer. She denies vision changes or numbness/tingling associated with her headache. However, she does have severe burning/throbbing pain in left foot and sometimes right foot which she states she has been seen for at clinic and has tried gabapentin, Cymbalta and hydrocodone without much benefit. She was to see Neurology but cannot afford it. She has had headaches like this for about 10 years. She denies neck pain. She states her headaches are pounding, can be unilateral or complete head. She does have photophobia but not typically nausea. She is under a lot of stress with her teenage son who has been destroying property to get his way and they have been working [employer]. She used to take "zannies" which helped but the providers she sees currently will not prescribe. She states hydroxyzine does not help. She is in the process of getting a new therapist. Date of Admission Mar 18, 2018 at 22:38 Date of Discharge Mar 19, 2018 at 16:40 Time Seen by Provider: 11:45 Attending Physician Linh Benitez MD Admitting Physician [place] Allergies and Home Medications Allergies Coded Allergies: No Known Drug Allergies (Unverified , 08/15/17) Home Medications Aspirin/Acetaminophen/Caffeine 1 Each Tablet, 1 TAB PO BID PRN for HEADACHE, ( Reported) Cyclobenzaprine HCl 10 Mg Tablet, 10 MG PO TID PRN for MUSCLE SPASMS, (Reported) Doxycycline Hyclate 100 Mg Tablet, 100 MG PO BID Prescribed by: LINH BENITEZ on 03/19/18 1315 Naproxen 500 Mg Tablet, 500 MG PO BID PRN for PAIN-MILD, (Reported) Prednisone 10 Mg Tab, 0 PO UD Take 6 tabs (60mg) daily, decrease by 1 tab (10mg) daily. Prescribed by: LINH BENITEZ on 03/19/18 1309 Sumatriptan Succinate 50 Mg Tab, 50 MG PO UD Take at onset of headache, may repeat x 1 in 2 hours if headache persists. Prescribed by: LINH BENITEZ on 03/19/18 1309 Topiramate 25 Mg Tablet, 25 MG PO UD Start one tab at bedtime x 7 days, then increase to BID. Prescribed by: LINH BENITEZ on 03/19/18 1309 Patient Home Medication List Home Medication List Reviewed: Yes Past Vawlniu-Ofwvwj-Vtxoyf Hx Patient Social History Alcohol Use: Denies Use Recreational Drug Use: No Smoking Status: Current Everyday Smoker Type Used: Cigarettes 2nd Hand Smoke Exposure: No Physical Abuse Screen: No Sexual Abuse: No Recent Foreign Travel: No Contact w/other who traveled: No Recent Hopitalizations: No Recent Infectious Disease Expo: No Immunizations Up To Date Tetanus Booster (TDap): Unknown Seasonal Allergies Seasonal Allergies: No Surgeries Yes (5 C-SECTIONS) Section Respiratory No Cardiovascular No Neurological Yes Headaches /Migraines Reproductive System Last Menstrual Period: Feb 18, 2018 Hx Reproductive Disorders: No Sexually Transmitted Disease: No Female Reproductive Disorders: Denies Genitourinary No UTI-Chronic Gastrointestinal No Musculoskeletal Yes Arthritis, Chronic Back Pain Endocrine History of Endocrine Disorders: No HEENT History of HEENT Disorders: No Cancer No Psychosocial History of Psychiatric Problem: No Integumentary History of Skin or Integumenta: Yes (Chronic dermatitis of the hands) Blood Transfusions History of Blood Disorders: No Adverse Reaction to a Blood Tr: No Family Medical History Significant Family History: No Pertinent Family Hx Family Hx: Family history: Hypertension 19 MOTHER Review of Systems Constitutional: see HPI EENTM: No nose congestion, No throat pain Respiratory: No cough Cardiovascular: see HPI Gastrointestinal: No diarrhea, No nausea, No vomiting Genitourinary: no symptoms reported Musculoskeletal: no symptoms reported Skin: no symptoms reported Physical Exam Vital Signs Vital Signs - First Documented 03/18/18 03/18/18 03/18/18 19:50 23:15 23:30 Temp 100.2 Pulse 115 Resp 19 B/P (MAP) 128/76 (93) Pulse Ox 98 O2 Delivery Room Air Capillary Refill : Less Than 3 Seconds Height, Weight, BMI Height: 5'1.00" Weight: 197lbs. 4.0oz. 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 Given ceftriaxone inpatient, discharged with doxycycline. Intractable migraine- suspect also contribution of medication overuse given the rapid use of fioricet. Will try prednisone taper while trying to minimize frequency of abortive medications. Will try sumatriptan for abortive therpay and start topirimate for prevention. Pneumonia- see fever diagnosis Anxiety- no medication changes, encouraged to see therapy and discussed contribution of stress to recurrent headahces Hematuria- microscopic and reporting not near menstrual cycle. CT abdomen/pelvis with unremarkable kidneyes and ureters without stones. Conclusion Labs Laboratory Tests 03/18/18 22:49: Lactic Acid Level 1.21 03/19/18 04:44: White Blood Count 16.3H, Red Blood Count 3.30L, Hemoglobin 9.5L, Hematocrit 30L , Mean Corpuscular Volume 92, Mean Corpuscular Hemoglobin 29, Mean Corpuscular Hemoglobin Concent 31L, Red Cell Distribution Width 16.8H, Platelet Count 332, Mean Platelet Volume 10.7H, Neutrophils (%) (Auto) 75, Lymphocytes (%) (Auto) 18 , Monocytes (%) (Auto) 5, Eosinophils (%) (Auto) 2, Basophils (%) (Auto) 0, Neutrophils # (Auto) 12.3H, Lymphocytes # (Auto) 2.9, Monocytes # (Auto) 0.8, Eosinophils # (Auto) 0.3, Basophils # (Auto) 0.0 03/19/18 11:00: Glucometer 133H Microbiology 03/18/18 Blood Culture - Preliminary, Resulted No growth 03/18/18 Throat Culture - Preliminary, Resulted No Beta Strep isolated Conclusion/Plan see final discharge diagnosis LINH BENITEZ MD Mar 19, 2018 21:32
[2018-03-19] MEDS ORDERED: cefTRIAXone 1 GM/NS 50 ML IVPB IV SCH ×2 (23:00)
[2018-03-20] MEDS ORDERED: NICOTINE PATCH REMOVAL TP SCH (08:59)
== END 2018-03-19 13:09 | disposition home or self-care (01) ==
LOC: EDUNIT# 19:43 → ER 19:44 → 4TH 22:38 → UNDOADMOB 22:38 → 4TH 23:30 → UNDODISOB 03-19 16:40
PROVIDERS: ADMIT Family Medicine; ATTEND Family Medicine
DX: J18.9 Pneumonia, unspecified organism (principal); G43.919 Migraine, unspecified, intractable, without status migrainosus; R31.9 Hematuria, unspecified; F41.9 Anxiety disorder, unspecified; L30.9 Dermatitis, unspecified; F17.210 Nicotine dependence, cigarettes, uncomplicated; Z53.20 Procedure and treatment not carried out because of patient's decision for unspecified reasons; Z87.440 Personal history of urinary (tract) infections
CPT/HCPCS: 36415; 70450; 71045; 71046; 74178; 80053; 80306; 81000; 82962; 83605; 84703; 85007; 85025; 85027; 86308; 87040; 87430; 87804; G0378

== ENCOUNTER 2018-08-06 21:28 | Emergency (ER) | payer OTHER ==
[~2018-08-06] VITALS: Ht 154.9 cm; Wt 80.7 kg
[2018-08-06 22:48] VITALS: BP 119/68
--- NOTE | 2018-08-06 22:53 | ED Headache ---
General Stated Complaint: TINGLING FACE, MIGRAINE Source: patient Exam Limitations: no limitations History of Present Illness Date Seen by Provider: Aug 06, 2018 Time Seen by Provider: 22:52 Initial Comments To ER with a global headache of 3 weeks duration. This is similar to previous migraines however it will not go away. She was recently started on Topamax which does not seem to be helping. No fevers or chills. She states a cocktail of injections usually helps with her migraines. Timing/Duration: other (3 weeks) Severity/Quality: constant Location: global Prior Headaches/Recent Trauma: frequent headaches, chronic headaches Associated Symptoms: No confusion Allergies and Home Medications Allergies Coded Allergies: No Known Drug Allergies (Unverified , 08/15/17) Home Medications Aspirin/Acetaminophen/Caffeine 1 Each Tablet, 1 TAB PO BID PRN for HEADACHE, ( Reported) Cyclobenzaprine HCl 10 Mg Tablet, 10 MG PO TID PRN for MUSCLE SPASMS, (Reported) Doxycycline Hyclate 100 Mg Tablet, 100 MG PO BID Prescribed by: LINH TOPETE on 03/19/18 1315 Naproxen 500 Mg Tablet, 500 MG PO BID PRN for PAIN-MILD, (Reported) Prednisone 10 Mg Tab, 0 PO UD Take 6 tabs (60mg) daily, decrease by 1 tab (10mg) daily. Prescribed by: LINH TOPETE on 03/19/18 1309 Sumatriptan Succinate 50 Mg Tab, 50 MG PO UD Take at onset of headache, may repeat x 1 in 2 hours if headache persists. Prescribed by: LINH TOPETE on 03/19/18 1309 Topiramate 25 Mg Tablet, 25 MG PO UD Start one tab at bedtime x 7 days, then increase to BID. Prescribed by: LINH TOPETE on 03/19/18 1309 Patient Home Medication List Home Medication List Reviewed: Yes Review of Systems Review of Systems Constitutional: see HPI Eyes: No Symptoms Reported Ears, Nose, Mouth, Throat: no symptoms reported Respiratory: no symptoms reported Cardiovascular: no symptoms reported Genitourinary: no symptoms reported Musculoskeletal: no symptoms reported Skin: no symptoms reported Psychiatric/Neurological: Headache Past Hsrysfj-Pdyyon-Zosrdv Hx Patient Social History Type Used: Cigarettes 2nd Hand Smoke Exposure: No Recent Foreign Travel: No Contact w/Someone Who Travel: No Recent Hopitalizations: No Immunizations Up To Date Tetanus Booster (TDap): Unknown Seasonal Allergies Seasonal Allergies: No Past Medical History Surgeries: Yes (5 C-SECTIONS) Section Respiratory: No Cardiac: No Neurological: Yes Headaches /Migraines Reproductive Disorders: No Female Reproductive Disorders: Denies Sexually Transmitted Disease: No Genitourinary: No UTI-Chronic Gastrointestinal: No Musculoskeletal: Yes Arthritis, Chronic Back Pain Endocrine: No HEENT: No Cancer: No Psychosocial: No Integumentary: Yes (Chronic dermatitis of the hands) Blood Disorders: No Adverse Reaction/Blood Tranf: No Family Medical History Family history: Hypertension 19 MOTHER No Pertinent Family Hx Physical Exam Vital Signs Capillary Refill : Height, Weight, BMI Height: 5'1.00" Weight: 197lbs. 4.0oz. 89.453683cl; 37.3 BMI Method:Stated General Appearance: WD/WN, no apparent distress HEENT: PERRL/EOMI, normal ENT inspection, TMs normal Neck: non-tender, full range of motion Cardiovascular: regular rate, rhythm, no murmur Respiratory: normal breath sounds, no respiratory distress, no accessory muscle use Gastrointestinal: normal bowel sounds, non tender, soft Psychiatric: alert, oriented x 3 Crainal Nerves: normal hearing, normal speech, PERRL Coordination/Gait: normal gait Skin: normal color, warm/dry Comments GCS 15, alert and oriented, no distress. Progress/Results/Core Measures Results/Orders My Orders Orders - SRIDHAR ORTIZ APRN Ketorolac Injection (Toradol Injection) (08/06/18 23:00) Prochlorperazine Injection (Compazine In (08/06/18 23:00) Diphenhydramine Injection (Benadryl Inje (08/06/18 23:00) Departure Impression Primary Impression: Headache Qualified Codes: R51 - Headache Disposition: 01 HOME, SELF-CARE Condition: Stable Departure-Patient Inst. Decision time for Depature: 22:53 Referrals: [facility] (PCP/Family) Primary Care Physician Patient Instructions: HEADACHE Add. Discharge Instructions: 1. Follow-up with primary care 2. Return to ER for any concerns Work/School Note: Work Release Form Date Seen in the Emergency Department: Aug 06, 2018 Return to Work: Aug 08, 2018 SRIDHAR ORTIZ APRN Aug 06, 2018 22:53
[2018-08-06] MEDS ORDERED: KETOROLAC 60 MG/2 ML VIAL IM ONE (23:00)
[2018-08-06] MEDS ORDERED: PROCHLORPERAZINE 10 MG/2ML INJ (COMPAZINE) IM ONE (23:00)
[2018-08-06] MEDS ORDERED: diphenhydrAMINE 50 MG/ML INJ (BENADRYL) IM ONE (23:00)
--- OUTSIDE RECORDS SUMMARY | 2018-08-09 04:32 | XMS REPORT ---
Author Author BANDAR CESAR Organization [facility] Address [address] [place] [address] Care Team Providers Care Armor Reconnaissance Specialist Name Role Phone BANDAR CESAR Unavailable PROBLEMS Type Condition ICD9-CM Code [id number] Code Onset Dates Condition Status SNOMED Code Problem Bilateral low back pain without sciatica M54.5 Active 118966173 Problem Muscle spasm of back M62.830 Active 542166225 Problem Anxiety F41.9 Active 75638360 Problem Irregular periods/menstrual cycles N92.6 Active 65330857 Problem Leukocytosis, unspecified type D72.829 Active 349956760 Problem Amenorrhea N91.2 Active 72835615 Problem Intractable migraine without status migrainosus, unspecified migraine type G43.919 Active 936690330 Problem Paresthesia of skin R20.2 Active 05075917 ALLERGIES No Information ENCOUNTERS Encounter Location Date Diagnosis [facility] [address] [address] Apr, [facility] [address] [place] [id number] [place] [phone] Apr, [facility] [id number] [place] [address] Mar, Irregular periods/menstrual cycles N92.6 ; Anxiety F41.9 ; Bilateral low back pain without sciatica M54.5 ; Muscle spasm of back M62.830 and Intractable migraine without status migrainosus, unspecified migraine type G43.919 [facility] [id number] [place] [address] Mar, Pneumonia of both upper lobes due to infectious organism J18.1 [facility] [address] [address] Mar, Intractable migraine without status migrainosus, unspecified migraine type G43.919 and Missed period N92.6 [place] [address] [address] Dec, [place] [address] [address] Nov, Lumbago with sciatica, right side M54.41 ; Lumbago with sciatica, left side M54.42 ; Other chronic pain G89.29 ; Paresthesia of skin R20.2 ; Pain in unspecified limb M79.609 ; Other obesity due to excess calories E66.09 and Body mass index (BMI) of 36.0-36.9 in adult Z68.36 [facility] [address] [address] Aug, Abdominal pain R10.9 and Leukocytosis, unspecified type D72.829 [facility] [address] [address] Jul, 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 [facility] [address] [address] 08 Jul, 2017 Amenorrhea N91.2 and Abdominal pain R10.9 [place] [address] [address] Aug, [place] [address] [address] May, [facility] [address] [id number] Feb, Dental examination Z01.20 [facility] [address] [id number] Jan, Dental examination Z01.20 [facility] [address] [id number] Jan, Dental examination Z01.20 [facility] [address] [id number] Dec, Dental examination Z01.20 [facility] [address] [place] [address] Dec, Dental caries, unspecified K02.9 [facility] [address] [id number] Nov, Dental examination Z01.20 [facility] [id number] [place] [address] Jun, Bilateral low back pain without sciatica M54.5 [facility] [id number] [place] [id number] Jun, [facility] [id number] [place] [id number] Jun, Bilateral low back pain without sciatica M54.5 and Muscle spasm of back M62.830 [facility] [address] [id number] Jan, Dental examination V72.2 [facility] [id number] [place] [address] Sep, [facility] [address] [place] [address] Sep, [facility] [address] [place] [id number] Jul, [facility] [address] [place] [id number] Jul, [facility] [id number] [place] [id number] Nov, [facility] [id number] [place] [id number] Nov, [facility] [address] [place] [id number] Nov, [facility] [place] [facility] [address] [id number] [place] [address] Nov, [facility] [place] [facility] [address] [id number] [place] [address] Nov, [facility] [place] [facility] [address] [id number] [place] [address] Nov, [facility] [place] [facility] [address] [id number] [place] [address] May, [facility] [place] [facility] [address] [id number] [place] [address] May, [facility] [place] [facility] [address] [id number] [place] [address] May, [facility] [place] [facility] [address] [id number] [place] [address] Mar, [facility] [place] [facility] [address] [id number] [place] [address] Mar, [facility] [place] [facility] [address] [id number] [place] [address] Mar, [facility] [place] [facility] [address] [id number] [place] [address] Mar, [facility] [place] [facility] [address] [id number] [place] [address] Mar, [facility] [place] [facility] [address] [id number] [address] Nov, [facility] [place] [facility] [address] [id number] [place] [address] Nov, [facility] [place] [facility] [address] [id number] [place] [address] October, [facility] [place] [facility] [address] [id number] [place] [address] October, [facility] [place] [facility] [address] [id number] [place] [address] Sep, [facility] [address] [facility] [id number] [place] [address] Jul, [facility] [address] [facility] [id number] [address] Jul, 2012 IMMUNIZATIONS No Known Immunizations SOCIAL HISTORY Never Assessed REASON FOR VISIT Medicaton question PLAN OF CARE VITAL SIGNS MEDICATIONS Unknown Medications RESULTS No Results PROCEDURES No Known procedures INSTRUCTIONS MEDICATIONS ADMINISTERED No Known Medications MEDICAL (GENERAL) HISTORY Type Description Date Medical History Anxiety Surgical History sectionx5 Hospitalization History Kidney infection Hospitalization History infecton of some sort. admittion to
--- OUTSIDE RECORDS SUMMARY | 2018-08-09 04:32 | XMS REPORT ---
Author Author BANDAR CESAR [facility] Address [address] [place] [address] Care Team Providers Care Pit Manager Name Role Phone BANDAR CESAR Unavailable PROBLEMS Type Condition ICD9-CM Code MEF80-LB Code Onset Dates Condition Status SNOMED Code Problem Bilateral low back pain without sciatica M54.5 Active 670238093 Problem Muscle spasm of back M62.830 Active 990118697 Problem Anxiety F41.9 Active 46081224 Problem Irregular periods/menstrual cycles N92.6 Active 39597686 Problem Leukocytosis, unspecified type D72.829 Active 990292926 Problem Amenorrhea N91.2 Active 60622389 Problem Intractable migraine without status migrainosus, unspecified migraine type G43.919 Active 348060604 Problem Paresthesia of skin R20.2 Active 83267691 ALLERGIES No Known Allergies ENCOUNTERS Encounter Location Date Diagnosis [place] [id number] [place] [address]84- 1727 Mar, Irregular periods/menstrual cycles N92.6 ; Anxiety F41.9 ; Bilateral low back pain without sciatica M54.5 ; Muscle spasm of back M62.830 and Intractable migraine without status migrainosus, unspecified migraine type G43.919 [place] [id number] [place] [address]2508- [address]223 Mar, Pneumonia of both upper lobes due to infectious organism J18.1 [place] [address] [place] [address] 41666- 0400 Mar, Intractable migraine without status migrainosus, unspecified migraine type G43.919 and Missed period N92.6 [place] [address] [place] [address] 13614- 0621 Dec, [facility] [id number] [place] [address]170- [address] 18 Nov, 2017 Lumbago with sciatica, right side M54.41 ; Lumbago with sciatica, left side M54.42 ; Other chronic pain G89.29 ; Paresthesia of skin R20.2 ; Pain in unspecified limb M79.609 ; Other obesity due to excess calories E66.09 and Body mass index (BMI) of 36.0-36.9 in adult Z68.36 [facility] [address] [address] 04 Aug, 2017 Abdominal pain R10.9 and Leukocytosis, unspecified type D72.829 [facility] [address] [address] 20 Jul, 2017 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 [facility] [address] [address] 08 Jul, 2017 Amenorrhea N91.2 and Abdominal pain R10.[address] [address] Aug, [address] [address] May, [facility] [id number] [place] [address] [id number] Feb, Dental examination Z01.20 [facility] [address] [id number] Jan, Dental examination Z01.20 [facility] [address] [id number] Jan, Dental examination Z01.20 [facility] [address] [id number] Dec, Dental examination Z01.20 [facility] [address] [address] Dec, Dental caries, unspecified K02.9 [facility] [address] [id number] Nov, Dental examination Z01.20 [facility] [address] [facility] [id number] [address] Jun, Bilateral low back pain without sciatica M54.5 [facility] [address] [place] [address]15- 4758 Jun, [facility] [address] [facility] [id number] [place] [address] 43753- 2640 Jun, Bilateral low back pain without sciatica M54.5 and Muscle spasm of back M62.830 [facility] [address] [id number] Jan, Dental examination V72.2 [facility] [id number] [place] [address]00- 5537 Sep, [facility] [address] [place] [address]14- 4347 Sep, [facility] [address] [place] [address] 61670- 2977 Jul, [facility] [id number] [address] 9[address] Jul, [facility] [id number] [address] Nov, [facility] [address] [facility] [id number] [place] [address] 2549 Nov, [facility] [address] [facility] [id number] [place] [address]9890- 9726 Nov, [facility] [address] [id number] [address] Nov, [facility] [address] [place] [address] 22850- 3737 Nov, [facility] [place] [facility] [address] [id number] [place] [address] Nov, [facility] [place] [facility] [address] [id number] [place] [address]- 355[address] May, [facility] [place] [facility] [address] [id number] [place] [address]- 2549 May, [facility] [place] [facility] [address] [id number] [place] [address] 2540 May, [facility] [place] [facility] [address] [id number] [place] [address]- 2510 Mar, [facility] [place] [facility] [address] [id number] [place] [address]- 4511 Mar, [facility] [place] [facility] [address] [id number] [place] [address]- 6549 Mar, [facility] [place] [facility] [address] [id number] [place] [address]- 7243 Mar, [facility] [place] [facility] [address] [id number] [place] [address]- 4848 Mar, [facility] [place] [facility] [address] [id number] [place] [address]- 6952 Nov, [facility] [place] [facility] [address] [id number] [place] [address]- 9384 Nov, [facility] [place] [facility] [address] [id number] [place] [address] 2546 October, [facility] [place] [facility] [address] [id number] [place] [address]- 3047 October, [facility] [place] [facility] [address] [id number] [place] [address]- 4186 Sep, [facility] [place] [facility] [address] [id number] [place] [address]- 2540 Jul, [facility] [place] [facility] [address] [id number] [place] [address] Jul, IMMUNIZATIONS No Known Immunizations SOCIAL HISTORY Never Assessed REASON FOR VISIT Establish Care--tcuppettRN PLAN OF CARE Activity Details Follow Up 6 Months, prn Reason:routine f/u VITAL SIGNS Height 60 in 2018-04-08 Weight 186.2 lbs 2018-04-08 Temperature 97.6 degrees Fahrenheit 2018-04-08 Heart Rate 92 bpm 2018-04-08 Respiratory Rate 20 2018-04-08 BMI 36.36 kg/m2 2018-04-08 Blood pressure systolic 124 mmHg 2018-04-08 Blood pressure diastolic 78 mmHg 2018-04-08 MEDICATIONS Medication Instructions Dosage Frequency Start Date End Date Duration Status Sumatriptan Succinate 50 mg Orally on onset of headache and may repeat with in two hours if headache persists 1 tablet as needed. Maximum 100mg daily. 30 days Active Lorazepam 0.5 MG Orally 2 times a day 1 tablet as needed 12h Mar, 7 days Active Cephalexin 500 mg Orally 4 times a day 1 capsule 6h Active Topiramate 25 mg Orally once a day at bedtime 1 tablet 30 days Active Flexeril 10 mg Orally 2 times a day 1 tablet 12h Apr, 30 days Active Naproxen 500 mg Orally every 12 hrs 1 tablet as needed 12h Apr, 30 days Active RESULTS No Results PROCEDURES No Known procedures INSTRUCTIONS MEDICATIONS ADMINISTERED No Known Medications MEDICAL (GENERAL) HISTORY Type Description Date Medical History Anxiety Surgical History sectionx5 Hospitalization History Kidney infection Hospitalization History infecton of some sort. admittion to
--- OUTSIDE RECORDS SUMMARY | 2018-08-09 04:32 | XMS REPORT ---
Author Author SAHARA RODRIGUEZ [facility] Address [address] [place] [address] Care Team Providers Care Boiler Setter Name Role Phone SAHARA RODRIGUEZ Unavailable PROBLEMS Type Condition ICD9-CM Code CWZ35-BM Code Onset Dates Condition Status SNOMED Code Problem Bilateral low back pain without sciatica M54.5 Active 704209500 Problem Leukocytosis, unspecified type D72.829 Active 953963058 Problem Amenorrhea N91.2 Active 61027486 Problem Muscle spasm of back M62.830 Active 887499864 Problem Major depressive disorder, recurrent, moderate F33.1 Active 16432789 Problem Generalized anxiety disorder F41.1 Active 05103674 Problem Intractable migraine without status migrainosus, unspecified migraine type G43.919 Active 334909846 Problem Paresthesia of skin R20.2 Active 58060390 Problem Anxiety F41.9 Active 78575974 Problem Irregular periods/menstrual cycles N92.6 Active 10402459 ALLERGIES No Information ENCOUNTERS Encounter Location Date Diagnosis [facility] [id number] [place] [address]2864- 5946 Jun, [facility] [id number] [place] [address] 95515- 9843 Jun, [facility] [id number] [place] [address] 17235- 3647 May, [facility] [id number] [place] [address] 49859- 9660 Apr, Generalized anxiety disorder F41.1 and Major depressive disorder, recurrent, moderate F33.1 [facility] [id number] [place] [address]277 Apr, [facility] [address] [address]- [address] Mar, Irregular periods/menstrual cycles N92.6 ; Anxiety F41.9 ; Bilateral low back pain without sciatica M54.5 ; Muscle spasm of back M62.830 and Intractable migraine without status migrainosus, unspecified migraine type G43.919 [place] [id number] [place] [address] 43033- 5994 Mar, Pneumonia of both upper lobes due to infectious organism J18.1 [place] [address] [address]- [address] Mar, Intractable migraine without status migrainosus, unspecified migraine type G43.919 and Missed period N92.6 [place] [address] 64015- 6411 Dec, [place] [address] 19573- 77[address] Nov, Lumbago with sciatica, right side M54.41 ; Lumbago with sciatica, left side M54.42 ; Other chronic pain G89.29 ; Paresthesia of skin R20.2 ; Pain in unspecified limb M79.609 ; Other obesity due to excess calories E66.09 and Body mass index (BMI) of 36.0-36.9 in adult Z68.36 [facility] [address] [address] Aug, Abdominal pain R10.9 and Leukocytosis, unspecified type D72.829 [facility] [place] [id number] [place] [address]38 -[address]99 Jul, 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 [facility] [address] [address] 08 Jul, 2017 Amenorrhea N91.2 and Abdominal pain R10.[address] [address]- [address] Aug, [facility] [address] [id number], [place] [address] May, [facility] [id number] [place] [address] [id number] Feb, Dental examination Z01.20 [facility] [id number] [place] [address] [id number] Jan, Dental examination Z01.20 [facility] [id number] [place] [address] [id number] Jan, Dental examination Z01.20 [facility] [address] [id number] [place] [address] [id number] Dec, Dental examination Z01.20 [facility] [id number] [place] [address]45 -5700 Dec, Dental caries, unspecified K02.9 [facility] [address] [id number] [place] [address] [id number] Nov, Dental examination Z01.20 [facility] [id number] [place] [address] 82907- 2625 Jun, Bilateral low back pain without sciatica M54.5 [facility] [id number] [place] [address] 64532- 1730 Jun, [facility] [address] [id number] [place] [address] 69572- 5652 Jun, Bilateral low back pain without sciatica M54.5 and Muscle spasm of back M62.830 [facility] [address] [place] [address] [id number] Jan, Dental examination V72.2 [facility] [id number] [place] [address] [id number]- 9783 14 Sep, 2014 [facility] [address] [facility] [id number] [place] [address] 37793- 8552 Sep, [facility] [id number] [place] [address] 00069- 4002 Jul, [facility] [place] [facility] [address] [id number] [place] [address]- 0970 Jul, [facility] [place] [facility] [address] [id number], [place] [address]- 2691 Nov, [facility] [place] [facility] [address] [facility] [id number] [place] [address]- 7296 Nov, [facility] [place] [facility] [address] [id number] [place] [address]- 9980 Nov, [facility] [place] [facility] [address] [id number] [place] [address]- 7253 Nov, [facility] [place] [facility] [address] [id number] [place] [address]- 7795 Nov, [facility] [place] [facility] [address] [facility] [id number], [place] [address]- 6037 Nov, [facility] [place] [facility] [address] [facility] [id number], [place] [address]- 9548 May, [facility] [place] [facility] [address] [facility] [id number], [place] [address]- 9277 May, [facility] [place] [facility] [address] [facility] [id number], [place] [address]- 3835 May, [facility] [place] [facility] [address] [facility] [id number], [place] [address]- 4139 Mar, [facility] [place] [facility] [address] [facility] [id number], [place] [address]- 1391 30 Mar, 2013 [facility] [place] [facility] [address] [facility] [id number], [place] [address]- 2058 Mar, [facility] [place] [facility] [address] [facility] [id number], [place] [address]- 4947 Mar, [facility] [place] [facility] [address] [facility] [id number], [place] [address]- 4016 Mar, [facility] [place] [facility] [address] [facility] [id number] [place] [address]- 2546 Nov, [facility] [address] [id number] [address] 6206 Nov, [facility] [address] [facility] [id number], [place] [address] 2546 October, [facility] [address] [facility] [id number], [place] [address]- 2546 October, [facility] [address] [facility] [id number], [place] [address]- 6786 Sep, [facility] [address] [id number], [place] [address]- 8696 Jul, [facility] [address] [facility] [id number], [place] [address]- 2626 Jul, IMMUNIZATIONS No Known Immunizations SOCIAL HISTORY Never Assessed REASON FOR VISIT intake PLAN OF CARE Activity Details Follow Up Next Available Reason: F/U VITAL SIGNS MEDICATIONS Medication Instructions Dosage Frequency Start Date End Date Duration Status Lorazepam 0.5 MG Orally 2 times a day 1 tablet as needed 12h Mar, 7 days Not-Taking Flexeril 10 mg Orally 2 times a day 1 tablet 12h Apr, 30 days Active Sumatriptan Succinate 50 mg Orally on onset of headache and may repeat with in two hours if headache persists 1 tablet as needed. Maximum 100mg daily. 30 days Active Cephalexin 500 mg Orally 4 times a day 1 capsule 6h Not-Taking Topiramate 25 mg Orally once a day at bedtime 1 tablet 30 days Active Naproxen 500 mg Orally every 12 hrs 1 tablet as needed 12h Apr, 30 days Active RESULTS No Results PROCEDURES Procedure Date Ordered Result Body Site Psych diagnostic evaluation, established patient May 07, 2018 INSTRUCTIONS MEDICATIONS ADMINISTERED No Known Medications MEDICAL (GENERAL) HISTORY Type Description Date Medical History Anxiety Surgical History sectionx5 Hospitalization History Kidney infection Hospitalization History infecton of some sort. admittion to
--- OUTSIDE RECORDS SUMMARY | 2018-08-09 04:34 | XMS REPORT | Continuity of Care Document ---
Author Author [facility] Ctr of [facility] C[facility] of [facility] Address Unknown Phone Unavailable Allergies Active Description Code Type Severity Reaction Onset Reported/Identified Relationship to Patient Clinical Status Yes No Known Drug Allergies [id number] Drug Allergy Mild N/A 08/15/2017 Medications There [...] MA DOA K 729.5 ARM PAIN 07/22/2012 PAULA MA DOA K 726.12 BICIPITAL TENOSYNOVITIS 07/22/2012 PAULA MA [...] ONI K V25.12 IUD REMOVAL 11/04/2012 DEYA THERAPIST'S ASSISTANT, KASSIE A V25.01 CONTRACEPTION - ORAL CONTRACEPTION 11/04/2012 DEYA THERAPIST'S ASSISTANT, KASSIE A V25.12 IUD REMOVAL 11/04/2012 MA [...] DO, ONI K 784.0 HEADACHE 03/16/2013 DEYA THERAPIST'S ASSISTANT, KASSIE A 728.85 SPASM OF MUSCLE 03/16/2013 DEYA THERAPIST'S ASSISTANT, KASSIE A 784.0 HEADACHE 03/16/2013 MA DO, ONI K 728.85 SPASM OF MUSCLE 03/16/2013 MA DO, ONI K 784.0 HEADACHE 03/24/2013 MA DO, ONI K 780.79 fatigue 03/24/2013 MA DO, NOI K 799.22 IRRITABILITY 03/24/2013 MA DO, ONI K 780.79 fatigue 03/24/2013 MA DO, ONI K 799.22 IRRITABILITY 03/24/2013 DEYA THERAPIST'S ASSISTANT, KASSIE A 780.79 fatigue 03/24/2013 KASSIE FALK [...] NEG 08/06/2017 AIME PEREZ MD Ot Z79.52 USP (CURRENT) USE OF SYSTEMIC STER 08/06/2017 AIME [...] UNSPECIFIED 08/15/2017 AIME PEREZ MD Ot Z79.52 EGG CANDLER (CURRENT) USE OF SYSTEMIC STER 08/15/2017 AIME [...] SKIN 11/22/2017 AIME PEREZ MD Ot Z79.52 EGG CANDLER (CURRENT) USE OF SYSTEMIC STER 11/22/2017 AIME [...] SKIN 11/24/2017 AIME PEREZ MD Ot Z79.52 EGG CANDLER (CURRENT) USE OF SYSTEMIC STER 11/24/2017 AIME PEREZ MD Ot Z87.2 PERSONAL HISTORY OF DISEASES OF THE SKIN 11/24/2017 AIME PEREZ MD Ot Z87.59 PERSONAL HISTORY OF COMP OF PREG, CHLDBR 03/09/2018 FELIPE DO, LEEANNE K Ot F17.210 NICOTINE DEPENDENCE, CIGARETTES, UNCOMPL 03/09/2018 FELIPE DO, LEEANNE K Ot G43.909 MIGRAINE, UNSP, NOT INTRACTABLE, WITHOUT 03/09/2018 FELIPE DO, LEEANNE K Ot Z79.52 USP (CURRENT) USE OF SYSTEMIC STER 03/09/2018 FELIPE DO, LEEANNE K Ot Z87.440 PERSONAL HISTORY OF URINARY (TRACT) INFE 03/09/2018 FELIPE DO, LEEANNE K Ot Z98.890 OTHER SPECIFIED POSTPROCEDURAL STATES 03/11/2018 FELIPE DO, LEEANNE K Ot F17.210 NICOTINE DEPENDENCE, CIGARETTES, UNCOMPL 03/11/2018 FELIPE DO, LEEANNE K Ot G43.909 MIGRAINE, UNSP, NOT INTRACTABLE, WITHOUT 03/11/2018 FELIPE DO, LEEANNE K Ot Z79.52 EGG CANDLER (CURRENT) USE OF SYSTEMIC STER 03/11/2018 FELIPE DO LEEANNE K Ot Z87.440 PERSONAL HISTORY OF URINARY (TRACT) INFE 03/11/2018 FELIPE DO, LEEANNE K Ot Z98.890 OTHER SPECIFIED POSTPROCEDURAL STATES 03/19/2018 LINH TOPETE MD Ot F17.210 NICOTINE DEPENDENCE, CIGARETTES, UNCOMPL 03/19/2018 LINH TOPETE MD Ot F41.9 ANXIETY DISORDER, UNSPECIFIED 03/19/2018 LINH TOPETE MD Ot G43.919 MIGRAINE, UNSP, INTRACTABLE, WITHOUT STA 03/19/2018 LINH TOPETE MD Ot J18.9 PNEUMONIA, UNSPECIFIED ORGANISM 03/19/2018 LINH TOPETE MD Ot L30.9 DERMATITIS, UNSPECIFIED 03/19/2018 LINH TOPETE MD Ot R31.9 HEMATURIA, UNSPECIFIED 03/19/2018 LINH TOPETE MD Ot Z53.20 PROC/TRTMT NOT CRD OUT BEC PT DECISION F 03/19/2018 LINH TOPETE MD Ot Z87.440 PERSONAL HISTORY OF URINARY (TRACT) INFE 08/07/2018 FENECH DOSACHIN Ot N83.202 UNSPECIFIED OVARIAN CYST, LEFT SIDE 08/07/2018 SACHIN ARVIZU DO S Ot 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 Procedures Code Description Performed By Performed On MATTHEW OBREGON 07/22/2012 79451 ANTIBODY SCREEN (order) 05/11/2013 88053 URINE TEST (IN- HOUSE) 05/11/2013 42032 UA OB DIP 05/11/2013 97389 CBC 05/11/2013 26146 TSH 05/11/2013 66917 HEP B SURFACE ANTIGEN (RML) 05/11/2013 86979 SYPHILLIS TEST 05/11/2013 4781777 ANTIBODY SCREEN (RESULT ONLY) 05/12/2013 33569 BLOOD TYPE/Rh FACTOR 05/12/2013 38051 HIV ANTIBODIES (RML) 05/12/2013 78514 RUBELLA ANTIBODY, IGG 05/12/2013 19486 CULTURE URINE 05/12/2013 Results Test Result Range [...] Blood anisocytosis detection by light microscopy [facility] Comprehensive metabolic panel - 08/05/17 22:10 Serum [...] 11/24/17 12:50 VITAMIN B12 304 pg/mL 200-1100 Influenza virus A and B antigen detection - 03/18/18 19:55 FLU RESULT NEGATIVE FOR INFLUENZA A AND B ANTIGENS BY IA NRG Complete blood count (CBC) with automated white blood cell (WBC) differential - 03/18/18 20:01 Blood leukocytes automated count (number/volume) 20.0 10*3/uL 4.3-11.0 Blood erythrocytes automated count (number/volume) 3.69 10*6/uL 4.35-5.85 Venous blood hemoglobin measurement (mass/volume) 11.2 g/dL 11.5-16.0 Blood hematocrit (volume fraction) 34 % 35-52 Automated erythrocyte mean corpuscular volume 92 [foz_us] 80-99 Automated erythrocyte mean corpuscular hemoglobin (mass per erythrocyte) 30 pg 25-34 Automated erythrocyte mean corpuscular hemoglobin concentration measurement ( mass/volume) 33 g/dL 32-36 Automated erythrocyte distribution width ratio 16.5 % 10.0-14.5 Automated blood platelet count (count/volume) 351 10*3/uL 130-400 Automated blood platelet mean volume measurement 10.7 [foz_us] 7.4-10.4 Automated blood neutrophils/100 leukocytes 84 % 42-75 Automated blood lymphocytes/100 leukocytes 10 % 12-44 Blood monocytes/100 leukocytes 4 % 0-12 Automated blood eosinophils/100 leukocytes 1 % 0-10 Automated blood basophils/100 leukocytes 0 % 0-10 Blood neutrophils automated count (number/volume) 16.8 10*3 1.8-7.8 Blood lymphocytes automated count (number/volume) 2.1 10*3 1.0-4.0 Blood monocytes automated count (number/volume) 0.9 10*3 0.0-1.0 Automated eosinophil count 0.2 10*3/uL 0.0-0.3 Automated blood basophil count (count/volume) 0.0 10*3/uL 0.0-0.1 Comprehensive metabolic panel - 03/18/18 20:01 Serum or plasma sodium measurement (moles/volume) 135 mmol/L 135-145 Serum or plasma potassium measurement (moles/volume) 3.4 mmol/L 3.6-5.0 Serum or plasma chloride measurement (moles/volume) 102 mmol/L 98-107 Carbon dioxide 21 mmol/L 21-32 Serum or plasma anion gap determination (moles/volume) 12 mmol/L 5-14 Serum or plasma urea nitrogen measurement (mass/volume) 6 mg/dL 7-18 Serum or plasma creatinine measurement (mass/volume) 0.67 mg/dL 0.60-1.30 Serum or plasma urea nitrogen/creatinine mass ratio 9 NRG Serum or plasma creatinine measurement with calculation of estimated glomerular filtration rate > NRG Serum or plasma glucose measurement (mass/volume) 139 mg/dL 70-105 Serum or plasma calcium measurement (mass/volume) 9.4 mg/dL 8.5-10.1 Serum or plasma total bilirubin measurement (mass/volume) 0.3 mg/dL 0.1-1.0 Serum or plasma alkaline phosphatase measurement (enzymatic activity/volume) 119 U/L 40-136 Serum or plasma aspartate aminotransferase measurement (enzymatic activity/ volume) 22 U/L 5-34 Serum or plasma alanine aminotransferase measurement (enzymatic activity/volume ) 34 U/L 0-55 Serum or plasma protein measurement (mass/volume) 7.6 g/dL 6.4-8.2 Serum or plasma albumin measurement (mass/volume) 4.4 g/dL 3.2-4.5 CALCIUM CORRECTED 9.1 mg/dL 8.5-10.1 Serum heterophile antibody titer - 03/18/18 20:01 Serum heterophile antibody titer NEGATIVE NEGATIVE Blood manual differential performed detection - 03/18/18 20:01 Blood monocytes/100 leukocytes 3 % NRG Manual blood segmented neutrophils/100 leukocytes 83 % NRG Blood band neutrophils/100 leukocytes 1 % NRG Manual blood lymphocytes/100 leukocytes 11 % NRG Manual eosinophils/100 leukocytes in nose 1 % NRG Manual blood basophils/100 leukocytes 1 % NRG Blood anisocytosis detection by light microscopy SLIGHT NRG Blood dohle body detection by light microscopy SLIGHT NRG Complete urinalysis with reflex to culture - 03/18/18 20:03 Urine color determination YELLOW NRG Urine clarity determination CLEAR NRG Urine pH measurement by test strip 6 5-9 Specific gravity of urine by test strip 1.015 1.016- 1.022 Urine protein assay by test strip, semi-quantitative NEGATIVE NEGATIVE Urine glucose detection by automated test strip NEGATIVE NEGATIVE Erythrocytes detection in urine sediment by light microscopy 3+ NEGATIVE Urine ketones detection by automated test [...] detection in urine sediment by light microscopy 0-2 NRG Crystals detection in urine sediment by light microscopy NONE NRG Casts detection in urine sediment by light microscopy NONE NRG Mucus detection in urine sediment by light microscopy NEGATIVE NRG Complete urinalysis with reflex to culture NO NRG Urine drug screening test - 03/18/18 20:03 Urine phencyclidine detection by screening method NEGATIVE NEGATIVE Urine benzodiazepines detection by screening method POSITIVE NEGATIVE Urine cocaine detection NEGATIVE NEGATIVE Urine amphetamines detection by screening method NEGATIVE NEGATIVE Urine methamphetamine detection by screening method NEGATIVE NEGATIVE Urine cannabinoids detection by screening method NEGATIVE NEGATIVE Urine opiates detection by screening method POSITIVE NEGATIVE Urine barbiturates detection NEGATIVE NEGATIVE Screening urine tricyclic antidepressants detection NEGATIVE NEGATIVE Urine methadone detection by screening method NEGATIVE NEGATIVE Urine oxycodone detection NEGATIVE NEGATIVE Urine propoxyphene detection NEGATIVE NEGATIVE Urine beta human chorionic gonadotropin (hCG) measurement - 03/18/18 20:03 Urine beta human chorionic gonadotropin (hCG) measurement NEGATIVE NEGATIVE Streptococcus pyogenes antigen detection - 03/18/18 20:30 Streptococcus pyogenes antigen detection NEGATIVE NEGATIVE Bacterial throat culture - 03/18/18 20:30 Bacterial throat culture NBS NRG Blood lactic acid measurement (moles/volume) - 03/18/18 22:49 Blood lactic acid measurement (moles/volume) 1.21 mmol/L 0.50-2.00 Bacterial blood culture - 03/18/18 22:49 Bacterial blood culture NG NRG Bacterial blood culture - 03/18/18 22:49 Bacterial blood culture NG NRG Complete blood count (CBC) with automated white blood cell (WBC) differential - 03/19/18 04:44 Blood leukocytes automated count (number/volume) 16.3 10*3/uL 4.3-11.0 Blood erythrocytes automated count (number/volume) 3.30 10*6/uL 4.35-5.85 Venous blood hemoglobin measurement (mass/volume) 9.5 g/dL 11.5-16.0 Blood hematocrit (volume fraction) 30 % 35-52 Automated erythrocyte mean corpuscular volume 92 [foz_us] 80-99 Automated erythrocyte mean corpuscular hemoglobin (mass per erythrocyte) 29 pg 25-34 Automated erythrocyte mean corpuscular hemoglobin concentration measurement ( mass/volume) 31 g/dL 32-36 Automated erythrocyte distribution width ratio 16.8 % 10.0-14.5 Automated blood platelet count (count/volume) 332 10*3/uL 130-400 Automated blood platelet mean volume measurement 10.7 [foz_us] 7.4-10.4 Automated blood neutrophils/100 leukocytes 75 % 42-75 Automated blood lymphocytes/100 leukocytes 18 % 12-44 Blood monocytes/100 leukocytes 5 % 0-12 Automated blood eosinophils/100 leukocytes 2 % 0-10 Automated blood basophils/100 leukocytes 0 % 0-10 Blood neutrophils automated count (number/volume) 12.3 10*3 1.8-7.8 Blood lymphocytes automated count (number/volume) 2.9 10*3 1.0-4.0 Blood monocytes automated count (number/volume) 0.8 10*3 0.0-1.0 Automated eosinophil count 0.3 10*3/uL 0.0-0.3 Automated blood basophil count (count/volume) 0.0 10*3/uL 0.0-0.1 Capillary blood glucose measurement by glucometer (mass/volume) - 03/19/18 11: 00 Capillary blood glucose measurement by glucometer (mass/volume) 133 mg/dL 70-110 Encounters ACCT No. Visit Date/Time Discharge Status Pt. Type Provider Facility Loc./Unit Complaint [id number] 05/11/2013 10:53:00 05/11/2013 23:59:59 CLS Outpatient ONI MA DO [id number] 05/11/2013 10:53:00 05/11/2013 23:59:59 CLS Outpatient KASSIE FALK APRN [id number] 04/07/2013 09:31:00 04/07/2013 23:59:59 CLS Outpatient ONI MA DO [id number] 03/24/2013 16:34:00 03/24/2013 23:59:59 CLS Outpatient ONI MA DO [id number] 03/16/2013 18:22:00 03/16/2013 23:59:59 CLS Outpatient ONI MA DO [id number] 07/22/2012 14:13:00 07/22/2012 23:59:59 CLS Outpatient ONI MA DO [id number] 11/04/2012 11:49:00 Document Registration [id number] 07/23/2018 13:20:00 07/23/2018 23:59:59 CLS Outpatient BANDAR CESAR [facility] [id number] 11/24/2017 12:20:00 Document Registration [id number] 08/06/2018 21:31:00 08/06/2018 23:02:00 DIS Emergency SRIDHAR ORTIZ APRN Via [facility] ER TINGLING FACE, MIGRAINE [id number] 03/18/2018 22:38:00 03/19/2018 16:40:00 DIS Inpatient YOSELYN DONALD, LINH Ulrich Via [facility] 4TH LEUKOCYTOSIS,HEADACHE [id number] 03/08/2018 22:30:00 03/09/2018 00:21:00 DIS Emergency FELIPE PARKS, LEEANNE K [facility] ER MIGRAINE [id number] 11/22/2017 23:10:00 11/22/2017 23:39:00 DIS Emergency AIME PEREZ MD Via [facility] ER TOES TINGLE W PAIN [id number] 08/15/2017 16:34:00 08/15/2017 21:04:00 DIS Emergency AIME PEREZ MD Via [facility] ER FEVER/HEADACHE/BODY ACHES [id number] 08/06/2017 22:25:00 08/07/2017 00:44:00 DIS Emergency AIME PEREZ MD Via [facility] ER LEFT SIDE PAIN [id number] 08/05/2017 21:44:00 08/06/2017 00:07:00 DIS Emergency AIME PEREZ MD Via [facility] ER ABD AND BACK PAIN, HEADACHE, NAUSEA [id number] 08/25/2016 20:56:00 08/25/2016 22:54:00 DIS Emergency AMEENA CAO MD Via [facility] ER CHEST PAIN [id number] 01/08/2016 02:12:00 01/08/2016 03:33:00 DIS Emergency AMEENA CAO MD Via [facility] ER HEADACHES, N/V [id number] 12/17/2015 22:03:00 12/17/2015 22:35:00 DIS Emergency SRIDHAR ORTIZ APRN Via [facility] ER DENTAL PAIN [id number] 12/05/2015 20:58:00 12/05/2015 22:51:00 DIS Emergency SRIDHAR ORTIZ APRN Via [facility] ER [id number] 05/15/2014 12:20:00 05/15/2014 14:26:00 DIS Emergency ZAYRA OLMSTEAD MD Via [facility] ER [id number] 11/25/2013 10:00:00 11/27/2013 17:53:00 DIS Inpatient [id number] 11/18/2013 11:15:00 11/18/2013 23:59:59 CLS Outpatient [id number] 11/08/2013 17:10:00 11/08/2013 18:45:00 DIS Outpatient [id number] 10/16/2013 17:21:00 10/16/2013 19:55:00 DIS Outpatient [id number] 09/14/2013 09:42:00 09/14/2013 23:59:59 CLS Outpatient [id number] 08/26/2013 17:21:00 08/26/2013 19:07:00 DIS Outpatient [id number] 08/19/2013 14:03:00 08/19/2013 23:59:59 CLS Outpatient [id number] 08/18/2013 18:23:00 08/18/2013 20:00:00 DIS Emergency [id number] 07/03/2013 02:19:00 07/03/2013 06:11:00 DIS Emergency [id number] 04/02/2013 11:33:00 04/02/2013 23:59:59 CLS Outpatient [id number] 04/01/2013 20:38:00 04/01/2013 23:11:00 DIS Emergency [id number] 11/02/2012 04:09:00 11/03/2012 14:00:00 DIS Inpatient [id number] 08/06/2018 10:02:00 ACT Outpatient SACHIN ARVIZU DO [facility] [id number] 03/23/2015 22:43:00 Document Registration
== END 2018-08-06 23:02 | disposition home or self-care (01) ==
LOC: EDUNIT# 21:28 → ER 21:31
DX: R51 Headache (principal); Z86.69 Personal history of other diseases of the nervous system and sense organs; Z82.49 Family history of ischemic heart disease and other diseases of the circulatory system; Z87.440 Personal history of urinary (tract) infections; Z79.82 Long term (current) use of aspirin; Z79.52 Long term (current) use of systemic steroids; Z98.890 Other specified postprocedural states
CPT/HCPCS: 96372; 99281

== ENCOUNTER → 2018-08-06 | Outpatient (CLI) | payer OTHER ==
[~2018-08-06] MED LIST changes: +ASPI-789 PO; +BUTA1TAB9 PO; +DOXY100T2 PO; +DULO60CA58 PO; +HYDR-700 PO; +NAPR-1071 PO; +PRD10T PO; +SMTR50T PO; +TPR25T PO
--- NOTE | 2018-08-06 17:22 | Diagnostic Imaging Report ---
EXAMINATION: Pelvic ultrasound. INDICATION: Secondary dysmenorrhea. FINDINGS: The previous pelvic ultrasound exam of 03/31/2013 failed to show any sign of an acute abnormality of the pelvis. On this study, the uterus is nongravid and not enlarged measuring 10.4 x 6.0 x 5.3 cm. On the prior study, the uterus measured 9 x 6 x 8 cm. There is no focal mass involving the uterus to suggest a fibroid. The endometrial lining is thickened measuring 9 mm (normal 5 mm or less). This finding is nonspecific. Correlation with the patient's menstrual cycle will be recommended. The previous exam did note a few small nabothian cysts. These do seem to have increased in size and number since the prior exam. On the prior study, the largest cyst was approximately 6 mm in size. On this study, there are at least two cysts which are over 1 cm in size. Both ovaries are identified. There is good blood flow to each ovary. There is a 2.0 x 1.5 x 2.0 cm left ovarian cyst. This cyst has a generally benign appearance. The right ovary is unremarkable. There is no solid pelvic mass or free fluid collection noted. IMPRESSION: 1. In the interval since the prior study, a 2.0 x 1.5 x 2.0 cm left ovarian cyst has developed. This cyst has a generally benign appearance. 2. There is no solid pelvic mass or free fluid collection to suggest an acute abnormality. 3. There also appear to be a few more and larger nabothian cysts than noted on the prior exam. Dictated by: Dictated on workstation # [id number]
== END ==
LOC: RAD 10:02
PROVIDERS: ATTEND Obstetrics & Gynecology
DX: N83.202 Unspecified ovarian cyst, left side (principal); N94.5 Secondary dysmenorrhea
CPT/HCPCS: 76830; 76856

== ENCOUNTER 2018-08-17 00:02 | Emergency (ER) | payer OTHER ==
[~2018-08-17] VITALS: Ht 154.9 cm; Wt 81.2 kg
--- OUTSIDE RECORDS SUMMARY | 2018-08-17 00:20 | XMS REPORT | Continuity of Care Document ---
Author Author [facility] Ctr of [facility] Ctr of [facility] Address Unknown Phone Unavailable Allergies Active Description Code Type Severity Reaction Onset Reported/Identified Relationship to Patient Clinical Status Yes No Known Drug Allergies [id number] Drug Allergy Mild N/A 08/15/2017 Medications There [...] ONI K V25.12 IUD REMOVAL 11/04/2012 DEYA FRUIT SHIPPER, KASSIE A V25.01 CONTRACEPTION - ORAL CONTRACEPTION 11/04/2012 DEYA FRUIT SHIPPER, KASSIE A V25.12 IUD REMOVAL 11/04/2012 MA [...] DO, ONI K 784.0 HEADACHE 03/16/2013 DEYA FRUIT SHIPPER, KASSIE A 728.85 SPASM OF MUSCLE 03/16/2013 DEYA FRUIT SHIPPER, KASSIE A 784.0 HEADACHE 03/16/2013 MA DO, ONI K 728.85 SPASM OF MUSCLE 03/16/2013 MA DO, ONI K 784.0 HEADACHE 03/24/2013 MA DO, ONI K 780.79 fatigue 03/24/2013 MA DO, ONI K 799.22 IRRITABILITY 03/24/2013 MA DO, ONI K 780.79 fatigue 03/24/2013 MA DO, ONI K 799.22 IRRITABILITY 03/24/2013 DEYA FRUIT SHIPPER, KASSIE A 780.79 fatigue 03/24/2013 KASSIE FALK [...] NEG 08/06/2017 AIME PEREZ MD Ot Z79.52 SKILLED NURSING (CURRENT) USE OF SYSTEMIC STER 08/06/2017 AIME [...] NEG 08/07/2017 AIME PEREZ MD Ot Z79.52 SKILLED NURSING (CURRENT) USE OF SYSTEMIC STER 08/07/2017 AIME [...] NEG 08/07/2017 AIME PEREZ MD Ot Z79.52 SKILLED NURSING (CURRENT) USE OF SYSTEMIC STER 08/07/2017 AIME [...] NEG 08/11/2017 AIME PEREZ MD Ot Z79.52 SKILLED NURSING (CURRENT) USE OF SYSTEMIC STER 08/11/2017 AIME [...] PERSONAL HISTORY OF URINARY (TRACT) INFE 08/13/2017 AIEM PEREZ MD Ot Z87.59 PERSONAL HISTORY OF [...] UNSPECIFIED 08/15/2017 AIME PEREZ MD Ot Z79.52 WATERWAY TRAFFIC CHECKER (CURRENT) USE OF SYSTEMIC STER 08/15/2017 AIME [...] SKIN 11/22/2017 AIME PEREZ MD Ot Z79.52 WATERWAY TRAFFIC CHECKER (CURRENT) USE OF SYSTEMIC STER 11/22/2017 AIME [...] SKIN 11/24/2017 AIME PEREZ MD Ot Z79.52 WATERWAY TRAFFIC CHECKER (CURRENT) USE OF SYSTEMIC STER 11/24/2017 AIME PEREZ MD Ot Z87.2 PERSONAL HISTORY OF DISEASES OF THE SKIN 11/24/2017 AIME PEREZ MD Ot Z87.59 PERSONAL HISTORY OF COMP OF PREG, CHLDBR 03/09/2018 FELIPE DO, LEEANNE K Ot F17.210 NICOTINE DEPENDENCE, CIGARETTES, UNCOMPL 03/09/2018 FELIPE DO, LEEANNE K Ot G43.909 MIGRAINE, UNSP, NOT INTRACTABLE, WITHOUT 03/09/2018 FELIPE DO, LEEANNE K Ot Z79.52 SKILLED NURSING (CURRENT) USE OF SYSTEMIC STER 03/09/2018 FELIPE DO, LEEANNE K Ot Z87.440 PERSONAL HISTORY OF URINARY (TRACT) INFE 03/09/2018 FELIPE DO, LEEANNE K Ot Z98.890 OTHER SPECIFIED POSTPROCEDURAL STATES 03/11/2018 FELIPE DO, LEEANNE K Ot F17.210 NICOTINE DEPENDENCE, CIGARETTES, UNCOMPL 03/11/2018 FELIPE DO, LEEANNE K Ot G43.909 MIGRAINE, UNSP, NOT INTRACTABLE, WITHOUT 03/11/2018 FELIPE DO, LEEANNE K Ot Z79.52 WATERWAY TRAFFIC CHECKER (CURRENT) USE OF SYSTEMIC STER 03/11/2018 FELIPE [...] CYST, LEFT SIDE 08/07/2018 SACHIN ARVIZU DO Ot 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 08/10/2018 SRIDHAR ORTIZ APRN Ot R51 HEADACHE 08/10/2018 SRIDHAR ORTIZ APRN Ot Z79.52 WATERWAY TRAFFIC CHECKER (CURRENT) USE OF SYSTEMIC STER 08/10/2018 SRIDHAR ORTIZ APRN Ot Z79.82 WATERWAY TRAFFIC CHECKER (CURRENT) USE OF ASPIRIN 08/10/2018 SRIDHAR ORTIZ APRN Ot Z82.49 FAMILY HX OF ISCHEM HEART DIS AND OTH DI 08/10/2018 SRIDHAR ORTIZ APRN Ot Z86.69 PERSONAL HISTORY OF DIS OF THE NERVOUS S 08/10/2018 SRIDHAR ORTIZ APRN Ot Z87.440 PERSONAL HISTORY OF URINARY (TRACT) INFE 08/10/2018 SRIDHAR ORTIZ APRN Ot Z98.890 OTHER SPECIFIED POSTPROCEDURAL STATES Procedures Code Description Performed By Performed On MATTHEW OBREGON 07/22/2012 25637 ANTIBODY SCREEN (order) 05/11/2013 99969 URINE TEST (IN- HOUSE) 05/11/2013 66889 UA OB DIP 05/11/2013 19644 CBC 05/11/2013 21709 TSH 05/11/2013 50081 HEP B SURFACE ANTIGEN (RML) 05/11/2013 88195 SYPHILLIS TEST 05/11/2013 2953912 ANTIBODY SCREEN (RESULT ONLY) 05/12/2013 47104 BLOOD TYPE/Rh FACTOR 05/12/2013 90582 HIV ANTIBODIES (RML) 05/12/2013 10753 RUBELLA ANTIBODY, IGG 05/12/2013 69172 CULTURE URINE 05/12/2013 Results Test Result Range [...] FOR INFLUENZA A AND B ANTIGENS BY [facility] Complete blood count (CBC) with automated white [...] Status Pt. Type Provider Facility Loc./Unit Complaint [id number] 05/11/2013 10:53:00 05/11/2013 23:59:59 [facility] Outpatient ONI MA DO [id number] 05/11/2013 10:53:00 05/11/2013 23:59:59 CLS Outpatient DEYA LIKASSIE Ulrich [id number] 04/07/2013 09:31:00 04/07/2013 23:59:59 CLS Outpatient ONI MA DO [id number] 03/24/2013 16:34:00 03/24/2013 23:59:59 CLS Outpatient ONI MA DO [id number] 03/16/2013 18:22:00 03/16/2013 23:59:59 CLS Outpatient ONI MA DO [id number] 07/22/2012 14:13:00 07/22/2012 23:59:59 CLS Outpatient MA DO, ONI K [id number] 11/04/2012 11:49:00 Document Registration [id number] 08/10/2018 17:20:00 08/10/2018 23:59:59 CLS Outpatient BETY MCCLELLAN APRN [facility] [id number] 11/24/2017 12:20:00 Document Registration [id number] 08/06/2018 10:02:00 08/06/2018 23:59:59 CLS Outpatient SACHIN ARVIZU DO [facility] RAD AUB [id number] 08/06/2018 21:31:00 08/06/2018 23:02:00 DIS Outpatient SRIDHAR ORTIZ APRN [facility] ER TINGLING FACE, MIGRAINE [id number] 03/18/2018 22:38:00 03/19/2018 16:40:00 DIS Inpatient LINH TOPETE MD [facility] 4TH LEUKOCYTOSIS,HEADACHE [id number] 03/08/2018 22:30:00 03/09/2018 00:21:00 DIS Emergency LEEANNE WANG DO [facility] ER MIGRAINE [id number] 11/22/2017 23:10:00 11/22/2017 23:39:00 DIS Emergency AIME PEREZ MD [facility] ER TOES TINGLE W PAIN [id number] 08/15/2017 16:34:00 08/15/2017 21:04:00 DIS Emergency AIME PEREZ MD [facility] ER FEVER/HEADACHE/BODY ACHES [id number] 08/06/2017 22:25:00 08/07/2017 00:44:00 DIS Emergency AIME PEREZ MD [facility] ER LEFT SIDE PAIN [id number] 08/05/2017 21:44:00 08/06/2017 00:07:00 DIS Emergency AIME PEREZ MD [facility] ER ABD AND BACK PAIN, HEADACHE, NAUSEA [id number] 08/25/2016 20:56:00 08/25/2016 22:54:00 DIS Emergency AMEENA CAO MD [facility] ER CHEST PAIN [id number] 01/08/2016 02:12:00 01/08/2016 03:33:00 DIS Emergency KILEY DONALD, AMEENA Duran [facility] ER HEADACHES, N/V [id number] 12/17/2015 22:03:00 12/17/2015 22:35:00 DIS Emergency SRIDHAR ORTIZ FRUIT SHIPPER [facility] ER DENTAL PAIN [id number] 12/05/2015 20:58:00 12/05/2015 22:51:00 DIS Emergency SRIDHAR ORTIZ FRUIT SHIPPER [facility] ER [id number] 05/15/2014 12:20:00 05/15/2014 14:26:00 DIS Emergency ISHAN DONALD, ZAYRA Lomeli [facility] ER [id number] 11/25/2013 10:00:00 11/27/2013 17:53:00 DIS Inpatient [id number] 11/18/2013 11:15:00 11/18/2013 23:59:59 CLS Outpatient [id number] 11/08/2013 17:10:00 11/08/2013 18:45:00 DIS Outpatient [id number] 10/16/2013 17:21:00 10/16/2013 19:55:00 DIS Outpatient [id number] 09/14/2013 09:42:00 09/14/2013 23:59:59 CLS Outpatient [id number] 08/26/2013 17:21:00 08/26/2013 19:07:00 DIS Outpatient [id number] 08/19/2013 14:03:00 08/19/2013 23:59:59 CLS Outpatient [id number] 08/18/2013 18:23:00 08/18/2013 20:00:00 DIS Emergency [id number] 07/03/2013 02:19:00 07/03/2013 06:11:00 DIS Emergency [id number] 04/02/2013 11:33:00 04/02/2013 23:59:59 CLS Outpatient [id number] 04/01/2013 20:38:00 04/01/2013 23:11:00 DIS Emergency [id number] 11/02/2012 04:09:00 11/03/2012 14:00:00 DIS Inpatient [id number] 03/23/2015 22:43:00 Document Registration
[2018-08-17] MEDS ORDERED: PROMETHAZINE INJ 25 MG/ML (PHENERGAN) AMP IM STA (02:03)
[2018-08-17] MEDS ORDERED: KETOROLAC 60 MG/2 ML VIAL IM STA (02:03)
[2018-08-17] MEDS ORDERED: diphenhydrAMINE 50 MG/ML INJ (BENADRYL) IM STA (02:03)
--- NOTE | 2018-08-17 02:30 | ED Headache ---
General Chief Complaint: Head/Cervical Problems Stated Complaint: HEADACHE Nursing Triage Note: pt c/o flare up of chronic migraine accompanied with nausea. pt took amitrex at 1900 but states "it didn't touch the pain." Nursing Sepsis Screen: No Definite Risk Source: patient Exam Limitations: no limitations History of Present Illness Date Seen by Provider: Aug 17, 2018 Time Seen by Provider: 01:59 Initial Comments Here with report of chronic migraine headache that started yesterday afternoon. She took her Topamax and Imitrex and that didn't help. She has these every few weeks and states that this is typical. Has photophobia. Denies vomiting but does have nausea. Timing/Duration: 4-6 hours Severity/Quality: moderate, severe Location: frontal Prior Headaches/Recent Trauma: frequent headaches Modifying Factors: worse with exposure to light Associated Symptoms: No confusion, No fatigue; facial pain; No fever/chills, No loss of consciousness; nausea/vomiting; No nasal congestion, No nasal drainage, No sinus infection, No stiff neck, No vision changes, No weakness Allergies and Home Medications Allergies Coded Allergies: No Known Drug Allergies (Unverified , 08/15/17) Home Medications Aspirin/Acetaminophen/Caffeine 1 Each Tablet, 1 TAB PO BID PRN for HEADACHE, ( Reported) Cyclobenzaprine HCl 10 Mg Tablet, 10 MG PO TID PRN for MUSCLE SPASMS, (Reported) Doxycycline Hyclate 100 Mg Tablet, 100 MG PO BID Prescribed by: LINH TOPETE on 03/19/18 1315 Naproxen 500 Mg Tablet, 500 MG PO BID PRN for PAIN-MILD, (Reported) Prednisone 10 Mg Tab, 0 PO UD Take 6 tabs (60mg) daily, decrease by 1 tab (10mg) daily. Prescribed by: LINH TOPETE on 03/19/18 1309 Sumatriptan Succinate 50 Mg Tab, 50 MG PO UD Take at onset of headache, may repeat x 1 in 2 hours if headache persists. Prescribed by: LINH TOPETE on 03/19/18 1309 Topiramate 25 Mg Tablet, 25 MG PO UD Start one tab at bedtime x 7 days, then increase to BID. Prescribed by: LINH TOPETE on 03/19/18 1309 Patient Home Medication List Home Medication List Reviewed: Yes Review of Systems Review of Systems Constitutional: no symptoms reported Eyes: See HPI; Denies Blurred Vision Ears, Nose, Mouth, Throat: no symptoms reported Respiratory: no symptoms reported Cardiovascular: no symptoms reported Gastrointestinal: nausea; No vomiting Genitourinary: no symptoms reported Musculoskeletal: no symptoms reported Psychiatric/Neurological: See HPI, Headache; Denies Weakness All Other Systems Reviewed Negative Unless Noted: Yes Past Vzzfqjk-Pzmafu-Luprdi Hx Past Med/Social Hx: Reviewed Nursing Past Med/Soc Hx Patient Social History Alcohol Use: Denies Use Recreational Drug Use: No Smoking Status: Current Everyday Smoker Type Used: Cigarettes 2nd Hand Smoke Exposure: No Recent Foreign Travel: No Contact w/Someone Who Travel: No Recent Infectious Disease Expo: No Recent Hopitalizations: No Immunizations Up To Date Tetanus Booster (TDap): Unknown Seasonal Allergies Seasonal Allergies: No Past Medical History Surgeries: Yes (5 C-SECTIONS) Section Respiratory: No Cardiac: No Neurological: Yes Headaches /Migraines Reproductive Disorders: No Female Reproductive Disorders: Denies Sexually Transmitted Disease: No Genitourinary: No UTI-Chronic Gastrointestinal: No Musculoskeletal: Yes Arthritis, Chronic Back Pain Endocrine: No HEENT: No Cancer: No Psychosocial: No Integumentary: Yes (Chronic dermatitis of the hands) Blood Disorders: No Adverse Reaction/Blood Tranf: No Family Medical History Reviewed Nursing Family Hx Family history: Hypertension 19 MOTHER No Pertinent Family Hx Physical Exam Vital Signs Vital Signs - First Documented 08/17/18 00:37 Temp 98.2 Pulse 84 Resp 22 B/P (MAP) 97/60 (72) O2 Delivery Room Air Capillary Refill : Less Than 3 Seconds Height, Weight, BMI Height: 5'1.00" Weight: 179lbs. 4.0oz. 81.527732rl; 37.3 BMI Method:Stated General Appearance: WD/WN, mild distress HEENT: PERRL/EOMI, pharynx normal Neck: full range of motion, supple Cardiovascular: regular rate, rhythm, no murmur Respiratory: lungs clear, normal breath sounds Gastrointestinal: non tender, soft Back: normal inspection, no CVA tenderness, no vertebral tenderness Extremities: non-tender, normal inspection Psychiatric: alert, oriented x 3 Crainal Nerves: normal hearing, normal speech, PERRL Coordination/Gait: normal gait Motor/Sensory: no motor deficit, no sensory deficit Skin: normal color, warm/dry Progress/Results/Core Measures Results/Orders My Orders Orders - TASHA BUSTOS MD Promethazine Injection (Phenergan Injec (08/17/18 02:03) Ketorolac Injection (Toradol Injection) (08/17/18 02:03) Diphenhydramine Injection (Benadryl Inje (08/17/18 02:03) Vital Signs/I&O 08/17/18 00:37 Temp 98.2 Pulse 84 Resp 22 B/P (MAP) 97/60 (72) O2 Delivery Room Air Blood Pressure Mean: 72 Progress Progress Note : Progress Note Seen and evaluated. Toradol 60 mg IM, Benadryl 50 mg IM and Phenergan 25 mg IM. 0249: Improved. Discharged home with return precautions. Patient verbalize understanding instructions and agreement with plan. Departure Impression Primary Impression: Migraine Qualified Codes: G43.009 - Migraine without aura, not intractable, without status migrainosus Disposition: 01 HOME, SELF-CARE Condition: Improved Departure-Patient Inst. Decision time for Depature: 02:50 Referrals: [facility] (PCP/Family) Primary Care Physician Patient Instructions: Migraine Headache (DC) Add. Discharge Instructions: All discharge instructions reviewed with patient and/or family. Voiced understanding. Continue home medications as previously prescribed. Follow-up with your DrSher in one to 2 days for recheck and further evaluation. Return for worse pain, fever, vomiting, weakness, breathing problems or other concerns as needed. Drink plenty of fluids. TASHA BUSTOS MD Aug 17, 2018 02:30
[2018-08-17 02:55] VITALS: BP 97/60
== END 2018-08-17 02:57 | disposition home or self-care (01) ==
LOC: EDUNIT# 00:02 → ER 00:03
DX: G43.909 Migraine, unspecified, not intractable, without status migrainosus (principal); F17.210 Nicotine dependence, cigarettes, uncomplicated; Z79.82 Long term (current) use of aspirin; Z87.440 Personal history of urinary (tract) infections; Z82.49 Family history of ischemic heart disease and other diseases of the circulatory system; Z79.52 Long term (current) use of systemic steroids; Z98.890 Other specified postprocedural states
CPT/HCPCS: 99284

== ENCOUNTER 2018-09-04 11:50 | Outpatient (CLI) | payer OTHER ==
[~2018-09-04] VITALS: Ht 154.9 cm; Wt 81.3 kg
[~2018-09-04 11:50] MED LIST changes: +ALPR1TAB2 PO; +ARIP5TAB12 PO; +CITA40TA19 PO; +GALC120P SQ; +OMEP20CA12 PO; +PROP20TA5 PO; +TOPI200T25 PO
== END 2018-09-04 12:26 | disposition home or self-care (01) ==
LOC: PREOP 11:50
PROVIDERS: ATTEND Obstetrics & Gynecology
DX: Z01.818 Encounter for other preprocedural examination (principal)

== ENCOUNTER 2018-09-10 07:34 | Day surgery (SDC) | payer OTHER ==
[~2018-09-10] VITALS: Ht 154.9 cm; Wt 81.3 kg
[2018-09-10 08:00] VITALS: BP 92/56
[2018-09-10] MEDS ORDERED: BUPIVACAINE 0.25% 30 ML (SENSORCAINE) VIAL ONE (08:28)
[2018-09-10 08:33] LABS: BASOPHILS # (AUTO) 0.1 10^3/uL (0.0-0.1); BASOPHILS % (AUTO) 1 % (0-10); EOSINOPHILS # (AUTO) 0.3 10^3/uL (0.0-0.3); EOSINOPHILS % (AUTO) 2 % (0-10); HEMATOCRIT 36 % (35-52); HEMOGLOBIN 11.2 G/DL (11.5-16.0); LYMPHOCYTES # (AUTO) 2.5 X 10^3 (1.0-4.0); LYMPHOCYTES % (AUTO) 22 % (12-44); MEAN CORPUSCULAR HEMOGLOBIN 29 PG (25-34); MEAN CORPUSCULAR HGB CONC 31 G/DL (32-36); MEAN CORPUSCULAR VOLUME 92 FL (80-99); MEAN PLATELET VOLUME 11.1 FL (7.4-10.4); MONOCYTES # (AUTO) 0.7 X 10^3 (0.0-1.0); MONOCYTES % (AUTO) 6 % (0-12); NEUTROPHILS # (AUTO) 8.1 X 10^3 (1.8-7.8); NEUTROPHILS % (AUTO) 70 % (42-75); PLATELET COUNT 314 10^3/uL (130-400); RED CELL DISTRIBUTION WIDTH 15.6 % (10.0-14.5); WHITE BLOOD COUNT 11.5 10^3/uL (4.3-11.0)
[2018-09-10] MEDS ORDERED: LIDOCAINE PF 2% 5 ML (XYLOCAINE) VIAL ONE (08:34)
[2018-09-10] MEDS ORDERED: ONDANSETRON 4 MG/2 ML (SDV) Z0FRAN ONE (08:34)
[2018-09-10] MEDS ORDERED: MIDAZOLAM 2 MG/2 ML (VERSED) VIAL ONE (08:34)
[2018-09-10] MEDS ORDERED: fentaNYL INJECTION 100 MCG/2 ML AMP ONE (08:34)
[2018-09-10] MEDS ORDERED: DEXAMETHASONE 10 MG/ML (DECADRON) 1 ML VIAL ONE (08:34)
[2018-09-10] MEDS ORDERED: SEVOFLURANE (ULTANE) 15 ML INHAL SOLN ONE (08:34)
[2018-09-10] MEDS ORDERED: proPOfol 200 MG/20 ML (DIPRIVAN) VIAL IV ONE (08:34)
--- NOTE | 2018-09-10 08:40 | Progress Note-Pre Operative ---
Pre-Operative Progress Note H&P Reviewed The H&P was reviewed, patient examined and no changes noted. Date Seen by Provider: Sep 10, 2018 Time Seen by Provider: 08:38 Date H&P Reviewed: Sep 10, 2018 Time H&P Reviewed: 08:38 Pre-Operative Diagnosis: AUB, Dysmenorrhea, Thickened endometrium on US SACHIN ARVIZU DO Sep 10, 2018 08:40
[2018-09-10] MEDS ORDERED: D5 LR IV SOLUTION 1,000 ML IV SCH (08:43)
[2018-09-10] MEDS ORDERED: ONDANSETRON 4 MG/2 ML (SDV) Z0FRAN IVP PRN ×2 (08:45→10:00)
[2018-09-10] MEDS ORDERED: KETOROLAC 30 MG/ML VIAL IVP ONE (08:45)
--- NOTE | 2018-09-10 08:46 | Discharge Inst-Women's Service ---
Discharge Inst-Women's Serv Depart Medication/Instructions New, Converted or Re-Newed RX: RX on Chart Consults/Follow Up Additional Follow Up: Yes Orders/Referrals Dr. Arvizu in 2-3 weeks Activity Activity: Activity as Tolerated Driving Instructions: No Driving for 1 Week NO SMOKING: NO SMOKING Nothing Inside Vagina: No Douching, No [place] Diet Discharge Diet: No Restrictions Symptoms to Report to : Bleeding Excessive, Pain Increased, Fever Over 101 Degrees F, Vaginal Bleeding Increase, Questions/Concerns For Any Problems or Questions: Contact Your Physician SACHIN ARVIZU DO Sep 10, 2018 08:46
[2018-09-10] MEDS ORDERED: HYDR-4226 PO (08:50)
[2018-09-10] MEDS ORDERED: IBUP-1773 PO (08:50)
[2018-09-10] MEDS ORDERED: LACTATED RINGERS 1,000 ML IV PRN (08:51)
[2018-09-10] MEDS ORDERED: HYDROmorphone 2 MG/ML VIAL (DILAUDID) IV ONE (10:00)
[2018-09-10 10:25] VITALS: BP 101/75
[2018-09-10 10:55] VITALS: BP 96/55
--- NOTE | 2018-09-10 11:09 | Anesthesia-General Post-Op ---
General Patient Condition Mental Status/LOC: Same as Preop Cardiovascular: Satisfactory Nausea/Vomiting: Absent Respiratory: Satisfactory Pain: Controlled Complications: Absent Post Op Complications Complications None Follow Up Care/Instructions Patient Instructions None needed. Anesthesia/Patient Condition Patient Condition Patient is doing well, no complaints, stable vital signs, no apparent adverse anesthesia problems. ELAINE TORRES DO Sep 10, 2018 11:09
--- NOTE | 2018-09-10 12:41 | OPERATIVE REPORT ---
DATE OF SERVICE: PREOPERATIVE DIAGNOSES: 1. A 37-year-old female with dysmenorrhea. 2. Menorrhagia. 3. Thickened endometrium on ultrasound. POSTOPERATIVE DIAGNOSES: 1. A 37-year-old female with dysmenorrhea. 2. Menorrhagia. 3. Thickened endometrium on ultrasound. PROCEDURE: D and C hysteroscopy. SURGEON: Sachin Arvizu DO. ANESTHESIA: General endotracheal. ESTIMATED BLOOD LOSS: Minimal. URINE OUTPUT: 20 mL of clear drained at the start of the procedure. FLUIDS: 800 mL of lactated Ringer solution. FINDINGS: A normal appearing endometrial cavity with a moderate amount of endometrial curettings, which were collected for pathology and grossly normal appearing. Cervix with nabothian cyst. SPECIMENS SENT: Endometrial curettings. INDICATIONS FOR PROCEDURE: This is a 37-year-old female patient, who is a consultation from [facility] for concerns of heavy painful periods. She underwent ultrasound, which was within normal limits, but showed a thickened endometrium. She had tried other methods to control bleeding that were all unsuccessful. She wished to proceed with D and C after all her options were discussed. Risks of the procedure were discussed with the patient in detail in the preoperative area. After all of her questions were answered and consent was obtained, the patient was taken to the operating room. DESCRIPTION OF PROCEDURE IN DETAIL: Once in the operating room, general anesthesia was found to be adequate, she was placed in dorsal lithotomy position and prepped and draped in a normal sterile fashion. Bladder was emptied using a straight catheterization. Weighted speculum was inserted in the patient's vagina. A right angle retractor was used to visualize the cervix, which was grasped at 12 o'clock position using the long Allis clamp. Paracervical block was then performed at 3 and 9 o'clock positions using a 0.25% Marcaine 6 mL at each injection site. Once that was done, I took an 11 blade and opened up the nabothian cyst as evident at the ectocervix. A mucousy material consistent with the nabothian cyst was expressed from the opening that area and I then made it hemostatic using silver nitrate. I then gently sound the uterine cavity depth, which was found to be 8 cm. I gently dilated the cervix using Hegar dilators to a maximum dilatation approximately 4 to 5 mm, which allowed me to place a hysteroscope using the true clear fluid management system and normal saline as my visual medium. I advanced the hysteroscope into the endometrial cavity, which allowed me to visualize the endometrium, which appeared grossly normal. Bilateral tubal ostia are identified. There were no polyps or other abnormalities noted at the endometrium. I then removed the hysteroscope and performed a gentle curettage using a small endometrial curette. A moderate amount of tissue was collected and sent for pathology after which there was minimal to no bleeding noted from the cervix. All the instruments were then removed from the patient's vagina. The patient tolerated the procedure well and was sent to recovery area in a stable condition. Lap and sponge counts were correct at the end of the procedure. Instrument counts were correct as well. Job ID: [id number] DocumentID: [id number] Dictated Date: 09/10/2018 10:06:57 Pillow Cleaner Date: 09/10/2018 12:41:20 Dictated By: SACHIN ARVIZU DO
== END 2018-09-10 11:15 | disposition home or self-care (01) ==
LOC: SDC 07:34
PROVIDERS: ATTEND Obstetrics & Gynecology
DX: N94.6 Dysmenorrhea, unspecified (principal); N92.0 Excessive and frequent menstruation with regular cycle; R93.89 Abnormal findings on diagnostic imaging of other specified body structures; N88.8 Other specified noninflammatory disorders of cervix uteri; K21.9 Gastro-esophageal reflux disease without esophagitis; F41.9 Anxiety disorder, unspecified; G43.909 Migraine, unspecified, not intractable, without status migrainosus; F17.210 Nicotine dependence, cigarettes, uncomplicated; Z79.899 Other long term (current) drug therapy
CPT/HCPCS: 36415; 84703; 85025; 86850; 86900; 86901; 87081

== ENCOUNTER 2019-04-11 20:49 | Emergency (ER) | payer OTHER ==
[~2019-04-11] VITALS: Ht 154 cm; Wt 83.0 kg
[~2019-04-11 20:49] MED LIST changes: -DULO60CA58 PO; +DULO60CA59 PO; +HYDR-4226 PO; +IBUP-1773 PO; -OMEP20CA12 PO; +OMEP20CA13 PO
[2019-04-11 22:48] LABS: BILIRUBIN,URINE NEGATIVE (NEGATIVE); CLARITY,URINE CLEAR; COLOR,URINE YELLOW; GLUCOSE, URINE (UA) NEGATIVE (NEGATIVE); KETONES,URINE NEGATIVE (NEGATIVE); LEUKOCYTE ESTERASE ,URINE NEGATIVE (NEGATIVE); NITRITE,URINE NEGATIVE (NEGATIVE); PH,URINE 6 (5-9); PROTEIN,URINE NEGATIVE (NEGATIVE)
[2019-04-11 23:04] LABS: BACTERIA,URINE NEGATIVE /HPF; RBC,URINE 0-2 /HPF
[2019-04-12] MEDS ORDERED: KETOROLAC 60 MG/2 ML VIAL IM ONE
[2019-04-12] MEDS ORDERED: diphenhydrAMINE 50 MG/ML INJ (BENADRYL) IM ONE
[2019-04-12] MEDS ORDERED: ORPHENADRINE 60 MG/2 ML (NORFLEX) AMP IM ONE
[2019-04-12 00:10] LABS: AMPHETAMINE SCREEN, URINE POSITIVE (NEGATIVE); BARBITURATE SCREEN URINE POSITIVE (NEGATIVE); BENZODIAZEPINES SCREEN URINE NEGATIVE (NEGATIVE); CANNABINOID SCREEN, URINE NEGATIVE (NEGATIVE); COCAINE SCREEN URINE NEGATIVE (NEGATIVE); METHADONE STAT NEGATIVE (NEGATIVE); METHAMPHETAMINE SCREEN URINE S NEGATIVE (NEGATIVE); OPIATE SCREEN URINE POSITIVE (NEGATIVE); OXYCODONE STAT NEGATIVE (NEGATIVE); PROPOXYPHENE STAT NEGATIVE (NEGATIVE); TRICYCLIC ANTIDEPRESSANTS SCRE POSITIVE (NEGATIVE)
[2019-04-12] MEDS ORDERED: METH4TAB PO (00:19)
[2019-04-12] MEDS ORDERED: TIZA4TAB11 PO (00:19)
--- NOTE | 2019-04-12 00:20 | ED Back Pain ---
General Chief Complaint: Back Problems Stated Complaint: BACK PAIN Source of Information: Patient History of Present Illness Date Seen by Provider: Apr 11, 2019 Time Seen by Provider: 22:42 Initial Comments PT ARRIVES VIA POV C/O LOWER BACK PAIN HAS CHRONIC BACK PAIN, ESPECIALLY LOWER BACK PAIN, FOR YEARS THIS PAIN HAS BEEN WORSE THE LAST 3 DAYS--HAS HAD THIS SAME PAIN OFF AND ON FOR A LONG TIME AND IS NOT ANY DIFFERENT THAN WHAT SHE HAS HAD IN THE PAST STATES HER LOWER BACK "FEELS TIGHT" NO INJURY. 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 DENIES ANY LIFTING OR UNUSUAL ACTIVITY STATES SHE HAS NOT SEEN ANYONE FOR THIS PROBLEM "FOR A LONG TIME" --GOES TO [facility], FOR REFILLS ON PAIN MEDICATIONS. STATES SHE HAS NEVER BEEN TO PAIN MANAGEMENT OR ORTHOPEDIC [facility] FOR THIS PROBLEM LMP--NOW--IS ON ROSEAN[employer] PRO, AND IS CURRENTLY SPOTTING. Other Comments PCP: [facility] Allergies and Home Medications Allergies Coded Allergies: No Known Drug Allergies (Unverified , 09/04/18) Home Medications Alprazolam 1 Mg Tablet, 1 MG PO PRN, (Reported) Aripiprazole 5 Mg Tablet, 5 MG PO HS, (Reported) Aspirin/Acetaminophen/Caffeine 1 Each Tablet, 1 TAB PO BID PRN for HEADACHE, (Reported) Citalopram Hydrobromide 40 Mg Tablet, 40 MG PO DAILY, (Reported) Cyclobenzaprine HCl 10 Mg Tablet, 10 MG PO TID PRN for MUSCLE SPASMS, (Reported) Galcanezumab-Gnlm 120 Mg/1 Ml Pen.injctr, 120 MG SQ MONTHLY, (Reported) Hydrocodone/Acetaminophen 1 Each Tablet, 1 TAB PO Q4-6HR PRN for HEADACHE, (Reported) Hydrocodone/Acetaminophen 1 Each Tablet, 1 TAB PO Q4-6HR Prescribed by: SACHIN ARVIZU on 09/10/18 0850 Ibuprofen 600 Mg Tablet, 600 MG PO Q6H Prescribed by: SACHIN ARVIZU on 09/10/18 0850 Methylprednisolone 4 Mg Tab.ds.pk, 4 MG PO UD Prescribed by: LEEANNE WANG on 04/12/19 0019 Naproxen 500 Mg Tablet, 500 MG PO BID PRN for PAIN-MILD, (Reported) Omeprazole 20 Mg Capsule.dr, 20 MG PO DAILY, (Reported) Propranolol HCl 20 Mg Tablet, 20 MG PO BID, (Reported) Sumatriptan Succinate 50 Mg Tab, 50 MG PO UD Take at onset of headache, may repeat x 1 in 2 hours if headache persists. Prescribed by: LINH TOPETE on 03/19/18 1309 Tizanidine HCl 4 Mg Tablet, 4 MG PO TID Prescribed by: LEEANNE WANG on 04/12/19 0019 Topiramate 200 Mg Tablet, 200 MG PO BID, (Reported) Patient Home Medication List Home Medication List Reviewed: Yes Review of Systems Constitutional: no symptoms reported; No fever Respiratory: no symptoms reported Cardiovascular: no symptoms reported Gastrointestinal: no symptoms reported; No abdominal pain, No nausea, No vomiting Genitourinary: no symptoms reported Musculoskeletal: see HPI, back pain Skin: no symptoms reported Psychiatric/Neurological: No Symptoms Reported; Denies Numbness, Denies Pare sthesia, Denies Tingling, Denies Weakness Past Gsyaajb-Ebbxzy-Kuzklb Hx Patient Social History Recreational Drug Use: Yes (PT DENIES, BUT TESTED + FOR THC & AMPHETAMINES 04/11/19, AND + FOR METH IN PAST) Drug of Choice: DENIES BUT TESTED + FOR THC & AMPHETAMINES 04/11/19, ALSO + METH IN PAST Smoking Status: Current Everyday Smoker Type Used: Cigarettes 2nd Hand Smoke Exposure: Yes Recent Foreign Travel: No Contact w/Someone Who Travel: No Recent Hopitalizations: No Immunizations Up To Date Tetanus Booster (TDap): Unknown Seasonal Allergies Seasonal Allergies: No Past Medical History Surgeries: Yes (5 C-SECTIONS) Section Respiratory: No Cardiac: No Neurological: Yes Headaches /Migraines Reproductive Disorders: Yes Female Reproductive Disorders: Menstrual Problems Sexually Transmitted Disease: No HIV/AIDS: No Genitourinary: Yes UTI-Chronic Gastrointestinal: Yes Gastroesophageal Reflux, Chronic Constipation Musculoskeletal: Yes Arthritis, Chronic Back Pain Endocrine: No HEENT: Yes (GLASSES/CONTACTS) Loss of Vision: Bilateral Hearing Impairment: Denies Cancer: No Psychosocial: Yes Anxiety, Depression Integumentary: Yes (Chronic dermatitis of the hands) Blood Disorders: No Adverse Reaction/Blood Tranf: No (N/A) Family Medical History Family history: Hypertension 19 MOTHER No Pertinent Family Hx Physical Exam Vital Signs Capillary Refill : Height, Weight, BMI Height: 5'1.00" Weight: 179lbs. 4.0oz. 81.508890td; 33.9 BMI Method:Stated General Appearance: No Apparent Distress, WD/WN, Other (VERY DRAMATIC, WHEN STAFF IN ROOM. KEEPS EYES CLOSED AT ALL TIMES. WHEN STAFF ENTER ROOM, PT BEGINS MOANING AND SOBBING, ETC. PT ALSO MOVES VERY SLOWLY AND DRAMATICALLY WHEN STAFF IN ROOM. THIS BEHAVIOR STOPS WHEN STAFF NOT IN ROOM. ) Neck: Full Range of Motion, Normal Inspection Cardiovascular: Regular Rate, Rhythm, No Edema, Normal Peripheral Pulses Respiratory: Normal Breath Sounds Peripheral Pulses: 2+ Dorsalis Pedis (R), 2+ Left Dors-Pedis (L) Gastrointestinal: Non Tender, Soft Back: Other (DIFFUSE TENDERNESS TO ENTIRE BACK BUT STATES SHE IS MORE TENDER TO ENTIRE LOWER BACK. MILD MUSCLE SPASMS TO RIGHT PARAVERTEBRAL MUSCLES. ) Extremity: Normal Capillary Refill, Normal Inspection, Normal Range of Motion, Non Tender, No Calf Tenderness, No Pedal Edema Neurologic/Psychiatric: Alert, Oriented x3, No Motor/Sensory Deficits, correctional nurse II- XII Norm as Tested Skin: Normal Color, Warm/Dry; No Rash Progress/Results/Core Measures Results/Orders Lab Results Laboratory Tests Test 04/11/19 22:37 Range/Units Urine Color YELLOW Urine Clarity CLEAR Urine pH 6 5-9 Urine Specific Zeigler 1.010 L 1.016-1.022 Urine Protein NEGATIVE NEGATIVE Urine Glucose (UA) NEGATIVE NEGATIVE Urine Ketones NEGATIVE NEGATIVE Urine Nitrite NEGATIVE NEGATIVE Urine Bilirubin NEGATIVE NEGATIVE Urine Urobilinogen NORMAL NORMAL MG/DL Urine Leukocyte Esterase NEGATIVE NEGATIVE Urine RBC (Auto) 1+ H NEGATIVE Urine RBC 0-2 /HPF Urine WBC NONE /HPF Urine Crystals NONE /LPF Urine Bacteria NEGATIVE /HPF Urine Casts NONE /LPF Urine Mucus NEGATIVE /LPF Urine Culture Indicated NO Urine Test NEGATIVE NEGATIVE Urine Opiates Screen POSITIVE H NEGATIVE Urine Oxycodone Screen NEGATIVE NEGATIVE Urine Methadone Screen NEGATIVE NEGATIVE Urine Propoxyphene Screen NEGATIVE NEGATIVE Urine Barbiturates Screen POSITIVE H NEGATIVE Ur Tricyclic Antidepressants Screen POSITIVE H NEGATIVE Urine Phencyclidine Screen NEGATIVE NEGATIVE Urine Amphetamines Screen POSITIVE H NEGATIVE Urine Methamphetamines Screen NEGATIVE NEGATIVE Urine Benzodiazepines Screen NEGATIVE NEGATIVE Urine Cocaine Screen NEGATIVE NEGATIVE Urine Cannabinoids Screen NEGATIVE NEGATIVE My Orders Orders - LEEANNE WANG DO Urine Bedside (04/11/19 22:43) Ua Culture If Indicated (04/11/19 22:43) Hcg,Qualitative Urine (04/11/19 23:10) Drug Screen Stat (Urine) (04/11/19 23:52) Orphenadrine Injection (Norflex Injectio (04/12/19 00:00) Ketorolac Injection (Toradol Injection) (04/12/19 00:00) Diphenhydramine Injection (Benadryl Inje (04/12/19 00:00) Medications Given in ED Current Medications Medications Dose Ordered Sig/Franc Route Start Time Stop Time Status Last Admin Dose Admin Diphenhydramine HCl 50 mg ONCE ONCE IM 04/12/19 00:00 04/12/19 00:01 DC 04/12/19 00:08 50 MG Ketorolac Tromethamine 60 mg ONCE ONCE IM 04/12/19 00:00 04/12/19 00:01 DC 04/12/19 00:07 60 MG Orphenadrine Citrate 60 mg ONCE ONCE IM 04/12/19 00:00 04/12/19 00:01 DC 04/12/19 00:05 60 MG Departure Impression Primary Impression: Chronic back pain Additional Impression: Illicit drug use Disposition: HOME, SELF-CARE Condition: Stable Departure-Patient Inst. Referrals: [facility] (PCP/Family) Primary Care Physician Patient Instructions: MANAGING YOUR CHRONIC PAIN, Low Back Pain (DC) Add. Discharge Instructions: MOIST HEAT TO SORE AREAS AT 20 MINUTE INTERVALS FOLLOW UP WITH [facility] THIS WEEK FOR FURTHER CARE STOP YOUR FLEXERIL AND IBUPROFEN All discharge instructions reviewed with patient and/or family. Voiced understanding. Scripts Tizanidine HCl (Zanaflex) 4 Mg Tablet 4 MG PO TID, #10 TAB Prov: LEEANNE WANG DO 04/12/19 Methylprednisolone (Medrol) 4 Mg Tab.ds.pk 4 MG PO UD, #1 PKG Prov: LEEANNE WANG DO 04/12/19 LEEANNE WANG DO Apr 12, 2019 00:19 POS
[2019-04-12 00:22] VITALS: BP 106/72
== END 2019-04-12 00:30 | disposition home or self-care (01) ==
LOC: EDUNIT# 20:49 → ER 20:51
DX: G89.29 Other chronic pain (principal); M54.5 Low back pain; F12.90 Cannabis use, unspecified, uncomplicated; F15.90 Other stimulant use, unspecified, uncomplicated; F17.210 Nicotine dependence, cigarettes, uncomplicated; G43.909 Migraine, unspecified, not intractable, without status migrainosus; F41.9 Anxiety disorder, unspecified; F32.9 Major depressive disorder, single episode, unspecified; Z79.82 Long term (current) use of aspirin; Z87.442 Personal history of urinary calculi; Z82.49 Family history of ischemic heart disease and other diseases of the circulatory system
CPT/HCPCS: 80306; 81000; 84703

== ENCOUNTER 2020-02-08 10:44 | Emergency (ER) | payer OTHER ==
[~2020-02-08] VITALS: Ht 152 cm; Wt 82.0 kg
[~2020-02-08 10:44] MED LIST changes: +ACHD5005 PO; -HYDR-3812 PO; +METH4TAB PO; -OMEP20CA13 PO; +OMEP20CA18 PO; +TIZA4TAB11 PO
[2020-02-08 11:21] LABS: BASOPHILS % (AUTO) 0 % (0-10); EOSINOPHILS # (AUTO) 0.2 10^3/uL (0.0-0.3); EOSINOPHILS % (AUTO) 2 % (0-10); HEMATOCRIT 33 % (35-52); HEMOGLOBIN 10.3 G/DL (11.5-16.0); LYMPHOCYTES # (AUTO) 2.9 X 10^3 (1.0-4.0); LYMPHOCYTES % (AUTO) 27 % (12-44); MEAN CORPUSCULAR HEMOGLOBIN 29 PG (25-34); MEAN CORPUSCULAR HGB CONC 31 G/DL (32-36); MEAN CORPUSCULAR VOLUME 94 FL (80-99); MEAN PLATELET VOLUME 10.3 FL (7.4-10.4); MONOCYTES # (AUTO) 0.4 X 10^3 (0.0-1.0); MONOCYTES % (AUTO) 3 % (0-12); NEUTROPHILS # (AUTO) 7.2 X 10^3 (1.8-7.8); NEUTROPHILS % (AUTO) 67 % (42-75); PLATELET COUNT 355 10^3/uL (130-400); WHITE BLOOD COUNT 10.6 10^3/uL (4.3-11.0)
--- NOTE | 2020-02-08 11:23 | ED Chest Pain ---
General Stated Complaint: CHEST PAIN;SOA Source: patient Exam Limitations: no limitations History of Present Illness Date Seen by Provider: Feb 08, 2020 Time Seen by Provider: 11:19 Initial Comments This is a well appearing 39 yo female who presented for c/o of left sided chest pain that began upon awakening at 0600 this am. Pain is sharp, localized to left chest wall, intermittent, and worse with breathing. Currently rates 8/10 at this time. Took her home Hydrocodone 10/325mg around 0730 with minimal improvement. Has reproductive cough and occasional episodes of feeling short of breath. On Friday02/06/20 she was seen at [facility] for a sore throat. Reports negative strep test and has a current COVID test pending. Denies fever, chills, nausea, vomiting, abdominal pain, or dysuria. Timing/Duration: 1-2 days Severity/Quality: sharp Location: other (left chest wall ) Radiation: no radiation Activities at Onset: none Prior CP/Workup: no prior chest pain Modifying Factors: improves with breathing Associated Symptoms: No abdominal pain, No dizziness, No fever/chills; shortne ss of breath; No syncope Allergies and Home Medications Allergies Coded Allergies: No Known Drug Allergies (Unverified , 09/04/18) Home Medications Propranolol HCl 20 Mg Tablet, 20 MG PO BID, (Reported) Topiramate 200 Mg Tablet, 200 MG PO BID, (Reported) Patient Home Medication List Home Medication List Reviewed: Yes Review of Systems Review of Systems Constitutional: no symptoms reported EENTM: Throat Pain Respiratory: Cough, Shortness of Air; Denies Stridor, Denies Wheezing Cardiovascular: See HPI Gastrointestinal: No Symptoms Reported Genitourinary: No Symptoms Reported Musculoskeletal: joint pain (chronic ) Skin: no symptoms reported Psychiatric/Neurological: Anxiety, Depressed Endocrine: No Symptoms Reported Hematologic/Lymphatic: Anemia, Other (Consult with brake engineer tomorrow to "rule out lukemia" ) Past Bqtkbdy-Kflzzd-Zcazno Hx Patient Social History Drug of Choice: DENIES BUT TESTED + FOR THC & AMPHETAMINES 04/11/19, ALSO + METH IN PAST Type Used: Cigarettes 2nd Hand Smoke Exposure: Yes Recent Hopitalizations: No Immunizations Up To Date Tetanus Booster (TDap): Unknown Seasonal Allergies Seasonal Allergies: No Past Medical History Surgeries: Yes (5 C-SECTIONS) Section Respiratory: No Cardiac: No Neurological: Yes Headaches /Migraines Reproductive Disorders: Yes Female Reproductive Disorders: Menstrual Problems Sexually Transmitted Disease: No HIV/AIDS: No Genitourinary: Yes UTI-Chronic Gastrointestinal: Yes Gastroesophageal Reflux, Chronic Constipation Musculoskeletal: Yes Arthritis, Chronic Back Pain Endocrine: No HEENT: Yes (GLASSES/CONTACTS) Loss of Vision: Bilateral Hearing Impairment: Denies Cancer: No Psychosocial: Yes Anxiety, Depression Integumentary: Yes (Chronic dermatitis of the hands) Blood Disorders: No Adverse Reaction/Blood Tranf: No (N/A) Family Medical History Family history: Hypertension 19 MOTHER No Pertinent Family Hx Physical Exam Vital Signs Vital Signs - First Documented 02/08/20 02/08/20 10:44 10:50 Temp 36.6 Pulse 94 Resp 20 B/P (MAP) 135/76 (95) Pulse Ox 97 O2 Delivery Room Air Capillary Refill : Height, Weight, BMI Height: 5'1.00" Weight: 179lbs. 4.0oz. 81.138671lu; 34.00 BMI Method:Stated General Appearance: No Apparent Distress, WD/WN HEENT: PERRL/EOMI, Pharyngeal Erythema; No Tonsillar Exudate Neck: Full Range of Motion, Normal Inspection, Non Tender, Supple Respiratory: Lungs Clear, Normal Breath Sounds, No Accessory Muscle Use, No Respiratory Distress Cardiovascular: Regular Rate, Rhythm, No Murmur, Normal Peripheral Pulses Gastrointestinal: Normal Bowel Sounds, Non Tender, Soft, Distended Extremity: Normal Capillary Refill, Normal Inspection, Normal Range of Motion, No Pedal Edema Neurologic/Psychiatric: Alert, Oriented x3, No Motor/Sensory Deficits, Normal Mood/Affect Skin: Normal Color, Warm/Dry Focused Exam Lactate Level 02/08/20 11:40: Lactic Acid Level 2.21*H 02/08/20 13:50: Lactic Acid Level 1.27 Lactic Acid Level Laboratory Tests Test 02/08/20 11:40 02/08/20 13:50 Lactic Acid Level 2.21 MMOL/L (0.50-2.00) *H 1.27 MMOL/L (0.50-2.00) Progress/Results/Core Measures Results/Orders Lab Results Laboratory Tests Test 02/08/20 11:05 02/08/20 11:14 02/08/20 11:40 02/08/20 13:50 Range/Units White Blood Count 10.6 4.3-11.0 10^3/uL Red Blood Count 3.54 L 4.35-5.85 10^6/uL Hemoglobin 10.3 L 11.5-16.0 G/DL Hematocrit 33 L 35-52 % Mean Corpuscular Volume 94 80-99 FL Mean Corpuscular Hemoglobin 29 25-34 PG Mean Corpuscular Hemoglobin Concent 31 L 32-36 G/DL Red Cell Distribution Width 15.6 H 10.0-14.5 % Platelet Count 355 130-400 10^3/uL Mean Platelet Volume 10.3 7.4-10.4 FL Neutrophils (%) (Auto) 67 42-75 % Lymphocytes (%) (Auto) 27 12-44 % Monocytes (%) (Auto) 3 0-12 % Eosinophils (%) (Auto) 2 0-10 % Basophils (%) (Auto) 0 0-10 % Neutrophils # (Auto) 7.2 1.8-7.8 X 10^3 Lymphocytes # (Auto) 2.9 1.0-4.0 X 10^3 Monocytes # (Auto) 0.4 0.0-1.0 X 10^3 Eosinophils # (Auto) 0.2 0.0-0.3 10^3/uL Basophils # (Auto) 0.0 0.0-0.1 10^3/uL Fibrinogen 559 H 221-496 MG/DL D-Dimer 0.79 H 0.00-0.49 UG/ML Sodium Level 139 135-145 MMOL/L Potassium Level 3.8 3.6-5.0 MMOL/L Chloride Level 106 98-107 MMOL/L Carbon Dioxide Level 23 21-32 MMOL/L Anion Gap 10 5-14 MMOL/L Blood Urea Nitrogen 5 L 7-18 MG/DL Creatinine 0.65 0.60-1.30 MG/DL Estimat Glomerular Filtration Rate > 60 BUN/Creatinine Ratio 8 Glucose Level 164 H 70-105 MG/DL Calcium Level 8.5 8.5-10.1 MG/DL Corrected Calcium 9.1 8.5-10.1 MG/DL Ferritin 56.9 20.0-177.0 ng/mL Total Bilirubin 0.1 0.1-1.0 MG/DL Aspartate Amino Transf (AST/SGOT) 21 5-34 U/L Alanine Aminotransferase (ALT/SGPT) 26 0-55 U/L Alkaline Phosphatase 95 40-136 U/L Lactate Dehydrogenase 269 H 125-220 U/L Troponin I < 0.028 <0.028 NG/ML C-Reactive Protein High Sensitivity 6.87 H 0.00-0.50 MG/DL Total Protein 6.0 L 6.4-8.2 GM/DL Albumin 3.3 3.2-4.5 GM/DL Procalcitonin 0.05 <0.10 NG/ML Urine Color YELLOW Urine Clarity CLEAR Urine pH 7.0 5-9 Urine Specific [place] <=1.005 1.016-1.022 Urine Protein NEGATIVE NEGATIVE Urine Glucose (UA) NEGATIVE NEGATIVE Urine Ketones NEGATIVE NEGATIVE Urine Nitrite NEGATIVE NEGATIVE Urine Bilirubin NEGATIVE NEGATIVE Urine Urobilinogen 0.2 < = 1.0 MG/DL Urine Leukocyte Esterase NEGATIVE NEGATIVE Urine RBC (Auto) TRACE-I NEGATIVE Urine RBC RARE /HPF Urine WBC NONE /HPF Urine Squamous Epithelial Cells RARE /HPF Urine Crystals NONE /LPF Urine Bacteria TRACE /HPF Urine Casts NONE /LPF Urine Mucus NEGATIVE /LPF Urine Culture Indicated NO Lactic Acid Level 2.21 *H 1.27 0.50-2.00 MMOL/L My Orders Orders - CECY MAN APRN Monitor-Rhythm Ecg Trace Only (02/08/20 10:46) Urine Bedside (02/08/20 10:46) Cbc With Automated Diff (02/08/20 10:46) Comprehensive Metabolic Panel (02/08/20 10:46) Ferritin (02/08/20 10:46) LDH (02/08/20 10:46) Hs C Reactive Protein (02/08/20 10:46) Troponin I (02/08/20 10:46) Lactic Acid Analyzer (02/08/20 10:46) Fibrinogen (02/08/20 10:46) Ekg Tracing (02/08/20 10:46) Chest 1 View, Ap/Pa Only (02/08/20 10:46) Procalcitonin (Pct) (02/08/20 11:39) Ns Iv 1000 Ml (Sodium Chloride 0.9%) (02/08/20 12:01) Fibrin Degradation Products (02/08/20 12:36) Ketorolac Injection (Toradol Injection) (02/08/20 12:38) Urinalysis (02/08/20 12:56) Lactated Ringers (Lr 1000 Ml Iv Solution (02/08/20 12:56) Medications Given in ED Current Medications Medications Dose Ordered Sig/Franc Route Start Time Stop Time Status Last Admin Dose Admin Lactated Ringer's 1,000 ml @ ud STK-MED ONCE IV 02/08/20 12:56 02/08/20 13:01 DC 02/08/20 13:05 1,000 MLS/HR Sodium Chloride 1,000 ml @ STK-MED ONCE .ROUTE 02/08/20 12:01 02/08/20 12:05 DC 02/08/20 12:07 1,000 MLS/HR Vital Signs/I&O 02/08/20 02/08/20 02/08/20 10:44 10:50 15:30 Temp 36.6 Pulse 94 77 Resp 20 24 B/P (MAP) 135/76 (95) 118/77 Pulse Ox 97 96 O2 Delivery Room Air Room Air Progress Progress Note : Progress Note CC chest pain. Pain is localized to left chest wall and is likely lung related. Ordered EKG, cardiac monitoring, Troponin, and CXR. Basic labs, lactic, LDH, Procal, and Fibrin for further COVID evaluation. UA . Labs reviewed and are consistent with possible COVID findings. Hematology is unremarkable with no elevation in wbc, chemistry was also unremarkable. LDH n oted to be elevated at 269. CRP elevated at 6.87. Initial lactic acid 2.21, d- dimer 0.79, and pro-calcitonin is low. I discussed the elevation of d-dimer and reviewed the pros and cons of obtaining a CTA. I discussed with her that her her oxygen saturation is 98% on room air, heart rate 87bpm, and that her d-dimer was less than 1 were reassuring signs. However, we did discuss that COVID can cause hypercoagulation and her being a smoker could also increase her risk. . She opted to not have the CTa at this time, stating that she would return if her symptoms worsened. Her chest x-ray did not show any acute findings and her chest wall pain resolved with Toradol. She received a total of 2 L of crystalloids and her repeat lactic acid at 13:50 was decreased at 1.27. I reviewed her POC with her and she is agreeable with plan. 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 EXAMINATION: PA chest obtained at 11:36 a.m. and compared to 03/18/2018. FINDINGS: Heart and mediastinal silhouette are normal in appearance. There is no focal infiltrate or pneumothorax or pleural fluid. Ill-defined opacity over the right upper lobe seen on the prior study appears to have resolved. IMPRESSION: No acute abnormality visualized in the chest. Dictated on workstation # [id number] Dict: 02/08/20 1206 Trans: 02/08/20 1211 [facility] [id number] Interpreted by: BRIANA SPARROW MD Electronically signed by: Reviewed: Reviewed by Me Departure Impression Primary Impression: Chest wall pain Disposition: HOME, SELF-CARE Condition: Improved Departure-Patient Inst. Decision time for Depature: 15:00 Referrals: [facility] (PCP/Family) Primary Care Physician Patient Instructions: Chest Pain That Is Not Caused by the Heart (DC) Add. Discharge Instructions: Plan: 1. Discharge home. 2. You will need to Quarantine at home until you have the final results of your COVID screening. 3. Rest and drink plenty of fluids. 4. May take Ibuprofen 600mg every six hours as needed for chest wall pain. Take with food. 5. Return if you are having any worsening symptoms such as chest pain, shortness of breath, or any other new or concerning symptoms. Copy Copies To 1: [facility]/CECY OLIVAS APRN Feb 08, 2020 11:23
[2020-02-08 11:27] LABS: ALBUMIN 3.3 GM/DL (3.2-4.5); CHLORIDE 106 MMOL/L (98-107); POTASSIUM 3.8 MMOL/L (3.6-5.0); SODIUM 139 MMOL/L (135-145)
[2020-02-08 11:28] LABS: CALCIUM 8.5 MG/DL (8.5-10.1)
[2020-02-08 11:30] LABS: GLUCOSE 164 MG/DL (70-105)
[2020-02-08 11:31] LABS: BILIRUBIN,TOTAL 0.1 MG/DL (0.1-1.0); CARBON DIOXIDE 23 MMOL/L (21-32)
[2020-02-08 11:33] LABS: ALKALINE PHOSPHATASE 95 U/L (40-136); CREATININE SERUM 0.65 MG/DL (0.60-1.30); GFR ESTIMATED > 60
[2020-02-08] MEDS ORDERED: DICL75TA2 (11:33)
[2020-02-08] MEDS ORDERED: ALPR1TAB7 (11:33)
[2020-02-08] MEDS ORDERED: PREG150C46 (11:33)
[2020-02-08] MEDS ORDERED: HYDR-3820 (11:33)
[2020-02-08] MEDS ORDERED: BUPR150T14 (11:33)
[2020-02-08] MEDS ORDERED: AMIT25TA9 (11:33)
[2020-02-08] MEDS ORDERED: folic (11:33)
[2020-02-08] MEDS ORDERED: BACL10TA (11:33)
[2020-02-08 11:34] LABS: BUN/CREATININE RATIO 8
[2020-02-08 11:36] LABS: ALANINE AMINOTRANSFERASE 26 U/L (0-55)
[2020-02-08] MEDS ORDERED: NS IV 1000 ML 1,000 ML ONE (12:01)
--- NOTE | 2020-02-08 12:11 | Diagnostic Imaging Report ---
INDICATION: Left-sided chest pain, shortness of breath. EXAMINATION: PA chest obtained at 11:36 a.m. and compared to 03/18/2018. FINDINGS: Heart and mediastinal silhouette are normal in appearance. There is no focal infiltrate or pneumothorax or pleural fluid. Ill-defined opacity over the right upper lobe seen on the prior study appears to have resolved. IMPRESSION: No acute abnormality visualized in the chest. Dictated by: Dictated on workstation # [id number]
[2020-02-08] MEDS ORDERED: KETOROLAC 30 MG/ML VIAL IVP STA (12:38)
[2020-02-08] MEDS ORDERED: LACTATED RINGERS 1,000 ML IV ONE (12:56)
[2020-02-08 13:07] LABS: BILIRUBIN,URINE NEGATIVE (NEGATIVE); CLARITY,URINE CLEAR; COLOR,URINE YELLOW; GLUCOSE, URINE (UA) NEGATIVE (NEGATIVE); KETONES,URINE NEGATIVE (NEGATIVE); LEUKOCYTE ESTERASE ,URINE NEGATIVE (NEGATIVE); NITRITE,URINE NEGATIVE (NEGATIVE); PROTEIN,URINE NEGATIVE (NEGATIVE)
[2020-02-08 13:19] LABS: BACTERIA,URINE TRACE /HPF; RBC,URINE RARE /HPF; SQUAMOUS EPITHELIAL CELL,UR RARE /HPF
[2020-02-08 15:30] VITALS: BP 118/77
== END 2020-02-08 15:30 | disposition home or self-care (01) ==
LOC: EDUNIT# 10:44 → ER 10:46
DX: R07.89 Other chest pain (principal); G43.909 Migraine, unspecified, not intractable, without status migrainosus; F41.9 Anxiety disorder, unspecified; Z82.49 Family history of ischemic heart disease and other diseases of the circulatory system; Z77.22 Contact with and (suspected) exposure to environmental tobacco smoke (acute) (chronic)
CPT/HCPCS: 36415; 71045; 80053; 81000; 82728; 83605; 83615; 84145; 84484; 84703; 85025; 85379; 85384; 86141; 93005; 93041; 96361; 96374

== ENCOUNTER 2020-09-05 19:08 | Emergency (ER) | payer OTHER ==
[~2020-09-05] VITALS: Ht 152 cm; Wt 90.0 kg
[~2020-09-05 19:08] MED LIST changes: +ALPR1TAB7; +AMIT25TA9; +BACL10TA; +BUPR150T14; +BUTA-235 PO; -BUTA1TAB9 PO; -CLIN150C17 PO; +CLIN150C18 PO; -CLIN300C11 PO; +CLIN300C12 PO; +DICL75TA2; +HYDR-3820; +PREG150C46; +folic
[2020-09-05] MEDS ORDERED: methylPREDNISolone 125 MG (Solu-MEDROL) VIAL IM ONE (19:30)
[2020-09-05] MEDS ORDERED: FAMOTIDINE 20 MG (PEPCID) TABLET PO ONE (19:30)
[2020-09-05] MEDS ORDERED: diphenhydrAMINE 50 MG/ML INJ (BENADRYL) IM ONE (19:30)
--- NOTE | 2020-09-05 19:34 | ED General ---
General Chief Complaint: Allergic Reaction Stated Complaint: ALLERGIC REACTION ITCHING ALL OVER Nursing Triage Note: generalized itching after taking oxycodone,amoxicillin, motrin Nursing Sepsis Screen: No Definite Risk Source of Information: Patient History of Present Illness Date Seen by Provider: Sep 05, 2020 Time Seen by Provider: 19:25 Initial Comments PT ARRIVES VIA POV FROM HOME STATES SHE GOT A TOOTH PULLED EARLIER TODAY WAS PRESCRIBED OXYCODONE, AMOXIL AND MOTRIN--STATES SHE HAS HAD ALL OF THESE MEDICATIONS BEFORE STATES SHE TOOK 2 OXYCODONE, AMOXIL AND MOTRIN APPROXIMATELY AN HOUR AGO, AND A FEW MINUTES AFTER TAKING MEDICATIONS, SHE BEGAN TO HAVE SEVERE ITCHING ALL OVER, INCLUDING HER SCALP NO SWELLING ANYWHERE NO DIFFICULTY BREATHING OR SWALLOWING NO SIGNIFICANT RASH AT THIS TIME. TOOK BENADRYL 50 MG PRIOR TO ARRIVAL. NO HISTORY OF SIMILAR PT STATES SHE IS ON HYDROCODONE THREE TIMES A DAY EVERY DAY FOR HER CHRONIC BACK PAIN, STATES SHE RAN OUT A FEW OF DAYS AGO, AND CANNOT REFILL IT UNTIL 09/08/20 SHE REPORTS THAT THE DENTIST CALLED [facility] AND "OK'D" OXYCODONE FOR HER. PER MED RECONCILIATION, PT LAST FILLED RX FOR HYDROCODONE #84 ON 08/10/20 PT ALSO LAST FILLED IBUPROFEN 800 MG #270 ON 07/12/20. [facility] and Home Medications Allergies Coded Allergies: No Known Drug Allergies (Unverified , 09/04/18) Home Medications Famotidine 40 Mg Tablet, 40 MG PO DAILY Prescribed by: LEEANNE WANG on 09/05/202006 Hydroxyzine Pamoate 50 Mg Capsule, 50 MG PO Q6H PRN for ITCHING Prescribed by: LEEANNE WANG on 09/05/202006 Prednisone 20 Mg Tab, 40 MG PO DAILY Prescribed by: LEEANNE WANG on 09/05/20 2007 Propranolol HCl 20 Mg Tablet, 20 MG PO BID, (Reported) Topiramate 200 Mg Tablet, 200 MG PO BID, (Reported) Patient Home Medication List Home Medication List Reviewed: Yes Review of Systems Review of Systems Constitutional: no symptoms reported EENTM: see HPI; No throat swelling Respiratory: no symptoms reported; No cough, No short of breath, No wheezing Cardiovascular: no symptoms reported Gastrointestinal: no symptoms reported Genitourinary: no symptoms reported Musculoskeletal: no symptoms reported Skin: see HPI, pruritus; No rash Psychiatric/Neurological: Anxiety Hematologic/Lymphatic: No Symptoms Reported Immunological/Allergic: no symptoms reported Past Clmejdn-Fkytqe-Wqhrub Hx Past Med/Social Hx: Reviewed and Corrections made Patient Social History Alcohol Use: Denies Use Drug of Choice: denies Smoking Status: Current Everyday Smoker Type Used: Cigarettes 2nd Hand Smoke Exposure: Yes Recent Infectious Disease Expo: No Recent Hopitalizations: No Immunizations Up To Date Tetanus Booster (TDap): Unknown Seasonal Allergies Seasonal Allergies: No Past Medical History Surgeries: Yes (5 C-SECTIONS) Section Respiratory: No Cardiac: No Neurological: Yes Headaches /Migraines : No Reproductive Disorders: Yes Female Reproductive Disorders: Menstrual Problems Sexually Transmitted Disease: No HIV/AIDS: No Genitourinary: Yes UTI-Chronic Gastrointestinal: Yes Gastroesophageal Reflux, Chronic Constipation Musculoskeletal: Yes Arthritis, Chronic Back Pain Endocrine: No HEENT: Yes (GLASSES/CONTACTS) Loss of Vision: Bilateral Hearing Impairment: Denies Cancer: No Psychosocial: Yes Anxiety, Depression Integumentary: Yes (Chronic dermatitis of the hands) Blood Disorders: No Adverse Reaction/Blood Tranf: No (N/A) Family Medical History Family history: Hypertension 19 MOTHER No Pertinent Family Hx SOCIAL HISTORY: -ETOH--DENIES USE -DRUGS--DENIES USE BUT HAS TESTED + FOR AMPHETAMINES, METHAMPHETAMINES AND THC -SMOKES 1 PPD Physical Exam Vital Signs Vital Signs - First Documented 09/05/20 19:17 Temp 36.6 Pulse 116 Resp 20 B/P (MAP) 135/72 (93) Pulse Ox 97 O2 Delivery Room Air Capillary Refill : Less Than 3 Seconds Height, Weight, BMI Height: 5'1.00" Weight: 179lbs. 4.0oz. 81.450621hq; 38.00 BMI Method:Stated General Appearance: Other (VERY ANXIOUS, CONSTANT MOVEMENTS, CONSTANT SCRATCHING, CANNOT SIT OR LAY OR STAND STILL. ) HEENT: Normal ENT Inspection, Other (NO SWELLING OF LIPS OR TONGUE OR PHARYNX OR UVULA. EXTRACTION SITE TO RIGHT UPPER PRE-MOLAR AREA WITH NORMAL APPEARANCE. NO BLEEDING OR SIGNIFICANT SWELLING. ) Respiratory: Normal Breath Sounds, No Accessory Muscle Use, No Respiratory Distress Cardiovascular: No Murmur, Tachycardia Extremity: Normal Inspection, No Pedal Edema Neurologic/Psychiatric: Alert, Oriented x3, No Motor/Sensory Deficits Skin: Normal Color, Warm/Dry; No Rash Progress/Results/Core Measures Suspected Sepsis Recent Fever Within 48 Hours: No Infection Criteria Present: None New/Unexplained Altered Menta: No Sepsis Screen: No Definite Risk SIRS Temperature: Pulse: 116 Respiratory Rate: 20 Blood Pressure 135 /72 Mean: 93 Results/Orders My Orders Orders - LEEANNE WANG DO Methylprednisolone Sod Succ (Solu-Medrol (09/05/20 19:30) Diphenhydramine Injection (Benadryl Inje (09/05/20 19:30) Famotidine Tablet (Pepcid Tablet) (09/05/20 19:30) Rx-Hydroxyzine Pamoate (Rx-Vistaril) (09/05/20 20:21) Medications Given in ED Current Medications Medications Dose Ordered Sig/Franc Route Start Time Stop Time Status Last Admin Dose Admin Diphenhydramine HCl 50 mg ONCE ONCE IM 09/05/20 19:30 09/05/20 19:31 DC 09/05/20 19:33 50 MG Famotidine 40 mg ONCE ONCE PO 09/05/20 19:30 09/05/20 19:31 DC 09/05/20 19:33 40 MG Methylprednisolone Sodium Succinate 125 mg ONCE ONCE IM 09/05/20 19:30 09/05/20 19:31 DC 09/05/20 19:33 125 MG Vital Signs/I&O 09/05/20 09/05/20 19:17 20:34 Temp 36.6 36.5 Pulse 116 67 Resp 20 18 B/P (MAP) 135/72 (93) 99/73 (93) Pulse Ox 97 98 O2 Delivery Room Air Room Air Capillary Refill : Less Than 3 Seconds Blood Pressure Mean: 93 Progress Note : Progress Note GIVEN IM BENADRYL AND SOLU-MEDROL AND PO PEPCID, WITH IMPROVEMENT IN SYMPTOMS. PT NOW RESTING AND SLEEPING OFF AND ON Departure Impression Primary Impression: Allergic reaction caused by a drug Disposition: 01 HOME, SELF-CARE Condition: Improved Departure-Patient Inst. Referrals: [facility] (PCP/Family) Primary Care Physician Patient Instructions: Drug Allergy Add. Discharge Instructions: CONTINUE AMOXIL AND MOTRIN YOU MAY ALSO TAKE TYLENOL 1 GRAM 4 TIMES A DAY FOR PAIN FOLLOW UP WITH [facility] TOMORROW FOR FURTHER EVALUATION AND PAIN MANAGEMENT All discharge instructions reviewed with patient and/or family. Voiced understanding. Scripts Hydroxyzine Pamoate (Hydroxyzine Pamoate) 50 Mg Capsule 50 MG PO Q6H PRN for ITCHING, #15 CAP Prov: LEEANNE WANG DO 09/05/20 Famotidine (Pepcid) 40 Mg Tablet 40 MG PO DAILY, #10 TAB Prov: LEEANNE WANG DO 09/05/20 Prednisone (Prednisone) 20 Mg Tab 40 MG PO DAILY, #6 TAB 0 Refills Prov: LEEANNE WANG DO 09/05/20 LEEANNE WANG DO Sep 05, 2020 19:34
[2020-09-05] MEDS ORDERED: PRD20T PO (20:07)
[2020-09-05] MEDS ORDERED: HYDR50CA3 PO (20:07)
[2020-09-05] MEDS ORDERED: FAMO40TA72 PO (20:07)
[2020-09-05] MEDS ORDERED: RX-HYDROXYZINE PAMOATE 25 MG CAP #4 PO STA (20:21)
[2020-09-05 20:34] VITALS: BP 99/73
== END 2020-09-05 20:35 | disposition home or self-care (01) ==
LOC: EDUNIT# 19:08 → ER 19:09
DX: L29.9 Pruritus, unspecified (principal); T40.2X5A Adverse effect of other opioids, initial encounter; T36.0X5A Adverse effect of penicillins, initial encounter; T39.315A Adverse effect of propionic acid derivatives, initial encounter; T40.2X6A Underdosing of other opioids, initial encounter; F41.9 Anxiety disorder, unspecified; F32.9 Major depressive disorder, single episode, unspecified; G43.909 Migraine, unspecified, not intractable, without status migrainosus; K21.9 Gastro-esophageal reflux disease without esophagitis; F17.210 Nicotine dependence, cigarettes, uncomplicated; Z91.14 Patient's other noncompliance with medication regimen; Z79.52 Long term (current) use of systemic steroids
CPT/HCPCS: 99284

== ENCOUNTER → 2020-09-19 | Outpatient (CLI) | payer OTHER ==
[~2020-09-19] MED LIST changes: +FAMO40TA72 PO; +HYDR50CA3 PO
--- NOTE | 2020-09-19 13:34 | Diagnostic Imaging Report ---
PROCEDURE: MRI lumbar spine. TECHNIQUE: Multiplanar, multisequence MRI of the lumbar spine was performed without contrast. DATE: September 19, 2020. COMPARISON: Lumbar spine radiographs September 01, 2008. INDICATION: 39-year-old female, bilateral low back pain. FINDINGS: The alignment of the lumbar spine is unremarkable. There is no evidence of a diffuse marrow infiltrating or replacing process. There is no identified focal concerning bone lesion. There is moderate disc height loss at L4-L5. There is severe disc height loss at L5-S1. There are mild Modic endplate degenerative related changes adjacent to the L5-S1 disc space. The visualized cord and conus medullaris is unremarkable and terminates at the L1 level. L1-L2: There is no disc bulge. The facet joints and ligamentum flavum are unremarkable. There is no foraminal narrowing. There is no spinal canal stenosis. L2-L3: There is no disc bulge. The facet joints and ligamentum flavum are unremarkable. There is no foraminal narrowing. There is no spinal canal stenosis. L3-L4: There is an annular tear with a very small posterior disc protrusion. There is no nerve root contact. The facet joints and ligamentum flavum are unremarkable. There is no foraminal narrowing. There is no spinal canal stenosis. L4-L5: There is an annular tear with a right paracentral disc extrusion extending just below the superior endplate of L5 by approximately 3 mm. There is no identified nerve root contact. The facet joints and ligamentum flavum are unremarkable. There is no foraminal narrowing. There is mild spinal canal stenosis. L5-S1: There is mild diffuse disc bulge. There is an annular tear and superimposed left paracentral disc protrusion without definite nerve root contact. The facet joints and ligamentum flavum are unremarkable. There is no foraminal narrowing. There is no high-grade spinal canal stenosis. IMPRESSION: Annular tears and disc protrusions/extrusions at L3-L4, L4-L5, and L5-S1 as described above. There is mild spinal stenosis at L4-L5. There is no high-grade foraminal narrowing. There is no clear nerve root contact by a disc protrusion or extrusion. Dictated by: Dictated on workstation # [id number]
== END ==
LOC: RAD 10:03
PROVIDERS: ATTEND Physician Assistant
DX: M51.36 Other intervertebral disc degeneration, lumbar region (principal); M51.37 Other intervertebral disc degeneration, lumbosacral region; M48.061 Spinal stenosis, lumbar region without neurogenic claudication
CPT/HCPCS: 72148

== ENCOUNTER 2021-04-10 13:45 | Outpatient (RCR) | payer OTHER ==
[~2021-04-10 13:45] MED LIST changes: +CLIN-144 PO; -CLIN150C18 PO; +CLIN150C20 PO; -CLIN300C12 PO; +CYCL10TA25 PO
== END 2021-05-01 13:19 | disposition home or self-care (01) ==
PROVIDERS: ATTEND Anesthesiology Pain Medicine
DX: M51.17 Intervertebral disc disorders with radiculopathy, lumbosacral region (principal)

== ENCOUNTER 2021-12-12 06:49 | Emergency (ER) | payer OTHER ==
[~2021-12-12] VITALS: Ht 152.4 cm; Wt 77.0 kg
[~2021-12-12 06:49] MED LIST changes: -ASPI-789 PO; +ASPI1TAB23 PO; +BUPR-105; -BUPR150T14
[2021-12-12] MEDS ORDERED: NS IV 500 ML 500 ML IV ONE (08:00)
--- NOTE | 2021-12-12 08:26 | ED GU-Female ---
General Chief Complaint: OB < 20 WEEKS Stated Complaint: ABD PAIN,VAGINAL SPOTTING,5WKS & 4 DAYS PREG Nursing Triage Note: PT AMB TO RM 7 A/O X4. PT STATED THAT SHE IS AND STATES THAT SHE HAD PINK DISCHARGE WHEN SHE WIPED THIS MORNING. CALL LIGHT IN REACH AND BED IN LOWEST SETTING. Source: patient History of Present Illness Date Seen by Provider: Dec 12, 2021 Time Seen by Provider: 08:30 Initial Comments Patient here for chief complaint of little bit of pink-tinged on wiping this morning twice. She is having some lower abdominal cramping and pain 8 out of 10. She is G6, P5 aborta 1 at 5 weeks and 4 days with an LMP of 11/03/2021. She plans to establish care with Dr. Moreira. She has had no imaging. She already is taking hydrocodone 10 x 325 and Xanax and weaning down on this. Allergies and Home Medications Allergies Coded Allergies: No Known Drug Allergies (Unverified , 09/04/18) Patient Home Medication List Home Medication List Reviewed: Yes Alprazolam (Alprazolam) 1 Mg Tablet, (Reported) Entered as Reported by: DAVID DEJESUS on 02/08/20 1133 Amitriptyline HCl (Amitriptyline HCl) 25 Mg Tablet, (Reported) Entered as Reported by: DAVID DEJESUS on 02/08/20 1133 Baclofen (Baclofen) 10 Mg Tablet, (Reported) Entered as Reported by: DAVID DEJESUS on 02/08/20 1133 Bupropion HCl (Bupropion HCl Sr) 150 Mg Tablet.er, (Reported) Entered as Reported by: DAVID DEJESUS on 02/08/20 1133 Diclofenac Sodium (Diclofenac Sodium) 75 Mg Tablet.dr, (Reported) Entered as Reported by: DAVID DEJESUS on 02/08/20 1133 Famotidine (Pepcid) 40 Mg Tablet, 40 MG PO DAILY Prescribed by: LEEANNE WANG on 09/05/202006 Hydrocodone/Acetaminophen (Hydrocodone-Acetamin 10-325 mg) 1 Each Tablet, (Reported) Entered as Reported by: DAVID DEJESUS on 02/08/20 1133 Hydroxyzine Pamoate (Hydroxyzine Pamoate) 50 Mg Capsule, 50 MG PO Q6H PRN for ITCHING Prescribed by: LEEANNE WANG on 09/05/202006 Prednisone (Prednisone) 20 Mg Tab, 40 MG PO DAILY Prescribed by: LEEANNE WANG on 09/05/202006 Pregabalin (Pregabalin) 150 Mg Capsule, (Reported) Entered as Reported by: DAVID DEJESUS on 02/08/20 1133 Propranolol HCl (Propranolol HCl) 20 Mg Tablet, 20 MG PO BID, (Reported) Entered as Reported by: JOSE SANTOS on 09/04/18 1140 Topiramate (Topamax) 200 Mg Tablet, 200 MG PO BID, (Reported) Entered as Reported by: JOSE SANTOS on 09/04/18 1140 [folic] , (Reported) Entered as Reported by: DAVID DEJESUS on 02/08/20 1133 Review of Systems Review of Systems Constitutional: No chills, No diaphoresis Respiratory: No cough, No dyspnea on exertion Cardiovascular: No chest pain, No palpitations Gastrointestinal: No abdominal pain, No nausea, No vomiting All Other Systemes Reviewed Negative Unless Noted: Yes Past Mgxkfxv-Mrdcbf-Lencjs Hx Patient Social History Tobacco Use?: Yes Tobacco type used: Cigarettes Smoking Status: Current Everyday Smoker Substance use?: No Alcohol Use?: No Pt feels they are or have been: No Immunizations Up To Date Tetanus Booster (TDap): Unknown Influenza Vaccine Up-to-Date: No; Not Current Seasonal Allergies Seasonal Allergies: No Past Medical History Surgeries: Yes (5 C-SECTIONS) Section Respiratory: No Cardiac: No Neurological: Yes Headaches /Migraines Last Menstrual Period: November 03, 2021 Reproductive Disorders: Yes Female Reproductive Disorders: Menstrual Problems Sexually Transmitted Disease: No HIV/AIDS: No Genitourinary: Yes UTI-Chronic Gastrointestinal: Yes Gastroesophageal Reflux, Chronic Constipation Musculoskeletal: Yes Arthritis, Chronic Back Pain Endocrine: No HEENT: Yes (GLASSES/CONTACTS) Loss of Vision: Bilateral Hearing Impairment: Denies Cancer: No Psychosocial: Yes Anxiety, Depression Integumentary: Yes (Chronic dermatitis of the hands) Blood Disorders: No Adverse Reaction/Blood Tranf: No (N/A) Family Medical History Family history: Hypertension 19 MOTHER No Pertinent Family Hx SOCIAL HISTORY: -ETOH--DENIES USE -DRUGS--DENIES USE BUT HAS TESTED + FOR AMPHETAMINES, METHAMPHETAMINES AND THC -SMOKES 1 PPD Physical Exam Vital Signs Vital Signs - First Documented 12/12/21 07:19 Temp 36.4 Pulse 83 Resp 16 B/P (MAP) 122/87 (99) Pulse Ox 98 O2 Delivery Room Air Capillary Refill : Less Than 3 Seconds Height, Weight, BMI Height: 5'1.00" Weight: 179lbs. 4.0oz. 81.161541hn; 33.00 BMI Method:Stated General Appearance: WD/WN, no apparent distress HEENT: PERRL/EOMI, pharynx normal Neck: full range of motion, normal inspection Cardiovascular: normal peripheral pulses, regular rate, rhythm Respiratory: normal breath sounds, no respiratory distress, no accessory muscle use Gastrointestinal: normal bowel sounds, non tender, soft Extremities: normal range of motion, non-tender, normal inspection, normal capillary refill Neurologic/Psychiatric: alert, normal mood/affect, oriented x 3 Skin: normal color, warm/dry Progress/Results/Core Measures Suspected Sepsis SIRS Temperature: Pulse: 83 Respiratory Rate: 16 Laboratory Tests 12/12/21 08:48: White Blood Count 13.5H Blood Pressure 122 /87 Mean: 99 Laboratory Tests 12/12/21 08:48: Creatinine 0.66, Platelet Count 372 Results/Orders Lab Results Laboratory Tests Test 12/12/21 08:48 Range/Units White Blood Count 13.5 H 4.3-11.0 10^3/uL Red Blood Count 4.41 3.80-5.11 10^6/uL Hemoglobin 12.7 11.5-16.0 g/dL Hematocrit 40 35-52 % Mean Corpuscular Volume 91 80-99 fL Mean Corpuscular Hemoglobin 29 25-34 pg Mean Corpuscular Hemoglobin Concent 32 32-36 g/dL Red Cell Distribution Width 18.2 H 10.0-14.5 % Platelet Count 372 130-400 10^3/uL Mean Platelet Volume 10.7 9.0-12.2 fL Immature Granulocyte % (Auto) 1 % Neutrophils (%) (Auto) 69 42-75 % Lymphocytes (%) (Auto) 23 12-44 % Monocytes (%) (Auto) 5 0-12 % Eosinophils (%) (Auto) 2 0-10 % Basophils (%) (Auto) 1 0-10 % Neutrophils # (Auto) 9.2 H 1.8-7.8 10^3/uL Lymphocytes # (Auto) 3.1 1.0-4.0 10^3/uL Monocytes # (Auto) 0.7 0.0-1.0 10^3/uL Eosinophils # (Auto) 0.3 0.0-0.3 10^3/uL Basophils # (Auto) 0.1 0.0-0.1 10^3/uL Immature Granulocyte # (Auto) 0.1 0.0-0.1 10^3/uL Sodium Level 140 135-145 MMOL/L Potassium Level 3.9 3.6-5.0 MMOL/L Chloride Level 108 H 98-107 MMOL/L Carbon Dioxide Level 22 21-32 MMOL/L Anion Gap 10 5-14 MMOL/L Blood Urea Nitrogen 6 L 7-18 MG/DL Creatinine 0.66 0.60-1.30 MG/DL Estimat Glomerular Filtration Rate 114 BUN/Creatinine Ratio 9 Glucose Level 99 70-105 MG/DL Calcium Level 9.6 8.5-10.1 MG/DL Human Chorionic Gonadotropin, Quant 947 H <5 MIU/ML My Orders Orders - AIME PEREZ Cbc With Automated Diff (12/12/21 07:11) Hcg,Quantitative (12/12/21 07:11) Ed Iv/Invasive Line Start (12/12/21 07:11) Basic Metabolic Panel (12/12/21 07:11) Urine Bedside (12/12/21 07:11) Us Ob Single Fetus<14 [id number] (12/12/21 07:58) Ed Iv/Invasive Line Start (12/12/21 07:58) Ns Iv 500 Ml (Sodium Chloride 0.9%) (12/12/21 08:00) Medications Given in ED Current Medications Medications Dose Ordered Sig/Franc Route Start Time Stop Time Status Last Admin Dose Admin Sodium Chloride 500 ml @ 0 mls/hr Q0M ONCE IV 12/12/21 08:00 12/12/21 08:01 DC 12/12/21 08:51 500 MLS/HR Vital Signs/I&O 12/12/21 12/12/21 07:19 11:39 Temp 36.4 Pulse 83 82 Resp 16 14 B/P (MAP) 122/87 (99) 103/66 Pulse Ox 98 95 O2 Delivery Room Air Room Air Capillary Refill : Less Than 3 Seconds Blood Pressure Mean: 99 Departure Impression Primary Impression: Threatened miscarriage in early Disposition: 01 HOME, SELF-CARE Condition: Stable Departure-Patient Inst. Decision time for Depature: 11:03 Referrals: WILBERT KWONG (PCP) Primary Care Physician [facility] (Family) Primary Care Physician SACHIN MOREIRA DO Patient Instructions: Threatened Miscarriage (DC) Add. Discharge Instructions: Drink plenty fluids. Nothing in the vagina until you see your doctor. Keep your follow-up appointment on Friday. Get a repeat hCG quantitative lab drawn prior to your appointment on Friday morning. Return to the ER for heavy bleeding with blood clots larger than the chickens egg, chest pain, shortness of air or severe pain that doubles you over and will not relent despite Tylenol. All discharge instructions reviewed with patient and/or family. Voiced understanding. Work/School Note: Work Release Form Date Seen in the Emergency Department: Dec 12, 2021 Return to Work: Dec 13, 2021 Restrictions: No Restrictions Copy Copies To 1: SACHIN MOREIRA DO AIME PEREZ Dec 12, 2021 08:26
[2021-12-12 08:58] LABS: BASOPHILS # (AUTO) 0.1 10^3/uL (0.0-0.1); BASOPHILS % (AUTO) 1 % (0-10); EOSINOPHILS # (AUTO) 0.3 10^3/uL (0.0-0.3); EOSINOPHILS % (AUTO) 2 % (0-10); HEMATOCRIT 40 % (35-52); HEMOGLOBIN 12.7 g/dL (11.5-16.0); LYMPHOCYTES # (AUTO) 3.1 10^3/uL (1.0-4.0); LYMPHOCYTES % (AUTO) 23 % (12-44); MEAN CORPUSCULAR HEMOGLOBIN 29 pg (25-34); MEAN CORPUSCULAR HGB CONC 32 g/dL (32-36); MEAN CORPUSCULAR VOLUME 91 fL (80-99); MEAN PLATELET VOLUME 10.7 fL (9.0-12.2); MONOCYTES # (AUTO) 0.7 10^3/uL (0.0-1.0); MONOCYTES % (AUTO) 5 % (0-12); NEUTROPHILS # (AUTO) 9.2 10^3/uL (1.8-7.8); NEUTROPHILS % (AUTO) 69 % (42-75); PLATELET COUNT 372 10^3/uL (130-400); WHITE BLOOD COUNT 13.5 10^3/uL (4.3-11.0)
--- NOTE | 2021-12-12 09:05 | Diagnostic Imaging Report ---
PROCEDURE: US OB SINGLE FETUS <14 WKS. TECHNIQUE: Multiple real-time grayscale images were obtained over the gravid uterus in various projections. INDICATION: Abdominal pain. Spotting. COMPARISON: None. FINDINGS: The uterus measures 11.8 x 6.0 x 6.7 cm. A sonolucent focus seen within the endometrium measuring 0.4 cm. This is consistent with a 4 week 6 day gestation. No evidence of pole or yolk sac. The right ovary is not visualized due to overlying bowel gas. The left ovary measures 1.5 x 2.0 x 1.5 cm. Normal blood flow is seen to the left ovary. No evidence of adnexal mass or free fluid. IMPRESSION: 1. Small sonolucent focus within the endometrium, which may represent a gestational sac corresponding to a 4 week 6 day gestation. Recommend continued follow-up with serial beta hCGs and pelvic ultrasound as indicated. 2. Normal sonographic appearance of the left ovary. The right ovary is not visualized due to overlying bowel gas. No adnexal mass or free fluid. Dictated by: Dictated on workstation # [id number]
[2021-12-12 09:10] LABS: POTASSIUM 3.9 MMOL/L (3.6-5.0)
[2021-12-12 09:11] LABS: CALCIUM 9.6 MG/DL (8.5-10.1)
[2021-12-12 09:15] LABS: CREATININE SERUM 0.66 MG/DL (0.60-1.30)
[2021-12-12 11:39] VITALS: BP 103/66
== END 2021-12-12 11:38 | disposition home or self-care (01) ==
LOC: EDUNIT# 06:49 → ER 06:53
DX: O20.0 Threatened abortion (principal); Z3A.01 Less than 8 weeks gestation of pregnancy
CPT/HCPCS: 36415; 76801; 80048; 84702; 85025

== ENCOUNTER → 2021-12-14 | Outpatient (CLI) | payer OTHER | LOC: LAB | PROVIDERS: ATTEND Emergency Medicine | DX: O20.0 Threatened abortion (principal) | CPT/HCPCS: 36415; 84702 ==

== ENCOUNTER 2022-12-17 21:09 | Emergency (ER) | payer OTHER ==
[~2022-12-17] VITALS: Ht 152.4 cm; Wt 86.6 kg
[2022-12-17 21:48] LABS: BILIRUBIN,URINE NEGATIVE (NEGATIVE); CLARITY,URINE CLOUDY; COLOR,URINE YELLOW; GLUCOSE, URINE (UA) TRACE (NEGATIVE); KETONES,URINE NEGATIVE (NEGATIVE); LEUKOCYTE ESTERASE ,URINE TRACE (NEGATIVE); NITRITE,URINE POSITIVE (NEGATIVE); PH,URINE 5.5 (5-9); PROTEIN,URINE 2+ (NEGATIVE)
[2022-12-17] MEDS ORDERED: LACTATED RINGERS 1,000 ML IV ONE (22:00)
[2022-12-17] MEDS ORDERED: methylPREDNISolone 125 MG (Solu-MEDROL) VIAL IVP ONE (22:00)
[2022-12-17] MEDS ORDERED: FAMOTIDINE 20MG/2ML IV (PEPCID) IVP ONE (22:00)
[2022-12-17 22:07] LABS: BACTERIA,URINE MODERATE /HPF; RBC,URINE >100 /HPF
[2022-12-17] MEDS ORDERED: TRIM/SULFAMETH 160/800 (SEPTRA DS) TAB PO ONE (23:00)
[2022-12-17] MEDS ORDERED: FAMO-119 PO (23:43)
[2022-12-17] MEDS ORDERED: SULF1TAB38 PO (23:43)
[2022-12-17] MEDS ORDERED: PRD20T PO (23:43)
--- NOTE | 2022-12-17 23:43 | ED General ---
General Chief Complaint: Allergic Reaction Stated Complaint: ALLERGIC REACTION Nursing Triage Note: Pt presents with c/o itching after taking her daughters augmentin that was approx 1 year old, and some AZO. Pt reports her heart was racing and theres a change in her voice. She took the medication due to a possible UTI. She states she went to the bathroom earlier and there was blood when she wiped. LMP is 12/01/22 Source of Information: Patient Exam Limitations: No Limitations History of Present Illness Date Seen by Provider: Dec 17, 2022 Time Seen by Provider: 21:40 Initial Comments This 42-year-old woman presents to the emergency room with complaints of allergic reaction believed to be caused by either Azo or Augmentin. Patient has been experiencing symptoms of urinary tract infection today including urinary frequency, urinary hesitancy, dysuria, and blood spotting with urination. She took some Augmentin that was left over from her daughter's prescription along with Azo. About 20 or 30 minutes later she developed intense itching, erythema of the skin, and heart rate around 140. She also developed a hoarse voice and upset stomach. She took Benadryl 50 mg at approximately 2030. She is now experiencing some improvement in her symptoms. She has had amoxicillin and Azo in the past without any problem. It is therefore suspicious that the causative agent is clavulanic acid. Despite taking Benadryl she is still extremely itchy. Allergies and Home Medications Allergies Coded Allergies: amoxicillin (Verified Allergy, Intermediate, Rash, Itching, Tachycardia, 12/17/22) Rash, Itching, Tachycardia clavulanic acid (Verified Allergy, Intermediate, Rash, Itching, Tachycardia, 12/17/22) Rash, Itching, Tachycardia phenazopyridine (Verified Allergy, Intermediate, Rash, Itching, Tachycardia, 12/17/22) Rash, Itching, Tachycardia Patient Home Medication List Home Medication List Reviewed: Yes Alprazolam (Alprazolam) 1 Mg Tablet, (Reported) Entered as Reported by: DAVID DEJESUS on 02/08/20 1133 Amitriptyline HCl (Amitriptyline HCl) 25 Mg Tablet, (Reported) Entered as Reported by: DAVID DEJESUS on 02/08/20 1133 Baclofen (Baclofen) 10 Mg Tablet, (Reported) Entered as Reported by: DAVID DEJESUS on 02/08/20 1133 Bupropion HCl (Bupropion HCl Sr) 150 Mg Tablet.er, (Reported) Entered as Reported by: DAVID DEJESUS on 02/08/20 113 Diclofenac Sodium (Diclofenac Sodium) 75 Mg Tablet.dr, (Reported) Entered as Reported by: DAVID DEJESUS on 02/08/201132 Famotidine (Pepcid) 40 Mg Tablet, 40 MG PO DAILY Prescribed by: LEEANNE WANG on 09/05/202006 Famotidine (Pepcid) 20 Mg Tablet, 20 MG PO BID Prescribed by: AMEENA TIWARI on 12/17/22 234 Hydrocodone/Acetaminophen (Hydrocodone-Acetamin 10-325 mg) 1 Each Tablet, (Reported) Entered as Reported by: DAVID DEJESUS on 02/08/201132 Hydroxyzine Pamoate (Hydroxyzine Pamoate) 50 Mg Capsule, 50 MG PO Q6H PRN for ITCHING Prescribed by: LEEANNE WANG on 09/05/202006 Prednisone (Prednisone) 20 Mg Tab, 40 MG PO DAILY Prescribed by: LEEANNE WANG on 09/05/202006 Prednisone (Prednisone) 20 Mg Tab, 40 MG PO DAILY Prescribed by: AMEENA TIWARI on 12/17/22 234 Pregabalin (Pregabalin) 150 Mg Capsule, (Reported) Entered as Reported by: DAVID DEJESUS on 02/08/201132 Propranolol HCl (Propranolol HCl) 20 Mg Tablet, 20 MG PO BID, (Reported) Entered as Reported by: JOSE SANTOS on 09/04/18 114 Sulfamethoxazole/Trimethoprim (Bactrim Ds Tablet) 1 Each Tablet, 1 EACH PO BID Prescribed by: AMEENA TIWARI on 12/17/222342 Topiramate (Topamax) 200 Mg Tablet, 200 MG PO BID, (Reported) Entered as Reported by: JOSE SANTOS on 09/04/18 1140 [folic] , (Reported) Entered as Reported by: DAVID DEJESUS on 02/08/201132 Review of Systems Review of Systems Constitutional: no symptoms reported EENTM: see HPI Respiratory: no symptoms reported Cardiovascular: see HPI Gastrointestinal: see HPI Genitourinary: no symptoms reported : No Musculoskeletal: no symptoms reported Skin: see HPI Psychiatric/Neurological: No Symptoms Reported Hematologic/Lymphatic: No Symptoms Reported Immunological/Allergic: see HPI Past Vetyvsl-Vcwrck-Ayfodf Hx Patient Social History Tobacco Use?: Yes Tobacco type used: Cigarettes Use of E-Cig and/or Vaping dev: No Substance use?: No Alcohol Use?: No Immunizations Up To Date Tetanus Booster (TDap): Unknown Seasonal Allergies Seasonal Allergies: No Past Medical History Surgeries: Yes (5 C-SECTIONS) Section Respiratory: No Cardiac: No Neurological: Yes Headaches /Migraines Reproductive Disorders: Yes Female Reproductive Disorders: Menstrual Problems Sexually Transmitted Disease: No HIV/AIDS: No Genitourinary: Yes UTI-Chronic Gastrointestinal: Yes Gastroesophageal Reflux, Chronic Constipation Musculoskeletal: Yes Arthritis, Chronic Back Pain Endocrine: No HEENT: Yes (GLASSES/CONTACTS) Loss of Vision: Bilateral Hearing Impairment: Denies Cancer: No Psychosocial: Yes Anxiety, Depression Integumentary: Yes (Chronic dermatitis of the hands) Blood Disorders: No Adverse Reaction/Blood Tranf: No (N/A) Family Medical History Family history: Hypertension 19 MOTHER No Pertinent Family Hx SOCIAL HISTORY: -ETOH--DENIES USE -DRUGS--DENIES USE BUT HAS TESTED + FOR AMPHETAMINES, METHAMPHETAMINES AND THC -SMOKES 1 PPD Physical Exam Vital Signs Vital Signs - First Documented 12/17/22 12/17/22 21:19 23:48 Temp 36.8 Pulse 118 Resp 18 B/P (MAP) 128/72 (90) Pulse Ox 96 O2 Delivery Room Air Capillary Refill : Less Than 3 Seconds Height, Weight, BMI Height: 5'1.00" Weight: 179lbs. 4.0oz. 81.321463xm; 37.00 BMI Method:Stated General Appearance: No Apparent Distress, WD/WN HEENT: PERRL/EOMI, Normal ENT Inspection, Other (Hoarse voice) Neck: Normal Inspection Respiratory: Lungs Clear, Normal Breath Sounds, No Accessory Muscle Use Cardiovascular: No Edema, No Murmur, Tachycardia Gastrointestinal: Soft; No Distended Extremity: Normal Inspection, No Pedal Edema Neurologic/Psychiatric: Alert, Oriented x3, No Motor/Sensory Deficits, Normal Mood/Affect Skin: Warm/Dry, Erythema Progress/Results/Core Measures Suspected Sepsis SIRS Temperature: Pulse: 118 Respiratory Rate: 18 Blood Pressure 128 /72 Mean: 90 Results/Orders Lab Results Laboratory Tests Test 12/17/22 21:27 12/17/22 21:40 Range/Units Urine Color YELLOW Urine Clarity CLOUDY Urine pH 5.5 5-9 Urine Specific [place] >=1.030 1.016-1.022 Urine Protein 2+ H NEGATIVE Urine Glucose (UA) TRACE H NEGATIVE Urine Ketones NEGATIVE NEGATIVE Urine Nitrite POSITIVE H NEGATIVE Urine Bilirubin NEGATIVE NEGATIVE Urine Urobilinogen 1.0 < = 1.0 MG/DL Urine Leukocyte Esterase TRACE H NEGATIVE Urine RBC (Auto) 3+ H NEGATIVE Urine RBC >100 H /HPF Urine WBC 10-25 H /HPF Urine Squamous Epithelial Cells 10-25 H /HPF Urine Crystals NONE /LPF Urine Bacteria MODERATE H /HPF Urine Casts NONE /LPF Urine Mucus LARGE H /LPF Urine Other /HPF Urine Culture Indicated YES Serum Test, Qualitative NEGATIVE NEGATIVE My Orders Orders - AMEENA CAO MD Ua Culture If Indicated (12/17/22 21:40) Hcg,Qualitative Serum (12/17/22 21:51) Ed Iv/Invasive Line Start (12/17/22 21:51) Famotidine Injection (Pepcid Injection) (12/17/22 22:00) Methylprednisolone Sod Succ (Solu-Medrol (12/17/22 22:00) Lactated Ringers (Lr 1000 Ml Iv Solution (12/17/22 22:00) Urine Culture (12/17/22 21:27) Sulfamethoxazole/Trimet Ds Tab (Bactrim (12/17/22 23:00) Bladder Scan (12/17/22 22:54) Medications Given in ED Current Medications Medications Dose Ordered Sig/Franc Route Start Time Stop Time Status Last Admin Dose Admin Famotidine 20 mg ONCE ONCE IVP 12/17/22 22:00 12/17/22 22:01 DC 12/17/22 21:58 20 MG Lactated Ringer's 1,000 ml @ 0 mls/hr Q0M ONCE IV 12/17/22 22:00 12/17/22 22:01 DC 12/17/22 21:58 1,000 MLS/HR Methylprednisolone Sodium Succinate 125 mg ONCE ONCE IVP 12/17/22 22:00 12/17/22 22:01 DC 12/17/22 21:58 125 MG Trimethoprim/ Sulfamethoxazole 1 ea ONCE ONCE PO 12/17/22 23:00 12/17/22 23:01 DC 12/17/22 23:25 1 EA Vital Signs/I&O 12/17/22 12/17/22 21:19 23:48 Temp 36.8 Pulse 118 118 Resp 18 16 B/P (MAP) 128/72 (90) 129/69 Pulse Ox 96 O2 Delivery Room Air 12/18/22 00:00 Output Total 34 ml Balance -34 ml Capillary Refill : Less Than 3 Seconds Blood Pressure Mean: 90 Progress Note : Progress Note Patient was interviewed and examined. Treatment included Solu-Medrol, Pepcid, and IV fluids. She had near resolution of her itching, skin erythema, and hoarse voice. Prescriptions were provided for Pepcid and prednisone to continue therapy and prevent rebound. Urinary tract infection was indeed identified on urinalysis with positive nitrite, greater than 100 RBC, 10-25 WBC, and moderate bacteria. This was treated with Bactrim. Cephalosporins were avoided due to concern for possible early anaphylaxis to amoxicillin. Patient was advised to list amoxicillin, clavulanic acid, and Azo as allergies because this reaction occurred after taking all 3 of these medications. These medications were added to her allergy list. She was advised to follow-up with repeat urinalysis after UTI is treated to ensure that hematuria resolves. Departure Impression Primary Impression: Allergic reaction caused by a drug Qualified Codes: T78.40XA - Allergy, unspecified, initial encounter Additional Impressions: Urinary tract infection Qualified Codes: N39.0 - Urinary tract infection, site not specified; R31.9 - Hematuria, unspecified Hematuria Qualified Codes: R31.9 - Hematuria, unspecified Disposition: 01 HOME, SELF-CARE Condition: Improved Departure-Patient Inst. Decision time for Depature: 23:39 Referrals: WILBERT KWONG (PCP/Family) Primary Care Physician Patient Instructions: Urinary tract infections in adults Add. Discharge Instructions: Drink plenty of clear liquids to stay well-hydrated. Take Pepcid (famotidine) and prednisone for the next few days as prescribed. Keep Benadryl (diphenhydramine) with you at all times over the next 3 days. Take 50 mg every 4 hours as needed for rebounding allergy symptoms. If symptoms become severe, affecting your airway, tongue, throat, lips, etc., take Benadryl 50 mg and return immediately to the emergency room or call 911. List Azo, amoxicillin, and clavulanic acid as allergies at your future healthcare encounters. Based on your prior history of medication tolerance, it is most likely the clavulanic acid from Augmentin that caused your allergy t eliel. Follow-up with your primary care provider initially by phone to review urine culture results on or Friday. Then follow-up in 2 or 3 weeks after you complete treatment for UTI to have your urine tested again. There was blood in your urine. It is important to make sure that blood clears on repeat testing. Blood in the urine could represent other illnesses such as chronic inflammation of the bladder, kidney stones, cancer, etc. Return to the ER if you have worsening symptoms despite following these instructions. All discharge instructions reviewed with patient and/or family. Voiced understanding. Scripts Famotidine (Pepcid) 20 Mg Tablet 20 MG PO BID, #10 TAB Prov: AMEENA CAO MD 12/17/22 Prednisone (Prednisone) 20 Mg Tab 40 MG PO DAILY, #4 TAB 0 Refills Prov: AMEENA CAO MD 12/17/22 Sulfamethoxazole/Trimethoprim (Bactrim Ds Tablet) 1 Each Tablet 1 EACH PO BID, #14 TAB Prov: AMEENA CAO MD 12/17/22 Copy Copies To 1: [facility]/AMEENA KAUR MD Dec 17, 2022 23:43
[2022-12-17 23:48] VITALS: BP 129/69
[2022-12-18] MEDS ORDERED: LORA-404 PO (21:48)
== END 2022-12-17 23:48 | disposition home or self-care (01) ==
LOC: EDUNIT# 21:09 → ER 21:11
DX: N39.0 Urinary tract infection, site not specified (principal); T36.0X5A Adverse effect of penicillins, initial encounter; T36.1X5A Adverse effect of cephalosporins and other beta-lactam antibiotics, initial encounter; T39.8X5A Adverse effect of other nonopioid analgesics and antipyretics, not elsewhere classified, initial encounter; R31.9 Hematuria, unspecified; F17.210 Nicotine dependence, cigarettes, uncomplicated; Z88.0 Allergy status to penicillin; Z88.2 Allergy status to sulfonamides
CPT/HCPCS: 36415; 81000; 84703; 87077; 87088; 87186

== ENCOUNTER 2022-12-18 20:53 | Emergency (ER) | payer OTHER ==
[~2022-12-18 20:53] MED LIST changes: +FAMO-119 PO
--- NOTE | 2022-12-18 21:13 | ED Cardiac General ---
History of Present Illness General Chief Complaint: Cardiac/General Problems Stated Complaint: RAPID HEART RATE Nursing Triage Note: PT AMB TO RM 10 WITH CC OF ALFREDO HR SINCE 1320 TODAY. PT STATES WAS SEEN LAST PM FOR ALLERGIC RXN. PT REPORTS WAS AT WORK WHEN SHE FELT HER HEART "POUNDING OUT OF HER CHEST." PT REPORTS CHEST TIGHTNESS [employer]. DENIES CARDIAC HX. PT A&OX4 Source: patient, old records Exam Limitations: no limitations History of Present Illness Date Seen by Provider: Dec 18, 2022 Time Seen by Provider: 20:57 Initial Comments 42-year-old female with recent UTI diagnosis that was on Augmentin as well as Azo that had concerns for an allergic reaction yesterday, came to the ER, treated appropriately. She is on a different antibiotic, around 1:00 today and noticed her heart was racing, heart rate over 100. No chest pain, shortness of breath, abdominal pain, nausea, vomiting, diarrhea, weakness, numbness, headache, vision changes, neck stiffness, or any other symptoms associated with it. She states she has panic attacks, is concerned that may be she is having 1 associated with the steroids. Allergies and Home Medications Allergies Coded Allergies: amoxicillin (Verified Allergy, Intermediate, Rash, Itching, Tachycardia, 12/17/22) Rash, Itching, Tachycardia clavulanic acid (Verified Allergy, Intermediate, Rash, Itching, Tachycardia, 12/17/22) Rash, Itching, Tachycardia phenazopyridine (Verified Allergy, Intermediate, Rash, Itching, Tachycardia, 12/17/22) Rash, Itching, Tachycardia Patient Home Medication List Home Medication List Reviewed: Yes Alprazolam (Alprazolam) 1 Mg Tablet, (Reported) Entered as Reported by: DAVID DEJESUS on 02/08/20 1133 Amitriptyline HCl (Amitriptyline HCl) 25 Mg Tablet, (Reported) Entered as Reported by: DAVID DEJESUS on 02/08/20 1133 Baclofen (Baclofen) 10 Mg Tablet, (Reported) Entered as Reported by: DAVID DEJESUS on 02/08/20 1133 Bupropion HCl (Bupropion HCl Sr) 150 Mg Tablet.er, (Reported) Entered as Reported by: DAVID DEJESUS on 02/08/20 1133 Diclofenac Sodium (Diclofenac Sodium) 75 Mg Tablet.dr, (Reported) Entered as Reported by: DAVID DEJESUS on 02/08/20 1133 Famotidine (Pepcid) 40 Mg Tablet, 40 MG PO DAILY Prescribed by: LEEANNE WANG on 09/05/202006 Famotidine (Pepcid) 20 Mg Tablet, 20 MG PO BID Prescribed by: AMEENA TIWARI on 12/17/22 2343 Hydrocodone/Acetaminophen (Hydrocodone-Acetamin 10-325 mg) 1 Each Tablet, (Reported) Entered as Reported by: DAVID DEJESUS on 02/08/20 113 Hydroxyzine Pamoate (Hydroxyzine Pamoate) 50 Mg Capsule, 50 MG PO Q6H PRN for ITCHING Prescribed by: LEEANNE WANG on 09/05/202006 Prednisone (Prednisone) 20 Mg Tab, 40 MG PO DAILY Prescribed by: LEEANNE WANG on 09/05/202006 Prednisone (Prednisone) 20 Mg Tab, 40 MG PO DAILY Prescribed by: AMEENA TIWARI on 12/17/22 234 Pregabalin (Pregabalin) 150 Mg Capsule, (Reported) Entered as Reported by: DAVID DEJESUS on 02/08/20 113 Propranolol HCl (Propranolol HCl) 20 Mg Tablet, 20 MG PO BID, (Reported) Entered as Reported by: JOSE SANTOS on 09/04/18 114 Sulfamethoxazole/Trimethoprim (Bactrim Ds Tablet) 1 Each Tablet, 1 EACH PO BID Prescribed by: AMEENA TIWARI on 12/17/22 234 Topiramate (Topamax) 200 Mg Tablet, 200 MG PO BID, (Reported) Entered as Reported by: JOSE SANTOS on 09/04/18 1140 [folic] , (Reported) Entered as Reported by: DAVID DEJESUS on 02/08/20 1133 Review of Systems Review of Systems Constitutional: No fever EENTM: No Symptoms Reported Respiratory: No Symptoms Reported Cardiovascular: See HPI Gastrointestinal: No Symptoms Reported Genitourinary: No Symptoms Reported Musculoskeletal: no symptoms reported Skin: no symptoms reported Psychiatric/Neurological: See HPI Endocrine: No Symptoms Reported Hematologic/Lymphatic: No Symptoms Reported Past Ropftpg-Ttqoeg-Ohowcq Hx Patient Social History Tobacco Use?: Yes Tobacco type used: Cigarettes Smoking Status: Current Everyday Smoker Substance use?: No Alcohol Use?: No Pt feels they are or have been: No Immunizations Up To Date Tetanus Booster (TDap): Unknown Seasonal Allergies Seasonal Allergies: No Past Medical History Surgeries: Yes (5 C-SECTIONS) Section Respiratory: No Cardiac: No Neurological: Yes Headaches /Migraines Reproductive Disorders: Yes Female Reproductive Disorders: Menstrual Problems Sexually Transmitted Disease: No HIV/AIDS: No Genitourinary: Yes UTI-Chronic Gastrointestinal: Yes Gastroesophageal Reflux, Chronic Constipation Musculoskeletal: Yes Arthritis, Chronic Back Pain Endocrine: No HEENT: Yes (GLASSES/CONTACTS) Loss of Vision: Bilateral Hearing Impairment: Denies Cancer: No Psychosocial: Yes Anxiety, Depression Integumentary: Yes (Chronic dermatitis of the hands) Blood Disorders: No Adverse Reaction/Blood Tranf: No (N/A) Family Medical History Family history: Hypertension 19 MOTHER No Pertinent Family Hx SOCIAL HISTORY: -ETOH--DENIES USE -DRUGS--DENIES USE BUT HAS TESTED + FOR AMPHETAMINES, METHAMPHETAMINES AND THC -SMOKES 1 PPD Physical Exam Vital Signs Vital Signs - First Documented 12/18/22 20:57 Pulse 104 Resp 19 B/P (MAP) 149/95 (113) Pulse Ox 95 O2 Delivery Room Air Capillary Refill : Less Than 3 Seconds Height, Weight, BMI Height: 5'1.00" Weight: 179lbs. 4.0oz. 81.630221if; 37.00 BMI Method:Stated General Appearance: WD/WN, Anxious HEENT: PERRL/EOMI, Normal ENT Inspection, Pharynx Normal Neck: Full Range of Motion, Normal Inspection, Non Tender, Supple Respiratory: Chest Non Tender, Lungs Clear, Normal Breath Sounds, No Accessory Muscle Use, No Respiratory Distress Cardiovascular: No Edema, Normal Peripheral Pulses, Tachycardia Gastrointestinal: Normal Bowel Sounds, Non Tender, Soft; No Distended, No Guarding Extremity: Normal Capillary Refill, Normal Inspection, Normal Range of Motion, Non Tender, No Calf Tenderness, No Pedal Edema Neurologic/Psychiatric: Alert, Oriented x3, No Motor/Sensory Deficits, Normal Mood/Affect Skin: Normal Color, Warm/Dry Progress/Results/Core Measures Results/Orders My Orders Orders - GERMAN SORENSEN MD Lorazepam Injection (Ativan Injection) (12/18/22 21:15) Ekg Tracing (12/18/22 21:11) Chest 1 View, Ap/Pa Only (12/18/22 21:11) Medications Given in ED Current Medications Medications Dose Ordered Sig/Franc Route Start Time Stop Time Status Last Admin Dose Admin Lorazepam 1 mg ONCE ONCE IM 12/18/22 21:15 12/18/22 21:16 DC 12/18/22 21:28 1 MG Vital Signs/I&O 12/18/22 20:57 Pulse 104 Resp 19 B/P (MAP) 149/95 (113) Pulse Ox 95 O2 Delivery Room Air Blood Pressure Mean: 113 Progress Progress Note : Progress Note 42-year-old female with above history coming in feeling anxious and heart rate elevated. ABCs were intact and vitals were stable on presentation although she was mildly tachycardic. No chest pain or shortness of breath, no clinical signs of a DVT. She would otherwise be low risk for a DVT or PE per Blanco criteria. An IV was placed and she was given Ativan since she does have a significant history of anxiety. She is feeling a lot better after this. Chest x-ray ordered and interpreted by me showing normal cardiac silhouette, no pneumothorax, no opacities. EKG ordered interpreted by me showing no STEMI, and she is now in normal sinus rhythm with no significant abnormality. Given her history of anxiety with the recent steroid use that was needed due to the allergic reaction, I think they are likely linked. Does not seem to have any li fe-threatening issues at this time. I believe she stable for discharge with outpatient follow-up. She was sent home with strict return precautions Of note, when I was going over discharge instructions, the patient stated that her son was murdered about a year ago and about the 16th each month things get worse with her anxiety. She is thinking about the court case coming up where the ligated motor is pleading not guilty and that is stressing her out. We will send a prescription for a few doses of Ativan so she can follow-up with her PCP regarding her anxiety. Initial ECG Impression Date: Dec 18, 2022 Initial ECG Impression Time: 21:28 Initial ECG Rate: 94 Initial ECG Rhythm: Normal Sinus Comment Narrow QRS, normal axis, subtle ST depression in the lateral leads and inferior ly which is nonspecific, no significant T wave inversions Diagnostic Imaging Diagonstic Imaging: Xray (chest) Comments NAME: HARI JAY [facility] REC#: [id number] PT STATUS: REG ER : 1980 PHYSICIAN: GERMAN SORENSEN MD ADMIT DATE: 12/18/22/ER Draft Date of Exam:12/18/22 CHEST 1 VIEW, AP/PA ONLY INDICATION: Shortness of breath, chest tightness. Frontal chest obtained at 9:24 p.m. Heart and mediastinal silhouette are normal in appearance. Lungs appear clear. There is no focal infiltrate or pneumothorax or pleural fluid. IMPRESSION: No acute process in the chest. Dictated on workstation # [id number] Dict: 12/18/222127 Trans: 12/18/222128 CVB [id number] Interpreted by: BRIANA SPARROW MD Electronically signed by: Departure Impression Primary Impression: Tachycardia Additional Impression: Allergic reaction Qualified Codes: T78.40XD - Allergy, unspecified, subsequent encounter Disposition: 01 HOME, SELF-CARE Condition: Stable Departure-Patient Inst. Decision time for Depature: 21:45 Referrals: WILBERT KWONG (PCP/Family) Primary Care Physician Patient Instructions: Sinus Tachycardia (DC), Allergic Reaction ED Add. Discharge Instructions: You are likely having a reaction to the steroids which can heightened anxiety and your heart rate. Does not seem to be life-threatening at this time which is reassuring. Please give this some time to improve and you can take Benadryl tonight if needed. The medicine we gave you will make you sleepy for some time. Please follow back up with your regular doctor if you are not seeing improvement. Scripts Lorazepam (Ativan) 0.5 Mg Tablet 0.5 MG PO DAILY PRN for ANXIETY for 5 Days, #5 TAB Prov: GERMAN SORENSEN MD 12/18/22 Work/School Note: Work Release Form Date Seen in the Emergency Department: Dec 18, 2022 Return to Work: Dec 19, 2022 Restrictions: No Restrictions GERMAN SORENSEN MD Dec 18, 2022 21:13
[2022-12-18] MEDS ORDERED: LORazepam INJ 2 MG/ML (ATIVAN) VIAL IM ONE (21:15)
--- NOTE | 2022-12-18 21:30 | Diagnostic Imaging Report ---
INDICATION: Shortness of breath, chest tightness. Frontal chest obtained at 9:24 p.m. Heart and mediastinal silhouette are normal in appearance. Lungs appear clear. There is no focal infiltrate or pneumothorax or pleural fluid. IMPRESSION: No acute process in the chest. Dictated by: Dictated on workstation # [id number]
[2022-12-18] MEDS ORDERED: LORA-404 PO (21:48)
[2022-12-18 21:49] VITALS: BP 117/71
== END 2022-12-18 21:49 | disposition home or self-care (01) ==
LOC: EDUNIT# 20:53 → ER 20:55
DX: R00.0 Tachycardia, unspecified (principal); T36.8X5A Adverse effect of other systemic antibiotics, initial encounter; N39.0 Urinary tract infection, site not specified
CPT/HCPCS: 71045; 93005